=== PATIENT | female | born 1980 | race Caucasian/White ===

== ENCOUNTER 2020-09-16 04:09 | Inpatient (IN) | payer OTHER, SELFPAY ==
[2020-09-16] VITALS (7 sets, daily range): BP systolic 112–137; BP diastolic 63–90; PULSE 80–103; RESP 16–20; TEMP 36.2–36.7; O2SAT 98–100; BMI 28.3
--- NOTE | ~2020-09-16 | CT_ITS ---
EXAMINATION: CT abdomen pelvis w con DATE: 09/16/2020 05:37 INDICATION: Abdominal pain TECHNIQUE: Computed tomography (CT) of the abdomen and pelvis was performed with 100 mL Omnipaque-350 intravenous contrast. Automated exposure control and iterative reconstruction technique were employe d. The dose-length product was 440.13 mGy-cm. COMPARISON: None FINDINGS: Lung bases are clear. Heart size is normal. No pericardial or pleural effusion. Cholecystectomy clips at the gallbladder fossa. Liver, spleen, pancreas and bilateral adrenal glands are normal. Nonobstru cting 5 mm right renal stone.. 4 mm left renal cyst. Mild scattered diverticulosis with inflammatory stranding surrounding a diverticulum at the distal descending colon consistent with diverticulitis. N o abscess or free intraperitoneal gas or fluid. Small bowel and appendix are normal. Bladder is lou l. The uterus is not identified and has likely been surgically resected. Small fat-containing umbilic al and supraumbilical ventral hernias. Mild scattered degenerative skeletal changes in the spine and at both hips. IMPRESSION: 1. Radiographically uncomplicated diverticulitis. 2. Nonobstructing 5 mm right renal stone. Reviewed, dictated and finalized at location A. ESTIMATOR
[2020-09-16 04:47] LABS: Basophils Absolute Auto 0.1 K/mm3 (0.0-0.1); Basophils Percent Auto 0.7 % (0.2-1.2); Eosinophils Absolute Auto 0.2 K/mm3 (0-0.3); Eosinophils Percent Auto 1.5 % (0-4.4); Hematocrit 41.7 % (37.0-47.0); Hemoglobin 13.8 g/dL (12.0-15.0); Immature Granulocyte Absolute 0.02 K/mm3 (0.00-0.031); Immature Granulocyte Percent A 0.2 % (0-0.5); Lymphocytes Absolute Auto 2.38 K/mm3 (0.9-3.2); Mean Corpuscular HGB Conc 33.1 g/dl (32-36); Mean Corpuscular Volume 87.6 fl (80-100); Mean Platelet Volume 9.2 fl (7.4-10.4); Monocytes Absolute Auto 0.9 K/mm3 (0.1-0.6); Neutrophils Absolute Auto 7.3 K/mm3 (1.3-6.7); Neutrophils Percent Auto 67.6 % (45.5-73.1); Platelet Count Result 314 k/mm3 (150-375); Red Blood Count 4.76 M/mm3 (4.2-5.4); Red Cell Distribution Width 12.5 % (11.5-14.5); White Blood Count 10.8 K/mm3 (4.5-10.0)
[2020-09-16] MEDS: SODIUM CHLORIDE 0.9% IV 1,000 ML 999 ML IV CONT (04:54)
[2020-09-16] MEDS: ONDANSETRON INJ 4 MG/2 ML VIAL IV PUSH ×2 (04:55→09:56)
[2020-09-16] MEDS: MORPHINE SULFATE (*CRX) 4 MG/ML INJ IV PUSH (04:55)
--- NOTE | 2020-09-16 04:55 | ED.GENADULT ---
HPI - General Adult General Chief complaint: Abdominal Pain Stated complaint: abd pain, nausea Time Seen by Provider: 09/16/20 04:21 History of Present Illness HPI narrative: Patient 39-year-old female who presents the emergency department with chief complaint of abdominal pain. Patient reports that she had pain in the left lower quadrant started several days ago reports it is worse with movement and improved with rest. The patient states is not improved by anything states that she has prior history of diverticulosis diverticulitis and has had a small bowel obstruction in the past. Patient states this feels similar to whenever she had a small bowel obstruction. Patient reports that she has had decreased stool and has not been passing gas today. Patient denies fever denies chills denies vomiting. Related Data Home Medications Medication Instructions Recorded Confirmed No Home Medications 09/16/20 09/16/20 Allergies Allergy/AdvReac Type Severity Reaction Status Date / Time No Known Allergies Allergy Unknown Uncoded 09/16/20 04:13 Review of Systems Review of Systems: Narrative: A 10 system review of systems was completed on the patient and is negative except for what is stated in the HPI. Nursing and ancillary documentation was reviewed. [facility] Family History Family History (System 01/20/20 @ 07:38 by Desiree Meadows) Other Carcinoma of colon Diabetes mellitus Family history of coronary artery disease Social History Social History (System 01/20/20 @ 07:38 by Desiree Meadows) Alcohol intake: never Comments Patient has past medical history significant for diverticulitis and small bowel obstruction Social history the patient denies smoking Exam Narrative: Exam Narrative: GENERAL: Well-appearing, well-nourished, and in no acute distress. HEAD: Normocephalic, atraumatic. EYES: PERRLA and EOMI. ENT: Nares clear, no rhinorrhea or epistaxis. Mucous membranes moist. NECK: Supple. CHEST: Clear to auscultation. No respiratory distress. HEART: Regular rate and rhythm. No murmur heard. Normal peripheral pulses. ABDOMEN: Soft, diffusely tender worse in the left lower quadrant, nondistended, normal active bowel sounds. EXTREMITIES: Normal range of motion. No edema. SKIN: Warm, dry, no rash. NEURO: No focal deficits. Alert and oriented x3. PSYCH: Normal mood and affect. Course Course Emergency Course: CT scan showed evidence of acute diverticulitis. There is no evidence of bowel obstruction or perforation or abscess. Patient was still having moderate to severe pain patient has had multiple doses of IV pain medication in the emergency department without relief plan at this point will be to start IV antibiotics and admit the patient for pain control and treatment of her diverticulitis. Vital Signs Vital signs: Vital Signs Temperature 36.2 C L 09/16/20 04:11 Pulse Rate 103 H 09/16/20 04:11 Respiratory Rate 16 09/16/20 04:11 Blood Pressure 137/88 09/16/20 04:11 Pulse Oximetry 100 09/16/20 04:11 Temperature 36.2 C L 09/16/20 04:11 Pulse Rate 91 09/16/20 06:20 Respiratory Rate 20 09/16/20 06:20 Blood Pressure 121/77 09/16/20 06:20 Pulse Oximetry 100 09/16/20 06:20 Medical Decision Making Vital Signs Vital Signs: Vital Signs Temperature 36.2 C L 09/16/20 04:11 Pulse Rate 103 H 09/16/20 04:11 Respiratory Rate 16 09/16/20 04:11 Blood Pressure 137/88 09/16/20 04:11 Pulse Oximetry 100 09/16/20 04:11 Temperature 36.2 C L 09/16/20 04:11 Pulse Rate 91 09/16/20 06:20 Respiratory Rate 20 09/16/20 06:20 Blood Pressure 121/77 09/16/20 06:20 Pulse Oximetry 100 09/16/20 06:20 Lab Data Result diagrams: 09/16/20 04:35 09/16/20 04:35 Labs: Lab Results 09/16/20 09/16/20 09/16/20 Range/Units 04:35 04:35 04:35 WBC 10.8 H (4.5-10.0) K/mm3 RBC 4.76 (4.2-5.4) M/mm3 Hgb 13.8 (12.0-15
[2020-09-16 04:58] LABS: Add Urine Microscopic? NO; Appearance Urine Clear (Clear); Bilirubin Urine Negative (Negative); Blood Urine Negative (Negative); Color Urine Colorless (Yellow); Glucose Urine UA Negative (Negative); Ketones Urine Negative (Negative); Leukocyte Esterase Ur Negative LEU/UL (Negative); Mucus Urine Rare /lpf; Nitrate Urine Negative (Negative); Protein Urine Negative (Negative); Specific Grav Ur 1.009 (1.001-1.035); Urobilinogen Urine Negative mg/dL (<2.0); WBC Urine 0-3 /hpf
[2020-09-16 04:59] LABS: Alanine Aminotransferase 28 U/L (4-35); Albumin Level 4.5 g/dL (3.5-5.1); Alkaline Phosphatase 154 U/L (38-126); Anion Gap 9 mmol/L (8-16); Aspartate Amino Transferase 34 U/L (14-36); Bilirubin,Total 0.5 mg/dL (0.2-1.3); Blood Urea Nitrogen 15 mg/dL (7-17); Calcium 9.7 mg/dL (8.4-10.2); Carbon Dioxide 26 mmol/L (22-30); Chloride 104 mmol/L (98-107); Estimated CRCL calculation 89 ml/min; Estimated Glomerular Filt Rate > 60; Glucose 118 mg/dL (65-105); Lipase 313 U/L (23-300); Potassium 4.2 mmol/L (3.4-5.0); Sodium 139 mmol/L (137-145)
--- NOTE | 2020-09-16 05:16 | PC.NURSE ---
Pt. does not have a uterus or ovaries. UCG not needed.
[2020-09-16 05:24] LABS: Lactic Acid Reflex 1.6 mmol/L (0.7-2.1)
[2020-09-16] MEDS: HYDROmorphone HCL INJ (*CRX) 1 MG/ML SYR IV PUSH ×2 (06:18→07:16)
[2020-09-16] MEDS: metroNIDAZOLE 500 MG/ISO 100ML 500 MG/100 ML BAG 100 MG IVPB ×3 (07:19→17:37)
--- NOTE | 2020-09-16 09:15 | PC.NURSE ---
This patient, Arielle Aviles, was admitted to Medical Room 343-01. Patient/family oriented to hospital policies and general routines including ID bracelet, bed and alarms, visiting hours, pain management, procedures, bathroom and other care routines, personal items, smoking policy, room service/diet, and visiting hours. Information on how to activate the Rapid Response Team has been discussed. Patient/Family are encouraged to report perceived risks to care and to ask questions if they do not understand what they are told or what they should do.
[2020-09-16] MEDS: SODIUM CHLORIDE 0.9% IV 1,000 ML 125 ML IV CONT ×2 (09:50→20:05)
[2020-09-16] MEDS: HYDROmorphone HCL INJ (*CRX) 1 MG/ML SYR 0.5 MG IV PUSH ×3 (11:41→21:42)
--- NOTE | 2020-09-16 12:17 | PM.IMHP ---
H&P: HPI History of Present Illness Date/Time: 09/16/20 12:17 Chief Complaint: Abdominal pain Narrative: Arielle Aviles is a 39 year old female with a past medical history diverticulosis and diverticulitis patient presented emergency department with a complaint abdominal pain along the left lower quadrant, pain is persisting for last couple of days and now getting more worse, feel nauseated poor appetite, pain is constant gets worse with movement and walking, patient denies any bleeding, states last couple of days very small amount of BM, patient states she had a similar symptoms last time and patient was diagnosed with small-bowel obstruction, to further evaluate patient had a CT scan of the abdomen which showed: Radiographically uncomplicated diverticulitis no SBO. Patient was started on levofloxacin and Flagyl from ER, will continue pain management, the patient on clear liquid and hydrate the patient, continue to monitor, will consult GI for further recommendation Review of Systems Review of Systems: All systems reviewed & are unremarkable except as noted in HPI and below PMFSH Family History Family History Other Carcinoma of colon Other Diabetes mellitus Grandparent Heart attack Other Family history of coronary artery disease Social History Social History (System 01/20/20 @ 07:38 by Desiree Meadows) Smoking status: Former smoker Alcohol intake: current Drinks per week: 5 Substance use: never Spiritual care concerns: No Meds Home Medications and Allergies Home Medications Medication Instructions Recorded Confirmed Type No Home Medications 09/16/20 09/16/20 History Allergies Allergy/AdvReac Type Severity Reaction Status Date / Time No Known Allergies Allergy Verified 09/16/20 09:32 Vital Signs Vital Signs - 24 hr 09/16/20 04:11 09/16/20 06:20 09/16/20 07:30 Temperature 97.2 F L Pulse Rate 103 H 91 91 Respiratory Rate 16 20 16 Blood Pressure 137/88 121/77 137/90 Pulse Oximetry 100 100 99 09/16/20 08:54 09/16/20 09:42 Temperature 97.4 F L Pulse Rate 82 83 Respiratory Rate 16 18 Blood Pressure 120/85 112/77 Pulse Oximetry 99 98 Exam Narrative: Exam Narrative: Patient is comfortable, NAD HEENT: eyes are clear and none icteric LUNGS:CTA HEART: RR S1S2 ABD: Bowel sounds are faint diffusely tender Lower extremities: no edema SKIN: nonjaundiced Neuro: grossly intact. H&P: Results Labs Labs: Short CBC 09/16/20 Range/Units 04:35 WBC 10.8 H (4.5-10.0) K/mm3 Hgb 13.8 (12.0-15.0) g/dL Hct 41.7 (37.0-47.0) % Plt Count 314 (150-375) k/mm3 BMP 09/16/20 04:35 Sodium 139 Potassium 4.2 Chloride 104 Carbon Dioxide 26 BUN 15 Creatinine 0.60 L Glucose 118 H Calcium 9.7 Liver Function 09/16/20 Range/Units 04:35 Total Bilirubin 0.5 (0.2-1.3) mg/dL AST 34 (14-36) U/L ALT 28 (4-35) U/L Alkaline Phosphatase 154 H (38-126) U/L Albumin 4.5 (3.5-5.1) g/dL Urine 09/16/20 Range/Units 04:35 Urine Color Colorless (Yellow) Urine Appearance Clear (Clear) Urine pH 6.0 (5.0-9.0) Ur Specific [place] 1.009 (1.001-1.035) Urine Protein Negative (Negative) mg/dL Urine Glucose (UA) Negative (Negative) mg/dL Assessment and Plan Assessment and plan (1) Acute diverticulitis: Code(s): K57.92 - Diverticulitis of intestine, part unspecified, without perforation or abscess without bleeding Status: Acute Additional Plan Arielle Aviles is a 39 year old female with a past medical history diverticulosis and diverticulitis patient presented emergency department with a complaint abdominal pain along the left lower quadrant, pain is persisting for last couple of days and now getting more worse, feel nauseated poor appetite, pain is constant gets worse with movement and walking, patient denies any bleeding, states la
[2020-09-16] MEDS: ACETAMINOPHEN 325 MG TABLET 650 MG PO (23:04)
[2020-09-17] MEDS: metroNIDAZOLE 500 MG/ISO 100ML 500 MG/100 ML BAG 100 MG IVPB ×5 (00:14→23:33)
[2020-09-17] MEDS: SODIUM CHLORIDE 0.9% IV 1,000 ML 125 ML IV CONT ×2 (05:01→16:15)
[2020-09-17] MEDS: HYDROmorphone HCL INJ (*CRX) 1 MG/ML SYR 0.5 MG IV PUSH ×5 (05:01→21:13)
[2020-09-17 06:00] VITALS: BP 100/62; PULSE 85; RESP 18; TEMP 36.4; O2SAT 96
[2020-09-17 06:21] LABS: Hematocrit 37.3 % (37.0-47.0); Mean Corpuscular HGB Conc 32.2 g/dl (32-36); Mean Corpuscular Hemoglobin 28.2 pg (26-34); Mean Corpuscular Volume 87.8 fl (80-100); Mean Platelet Volume 9.2 fl (7.4-10.4); Platelet Count Result 269 k/mm3 (150-375); Red Blood Count 4.25 M/mm3 (4.2-5.4); Red Cell Distribution Width 12.6 % (11.5-14.5); White Blood Count 9.3 K/mm3 (4.5-10.0)
[2020-09-17 06:37] LABS: Alanine Aminotransferase 20 U/L (4-35); Albumin Level 3.7 g/dL (3.5-5.1); Alkaline Phosphatase 113 U/L (38-126); Anion Gap 7 mmol/L (8-16); Aspartate Amino Transferase 25 U/L (14-36); Bilirubin,Total 0.7 mg/dL (0.2-1.3); Blood Urea Nitrogen 7 mg/dL (7-17); Calcium 8.9 mg/dL (8.4-10.2); Carbon Dioxide 25 mmol/L (22-30); Chloride 105 mmol/L (98-107); Estimated CRCL calculation 89 ml/min; Estimated Glomerular Filt Rate > 60; Glucose 103 mg/dL (65-105); Magnesium 1.8 mg/dL (1.6-2.3); Potassium 3.9 mmol/L (3.4-5.0); Sodium 137 mmol/L (137-145)
[2020-09-17] MEDS: ONDANSETRON INJ 4 MG/2 ML VIAL IV PUSH (09:12)
--- NOTE | 2020-09-17 11:23 | WPDGICN ---
Assessment and Plan Assessment and plan (1) Acute diverticulitis: Code(s): K57.92 - Diverticulitis of intestine, part unspecified, without perforation or abscess without bleeding Status: Acute Assessment and Plan: Patient's symptom complex all most consistent with acute diverticulitis. CT scan appears to confirm this finding. Plan is for bowel rest with IV antibiotics. We will hour to have liquid diet if tolerated. Be slow to advance this depending on whether she has bowel movements. Continue broad-spectrum antibiotics for the immediate future. We will consider a colonoscopy electively in 1-2 months after resolution of symptoms hopefully she will continue to improve. (2) Nephrolithiasis: Code(s): N20.0 - Calculus of kidney Status: Acute Assessment and Plan: Asymptomatic kidney stone noted on CT scan. This is likely just incidental at this time. GI Consult Note Consult date/time: 09/17/20 11:23 HPI: Arielle Aviles is a 39 year old female I am asked to see at the request of the hospitalist service. Patient reports low abdominal pain that began night before last. Particularly in the left lower quadrant. She states that she went to the emergency room a CT scan was performed which was consistent with diverticulitis. She has had no bowel movements since admission hospital. Pain continues to be present. She denies nausea vomiting but has no appetite. Patient reports last hospitalization in 2018 where she was concerned over possible small-bowel obstruction. She improved with broad-spectrum antibiotic coverage a colonoscopy performed during that hospital stay was unremarkable. No evidence of diverticulitis or enteritis was confirmed at that time. It was presumed she had an infectious etiology. Patient currently complains of ongoing pain with her current admission. Review of Systems Review of Systems: All systems reviewed & are unremarkable except as noted in HPI and below PMFSH Family History Family History Other Carcinoma of colon Other Diabetes mellitus Grandparent Heart attack Other Family history of coronary artery disease Social History Social History (System 01/20/20 @ 07:38 by Desiree Meadows) Smoking status: Former smoker Alcohol intake: current Drinks per week: 5 Substance use: never Spiritual care concerns: No Meds Home Medications and Allergies Home Medications Medication Instructions Recorded Confirmed Type No Home Medications 09/16/20 09/16/20 History Allergies Allergy/AdvReac Type Severity Reaction Status Date / Time No Known Allergies Allergy Verified 09/16/20 09:32 Vital Signs Vital Signs - 24 hr 09/16/20 14:00 09/16/20 21:06 09/17/20 06:00 Temperature 98.0 F 97.9 F 97.6 F Pulse Rate 80 97 85 Respiratory Rate 18 17 18 Blood Pressure 118/86 117/63 100/62 Pulse Oximetry 100 98 96 Exam Narrative: Exam Narrative: Physical exam reveals patient to be alert. Vital signs are stable. She is afebrile. HEENT exam reveals no scleral icterus. Lungs are clear to auscultation and percussion. Heart is without murmur or extra sounds. Abdominal exam bowel sounds are present abdomen is soft tender particularly in the low abdomen. More so on the left side. No masses are elicited. Digital external rectal exam is deferred at this time. Results Labs CBC & Chem 7: 09/17/20 05:59 09/17/20 05:59 Labs: Short CBC 09/17/20 Range/Units 05:59 WBC 9.3 (4.5-10.0) K/mm3 Hgb 12.0 (12.0-15.0) g/dL Hct 37.3 (37.0-47.0) % Plt Count 269 (150-375) k/mm3 BMP 09/17/20 05:59 Sodium 137 Potassium 3.9 Chloride 105 Carbon Dioxide 25 BUN 7 D Creatinine 0.70 Glucose 103 Calcium 8.9 Liver Function 09/17/20 Range/Units 05:59 Total Bilirubin 0.7 (0.2-1.3) mg/dL AST 25 (14-36) U/L ALT 20 (4-35)
[2020-09-17] MEDS: ACETAMINOPHEN 325 MG TABLET 650 MG PO (11:50)
[2020-09-17 14:00] VITALS: BP 105/64; PULSE 93; RESP 16; TEMP 36.1; O2SAT 97
--- NOTE | 2020-09-17 15:10 | PM.IMPN ---
Progress Note: A&P Assessment and Plan (1) Acute diverticulitis: Code(s): K57.92 - Diverticulitis of intestine, part unspecified, without perforation or abscess without bleeding Status: Acute Additional Plan 09/17/20 15:10 Arielle Aviles is a 39 year old female with a past medical history diverticulosis and diverticulitis patient presented emergency department with a complaint abdominal pain along the left lower quadrant, pain was persisting for last couple of days and was getting more worse, felt nauseated poor appetite, pain is constant gets worse with movement and walking, patient denies any bleeding, states last couple of days very small amount of BM, patient states she had a similar symptoms last time and patient was diagnosed with small-bowel obstruction, to further evaluate patient had a CT scan of the abdomen which showed: Radiographically uncomplicated diverticulitis no SBO. Patient was started on levofloxacin and Flagyl from ER, today patient still complains abdominal, passing little gas and no BM patient seen by GI agrees with the current management, will continue pain management, the patient on clear liquid and hydrate the patient, continue to monitor. Once patient pain has improved, having BM will advanced her diet and do the discharge planning. Subjective Date/time seen: 09/17/20 15:10 Arielle Aviles is a 39 year old female with a past medical history diverticulosis and diverticulitis patient presented emergency department with a complaint abdominal pain along the left lower quadrant, pain was persisting for last couple of days and was getting more worse, felt nauseated poor appetite, pain is constant gets worse with movement and walking, patient denies any bleeding, states last couple of days very small amount of BM, patient states she had a similar symptoms last time and patient was diagnosed with small-bowel obstruction, to further evaluate patient had a CT scan of the abdomen which showed: Radiographically uncomplicated diverticulitis no SBO. Patient was started on levofloxacin and Flagyl from ER, today patient still complains abdominal, passing little gas and no BM patient seen by GI agrees with the current management, will continue pain management, the patient on clear liquid and hydrate the patient, continue to monitor. Once patient pain has improved, having BM will advanced her diet and do the discharge planning. Review of Systems Review of Systems: All systems reviewed & are unremarkable except as noted in HPI and below Exam Narrative: Exam Narrative: Patient is comfortable, NAD HEENT: eyes are clear and none icteric LUNGS:CTA HEART: RR S1S2 ABD: Bowel sounds are faint diffusely tender Lower extremities: no edema SKIN: nonjaundiced Neuro: grossly intact. Objective Data Vital Signs Vital Signs: Vital Signs - 24 hr 09/16/20 21:06 09/17/20 06:00 Temperature 97.9 F 97.6 F Pulse Rate 97 85 Respiratory Rate 17 18 Blood Pressure 117/63 100/62 Pulse Oximetry 98 96 Intake/Output Intake/Output: Intake & Output 09/14/20 09/15/20 09/16/20 09/17/20 23:59 23:59 23:59 23:59 Intake Total 3010 2120 Output Total 1600 950 Balance 1410 1170 Meds/Results Medications: Active Medications Generic Name Dose Route Start Last Admin Trade Name Freq PRN Reason Stop Dose Admin Acetaminophen 650 mg 09/16/20 22:48 09/17/20 11:50 Acetaminophen 325 Mg Tablet PO 650 mg Q6H PRN Administration Mild Pain (1-3) or Fever Hydromorphone HCl 0.5 mg 09/16/20 07:48 09/17/20 13:12 Hydromorphone Hcl Inj (*Crx) 1 Mg/Ml Syr IV PUSH 0.5 mg Q4H PRN Administration Pain Rated 7-10 Metronidazole 500 mg in 100 mls @ 100 mls/hr 09/16/20 12:00 09/17/20 12:51 Flagyl 500 Mg/Iso Soln 100 Ml IVPB Infused Q6H WILEY Infusion Levofloxacin/Dextrose 750 mg in 150 mls @ 100 mls/hr 09/17/20 09:00 09/17/20 10:45 Levaquin 750 Mg/D5w 150 Ml IVPB Infused Q24H WILEY Infusi
[2020-09-17 19:44] VITALS: BP 122/66; PULSE 85; RESP 14; TEMP 36.9; O2SAT 100
[2020-09-18] MEDS: HYDROmorphone HCL INJ (*CRX) 1 MG/ML SYR 0.5 MG IV PUSH ×2 (01:49→08:55)
[2020-09-18] MEDS: SODIUM CHLORIDE 0.9% IV 1,000 ML 125 ML IV CONT (01:54)
[2020-09-18] MEDS: metroNIDAZOLE 500 MG/ISO 100ML 500 MG/100 ML BAG 100 MG IVPB ×4 (05:20→23:00)
[2020-09-18 05:24] VITALS: BP 106/64; PULSE 86; RESP 16; TEMP 36.5; O2SAT 96
[2020-09-18 05:58] LABS: Hematocrit 34.1 % (37.0-47.0); Hemoglobin 11.2 g/dL (12.0-15.0); Mean Corpuscular HGB Conc 32.8 g/dl (32-36); Mean Corpuscular Hemoglobin 29.1 pg (26-34); Mean Corpuscular Volume 88.6 fl (80-100); Mean Platelet Volume 9.3 fl (7.4-10.4); Platelet Count Result 251 k/mm3 (150-375); Red Blood Count 3.85 M/mm3 (4.2-5.4); Red Cell Distribution Width 12.3 % (11.5-14.5); White Blood Count 7.7 K/mm3 (4.5-10.0)
[2020-09-18 07:10] LABS: Alanine Aminotransferase 16 U/L (4-35); Albumin Level 3.3 g/dL (3.5-5.1); Alkaline Phosphatase 93 U/L (38-126); Anion Gap 6 mmol/L (8-16); Aspartate Amino Transferase 21 U/L (14-36); Bilirubin,Total 0.4 mg/dL (0.2-1.3); Blood Urea Nitrogen 7 mg/dL (7-17); Calcium 8.8 mg/dL (8.4-10.2); Carbon Dioxide 26 mmol/L (22-30); Chloride 107 mmol/L (98-107); Estimated CRCL calculation 89 ml/min; Estimated Glomerular Filt Rate > 60; Glucose 98 mg/dL (65-105); Magnesium 1.8 mg/dL (1.6-2.3); Potassium 3.7 mmol/L (3.4-5.0); Sodium 139 mmol/L (137-145)
--- NOTE | 2020-09-18 08:35 | WPDGIPROGNO ---
Progress Note: A&P Assessment and Plan (1) Acute diverticulitis: Code(s): K57.92 - Diverticulitis of intestine, part unspecified, without perforation or abscess without bleeding Status: Acute Assessment and Plan: Patient with acute sigmoid diverticulitis. This correlates with findings of CT scan. Because of ongoing tenderness would continue IV antibiotics. Advance diet at this time slowly. Consider laxatives or suppositories to encourage bowel movements. (2) Nephrolithiasis: Code(s): N20.0 - Calculus of kidney Status: Acute Assessment and Plan: Incidental finding at this time. Not symptomatic. Subjective Date/time seen: 09/18/20 08:35 Patient feels better today. Tolerating liquids with no difficulty. She reports pain is improving now localized to the left lower quadrant. Has passed flatus but denies any stool. Review of Systems Review of Systems: All systems reviewed & are unremarkable except as noted in HPI and below Exam Narrative: Exam Narrative: Physical exam reveals Vital Signs to be stable. Patient remains anicteric. Lungs are clear. Heart without murmur. Abdomen bowel sounds are present soft tenderness located in left lower quadrant. Objective Data Vital Signs Vital Signs: Vital Signs - 24 hr 09/17/20 14:00 09/17/20 19:44 09/18/20 05:24 Temperature 96.9 F L 98.4 F 97.7 F Pulse Rate 93 85 86 Respiratory Rate 16 14 16 Blood Pressure 105/64 122/66 106/64 Pulse Oximetry 97 100 96 Intake/Output Intake/Output: Intake & Output 09/15/20 09/16/20 09/17/20 09/18/20 23:59 23:59 23:59 23:59 Intake Total 3010 3640 1200 Output Total 1600 950 500 Balance 1410 2690 700 Meds/Results Medications: Active Medications Generic Name Dose Route Start Last Admin Trade Name Freq PRN Reason Stop Dose Admin Acetaminophen 650 mg 09/16/20 22:48 09/17/20 11:50 Acetaminophen 325 Mg Tablet PO 650 mg Q6H PRN Administration Mild Pain (1-3) or Fever Hydromorphone HCl 0.5 mg 09/16/20 07:48 09/18/20 01:49 Hydromorphone Hcl Inj (*Crx) 1 Mg/Ml Syr IV PUSH 0.5 mg Q4H PRN Administration Pain Rated 7-10 Metronidazole 500 mg in 100 mls @ 100 mls/hr 09/16/20 12:00 09/18/20 06:20 Flagyl 500 Mg/Iso Soln 100 Ml IVPB Infused Q6H WILEY Infusion Levofloxacin/Dextrose 750 mg in 150 mls @ 100 mls/hr 09/17/20 09:00 09/17/20 10:45 Levaquin 750 Mg/D5w 150 Ml IVPB Infused Q24H WILEY Infusion Sodium Chloride 1,000 mls @ 125 mls/hr 09/16/20 07:50 09/18/20 01:54 Normal Saline Iv IV CONT 125 mls/hr .Q8H WILEY Administration Ondansetron HCl 4 mg 09/16/20 07:48 09/17/20 09:12 Ondansetron Inj 4 Mg/2 Ml Vial IV PUSH 4 mg Q4H PRN Administration Nausea Radiology Results: ITS Impressions Abdomen/Pelvis CT 09/16/20 11:47 IMPRESSION: 1. Radiographically uncomplicated diverticulitis. 2. Nonobstructing 5 mm right renal stone. Labs Labs: Laboratory Results - last 24 hr 09/18/20 09/18/20 05:37 05:37 WBC 7.7 RBC 3.85 L Hgb 11.2 L Hct 34.1 L MCV 88.6 MCH 29.1 MCHC 32.8 RDW 12.3 Plt Count 251 MPV 9.3 Sodium 139 Potassium 3.7 Chloride 107 Carbon Dioxide 26 Anion Gap 6 L BUN 7 Creatinine 0.70 Estim Creat Clear Calc 89 Estimated GFR > 60 Glucose 98 Calcium 8.8 Magnesium 1.8 Total Bilirubin 0.4 AST 21 ALT 16 Alkaline Phosphatase 93 Total Protein 6.0 L Albumin 3.3 L
[2020-09-18] MEDS: BISACODYL 10 MG SUPPOSITORY RECTAL (08:55)
[2020-09-18 14:00] VITALS: BP 112/76; PULSE 80; RESP 16; TEMP 36.2; O2SAT 99
[2020-09-18 14:20] VITALS: O2SAT 98
--- NOTE | 2020-09-18 15:49 | PM.IMPN ---
Progress Note: A&P Assessment and Plan (1) Acute diverticulitis: Code(s): K57.92 - Diverticulitis of intestine, part unspecified, without perforation or abscess without bleeding Status: Acute Additional Plan 09/18/20 15:49 Arielle Aviles is a 39 year old female with a past medical history diverticulosis and diverticulitis patient presented emergency department with a complaint abdominal pain along the left lower quadrant, pain was persisting for last couple of days and was getting more worse, felt nauseated poor appetite, pain is constant gets worse with movement and walking, patient denies any bleeding, states last couple of days very small amount of BM, patient states she had a similar symptoms last time and patient was diagnosed with small-bowel obstruction, to further evaluate patient had a CT scan of the abdomen which showed: Radiographically uncomplicated diverticulitis no SBO. Patient was started on levofloxacin and Flagyl from ER, today patient still complains abdominal, passing little gas and no BM patient seen by GI agrees with the current management, will continue pain management, the patient on clear liquid and hydrate the patient, continue to monitor. Once patient pain has improved, having BM will advanced her diet and do the discharge planning. 09/18/20 patient was seen by GI patient was given suppository and did have a small-bowel movement, patient states the pain is little better not as nauseated patient is able to tolerate clear liquid will advanced diet as tolerated, denies any fever, will start the patient on [place] for pain management and use Dilaudid only as needed, the patient remains clinically stable will discharge the patient home tomorrow Subjective Date/time seen: 09/18/20 15:49 Arielle Aviles is a 39 year old female with a past medical history diverticulosis and diverticulitis patient presented emergency department with a complaint abdominal pain along the left lower quadrant, pain was persisting for last couple of days and was getting more worse, felt nauseated poor appetite, pain is constant gets worse with movement and walking, patient denies any bleeding, states last couple of days very small amount of BM, patient states she had a similar symptoms last time and patient was diagnosed with small-bowel obstruction, to further evaluate patient had a CT scan of the abdomen which showed: Radiographically uncomplicated diverticulitis no SBO. Patient was started on levofloxacin and Flagyl from ER, today patient still complains abdominal, passing little gas and no BM patient seen by GI agrees with the current management, will continue pain management, the patient on clear liquid and hydrate the patient, continue to monitor. Once patient pain has improved, having BM will advanced her diet and do the discharge planning. 09/18/20 patient was seen by GI patient was given suppository and did have a small-bowel movement, patient states the pain is little better not as nauseated patient is able to tolerate clear liquid will advanced diet as tolerated, denies any fever, will start the patient on [place] for pain management and use Dilaudid only as needed, the patient remains clinically stable will discharge the patient home tomorrow Review of Systems Review of Systems: All systems reviewed & are unremarkable except as noted in HPI and below Exam Narrative: Exam Narrative: Patient is comfortable, NAD HEENT: eyes are clear and none icteric LUNGS:CTA HEART: RR S1S2 ABD: Bowel sounds are faint diffusely tender Lower extremities: no edema SKIN: nonjaundiced Neuro: grossly intact. Objective Data Vital Signs Vital Signs: Vital Signs - 24 hr 09/17/20 19:44 09/18/20 05:24 09/18/20 14:00 Temperature 98.4 F 97.7 F 97.1 F L Pulse Rate 85 86 80 Respiratory Rate 14 16 16 Blood Pressure 122/66 106/64 112/76 Pulse Oximetry 100 96 99 09/18/20 14:20 Temperature Pulse Rate Respiratory Rate Blood Pressure Pul
[2020-09-18] MEDS: HYDROcodone/acetaminophen (*CRX) 5-325 MG TABLET 1 TAB PO (16:05)
[2020-09-18 19:47] VITALS: BP 110/64; PULSE 91; RESP 14; TEMP 36.3; O2SAT 96
[2020-09-19] MEDS: metroNIDAZOLE 500 MG/ISO 100ML 500 MG/100 ML BAG 100 MG IVPB (05:03)
[2020-09-19 05:36] VITALS: BP 118/73; PULSE 82; RESP 12; TEMP 36; O2SAT 100
[2020-09-19 06:22] LABS: Hemoglobin 12.2 g/dL (12.0-15.0); Mean Corpuscular Hemoglobin 29.4 pg (26-34); Mean Corpuscular Volume 89.2 fl (80-100); Mean Platelet Volume 9.4 fl (7.4-10.4); Platelet Count Result 291 k/mm3 (150-375); Red Blood Count 4.15 M/mm3 (4.2-5.4); Red Cell Distribution Width 12.2 % (11.5-14.5); White Blood Count 6.3 K/mm3 (4.5-10.0)
[2020-09-19 06:42] LABS: Alanine Aminotransferase 15 U/L (4-35); Albumin Level 3.4 g/dL (3.5-5.1); Alkaline Phosphatase 100 U/L (38-126); Anion Gap 7 mmol/L (8-16); Aspartate Amino Transferase 22 U/L (14-36); Bilirubin,Total 0.2 mg/dL (0.2-1.3); Blood Urea Nitrogen 10 mg/dL (7-17); Carbon Dioxide 26 mmol/L (22-30); Chloride 106 mmol/L (98-107); Estimated CRCL calculation 102 ml/min; Estimated Glomerular Filt Rate > 60; Glucose 113 mg/dL (65-105); Magnesium 1.8 mg/dL (1.6-2.3); Potassium 3.8 mmol/L (3.4-5.0); Sodium 139 mmol/L (137-145)
--- NOTE | 2020-09-19 08:49 | WPDGIPROGNO ---
Progress Note: A&P Assessment and Plan (1) Acute diverticulitis: Code(s): K57.92 - Diverticulitis of intestine, part unspecified, without perforation or abscess without bleeding Status: Acute Assessment and Plan: Patient with acute sigmoid diverticulitis. Clinically improving has been on intravenous antibiotics to date. Plan to change to oral antibiotics and continue these for 1 week after discharge. Allow diet as tolerated. Discharge later today or in the morning if primary service agrees. Follow-up colonoscopy anticipated in 1-2 months. Subjective Date/time seen: 09/19/20 08:49 Patient alert and comfortable this morning. Tolerating regular diet. States abdominal pain is much improved but still some discomfort in the left lower quadrant. Passed a bowel movement yesterday. Feels much improved no longer requiring pain medications. Review of Systems Review of Systems: All systems reviewed & are unremarkable except as noted in HPI and below Exam Narrative: Exam Narrative: Physical exam reveals patient to be alert comfortable at rest. Vital signs are stable. She is afebrile. HEENT exam she is anicteric. Lungs are clear to auscultation and percussion. Heart is without murmur. Abdomen bowel sounds present soft left lower quadrant tenderness is still present but improving. Objective Data Vital Signs Vital Signs: Vital Signs - 24 hr 09/18/20 14:00 09/18/20 14:20 09/18/20 19:47 Temperature 97.1 F L 97.4 F L Pulse Rate 80 91 Respiratory Rate 16 14 Blood Pressure 112/76 110/64 Pulse Oximetry 99 98 96 09/19/20 05:36 Temperature 96.8 F L Pulse Rate 82 Respiratory Rate 12 Blood Pressure 118/73 Pulse Oximetry 100 Intake/Output Intake/Output: Intake & Output 09/16/20 09/17/20 09/18/20 09/19/20 23:59 23:59 23:59 23:59 Intake Total 3010 3640 3780 500 Output Total 1600 950 500 300 Balance 1410 2690 3280 200 Meds/Results Medications: Active Medications Generic Name Dose Route Start Last Admin Trade Name Freq PRN Reason Stop Dose Admin Acetaminophen 650 mg 09/16/20 22:48 09/17/20 11:50 Acetaminophen 325 Mg Tablet PO 650 mg Q6H PRN Administration Mild Pain (1-3) or Fever Hydrocodone Bitart/Acetaminophen 1 tab 09/18/20 10:55 09/18/20 16:05 Hydrocodone/Acetaminophen (*Crx) 5-325 Mg Tablet PO 1 tab Q4-6H PRN Administration Pain Rated 4-6 Hydromorphone HCl 0.5 mg 09/16/20 07:48 09/18/20 08:55 Hydromorphone Hcl Inj (*Crx) 1 Mg/Ml Syr IV PUSH 0.5 mg Q4H PRN Administration Pain Rated 7-10 Metronidazole 500 mg in 100 mls @ 100 mls/hr 09/16/20 12:00 09/19/20 06:17 Flagyl 500 Mg/Iso Soln 100 Ml IVPB Infused Q6H WILEY Infusion Levofloxacin/Dextrose 750 mg in 150 mls @ 100 mls/hr 09/17/20 09:00 09/19/20 08:43 Levaquin 750 Mg/D5w 150 Ml IVPB 100 mls/hr Q24H WILEY Administration Ondansetron HCl 4 mg 09/16/20 07:48 09/17/20 09:12 Ondansetron Inj 4 Mg/2 Ml Vial IV PUSH 4 mg Q4H PRN Administration Nausea Radiology Results: ITS Impressions Abdomen/Pelvis CT 09/16/20 11:47 IMPRESSION: 1. Radiographically uncomplicated diverticulitis. 2. Nonobstructing 5 mm right renal stone. Labs Labs: Laboratory Results - last 24 hr 09/19/20 09/19/20 05:52 05:52 WBC 6.3 RBC 4.15 L Hgb 12.2 Hct 37.0 MCV 89.2 MCH 29.4 MCHC 33.0 RDW 12.2 Plt Count 291 MPV 9.4 Sodium 139 Potassium 3.8 Chloride 106 Carbon Dioxide 26 Anion Gap 7 L BUN 10 Creatinine 0.60 L Estim Creat Clear Calc 102 Estimated GFR > 60 Glucose 113 H Calcium 9.0 Magnesium 1.8 Total Bilirubin 0.2 AST 22 ALT 15 Alkaline Phosphatase 100 Total Protein 6.0 L Albumin 3.4 L
--- NOTE | 2020-09-19 10:25 | PM.DS ---
DS: Admitting Diagnosis Admitting Diagnosis Admitting Diagnosis: Abdominal pain DS: Discharge Diagnosis Discharge Diagnosis (1) Acute diverticulitis: Code(s): K57.92 - Diverticulitis of intestine, part unspecified, without perforation or abscess without bleeding Status: Acute DS: Summary Hospital Course Reason for hospitalization: Chief Complaint: Abdominal pain Narrative: Arielle Aviles is a 39 year old female with a past medical history diverticulosis and diverticulitis patient presented emergency department with a complaint abdominal pain along the left lower quadrant, pain is persisting for last couple of days and now getting more worse, feel nauseated poor appetite, pain is constant gets worse with movement and walking, patient denies any bleeding, states last couple of days very small amount of BM, patient states she had a similar symptoms last time and patient was diagnosed with small-bowel obstruction, to further evaluate patient had a CT scan of the abdomen which showed: Radiographically uncomplicated diverticulitis no SBO. Patient was started on levofloxacin and Flagyl from ER, will continue pain management, the patient on clear liquid and hydrate the patient, continue to monitor, will consult GI for further recommendation Hospital Course: Arielle Aviles is a 39 year old female with a past medical history diverticulosis and diverticulitis patient presented emergency department with a complaint abdominal pain along the left lower quadrant, pain was persisting for last couple of days and was getting more worse, felt nauseated poor appetite, pain is constant gets worse with movement and walking, patient denies any bleeding, states last couple of days very small amount of BM, patient states she had a similar symptoms last time and patient was diagnosed with small-bowel obstruction, to further evaluate patient had a CT scan of the abdomen which showed: Radiographically uncomplicated diverticulitis no SBO. Patient was started on levofloxacin and Flagyl from ER, today patient still complains abdominal, passing little gas and no BM patient seen by GI agrees with the current management, will continue pain management, the patient on clear liquid and hydrate the patient, continue to monitor. Once patient pain has improved, having BM will advanced her diet and do the discharge planning. 09/18/20 patient was seen by GI patient was given suppository and did have a small-bowel movement, patient states the pain is little better not as nauseated patient is able to tolerate clear liquid will advanced diet as tolerated, denies any fever, will start the patient on [place] for pain management and use Dilaudid only as needed, the patient remains clinically stable will discharge the patient home tomorrow. Today patient was seen by Dr. Ayon, patient can be discharged home on oral abx, patient is able to tolerated her diet and clinically stable, will discharge patient today. Status at Discharge Functional status at discharge: independent ambulation Overall status at discharge: patient is back to baseline Time Spent with Patient Time attestation: Patient was seen and examined at the time of the discharge Condition at discharge is stable Code status: Full code. Time spent preparing discharge summary, discharge medications, discussing discharge planning with rn case management and patient is 35 minutes. Time spent: Greater than 30 minutes Exam Narrative: Exam Narrative: Patient is comfortable, NAD HEENT: eyes are clear and none icteric LUNGS:CTA HEART: RR S1S2 ABD: Bowel sounds are faint diffusely tender Lower extremities: no edema SKIN: nonjaundiced Neuro: grossly intact. DS: Data Data Completed and Pending Labs on day of discharge: Labs from last 24 hours 09/19/20 09/19/20 05:52 05:52 WBC 6.3 RBC 4.15 L Hgb 12.2 Hct 37.0 MCV 89.2 MCH 29.4 MCHC 33.0 RDW 12.2 Plt Count 291 MPV 9.4 Sodium 139 Potassium 3.8
== END 2020-09-19 11:05 | disposition home or self-care (01) | DRG 392 ==
LOC: ANHED 07:48 → ANH3MED 08:19
PROVIDERS: Admitting Provider Family Medicine; Emergency Provider Emergency Medicine; PCP Internal Medicine; Visit Provider Family Medicine
DX: K57.32 Diverticulitis of large intestine without perforation or abscess without bleeding (principal); N20.0 Calculus of kidney; Z87.891 Personal history of nicotine dependence; Z23 Encounter for immunization
CPT/HCPCS: 36415; 74177; 80053; 81003; 83605; 83690; 83735; 85025; 85027; 90471; 90653; 96361; 96365; 96366; 96367; 96375; 96376; 99285; A9270; G0008; G0378; J1170; J1956; J2270; J2405; J7030; Q9967

== ENCOUNTER 2020-12-17 10:28 | Emergency (ER) | payer OTHER, SELFPAY ==
--- NOTE | ~2020-12-17 | CT_ITS ---
EXAMINATION: CT abdomen pelvis w con DATE: 12/17/2020 11:41 INDICATION: Left lower quadrant abdominal pain TECHNIQUE: Computed tomography (CT) of the abdomen and pelvis was performed with 100 mL Omnipaque-350 intravenous contrast. Automated exposure control and iterative reconstruction technique were employe d. The dose-length product was 359.54 mGy-cm. COMPARISON: None FINDINGS: Lung bases are clear. Heart size is normal. No pericardial or pleural effusion. Cholecystectomy clips at the gallbladder fossa. Liver, pancreas, bilateral adrenal glands and kidneys are normal. 11 mm sp lenic cyst. There are couple small splenule along the anterior margin of the spleen. Normal appendix. No bowel obstruction. Mild scattered colonic diverticulosis with mild stranding surrounding a divert iculum at the mid sigmoid colon consistent with diverticulitis. No abscess or free intraperitoneal ga s or fluid. The uterus is not identified and has likely been surgically resected. No pathologically e nlarged abdominal or pelvic lymphadenopathy. Mild bilateral hip osteoarthritis. IMPRESSION: 1. Radiographically uncomplicated sigmoid diverticulitis. Reviewed, dictated and finalized at location B.
[2020-12-17 10:31] VITALS: BP 135/90; PULSE 82; RESP 18; TEMP 36.9; O2SAT 100
[2020-12-17 11:01] LABS: Basophils Absolute Auto 0.1 K/mm3 (0.0-0.1); Basophils Percent Auto 1.1 % (0.2-1.2); Eosinophils Absolute Auto 0.1 K/mm3 (0-0.3); Eosinophils Percent Auto 2.3 % (0-4.4); Hematocrit 41.3 % (37.0-47.0); Hemoglobin 13.6 g/dL (12.0-15.0); Immature Granulocyte Absolute 0.01 K/mm3 (0.00-0.031); Immature Granulocyte Percent A 0.2 % (0-0.5); Lymphocytes Absolute Auto 1.78 K/mm3 (0.9-3.2); Mean Corpuscular HGB Conc 32.9 g/dl (32-36); Mean Corpuscular Hemoglobin 28.7 pg (26-34); Mean Corpuscular Volume 87.1 fl (80-100); Mean Platelet Volume 9.4 fl (7.4-10.4); Monocytes Absolute Auto 0.4 K/mm3 (0.1-0.6); Monocytes Percent Auto 7.8 % (2.6-8.5); Neutrophils Absolute Auto 2.9 K/mm3 (1.3-6.7); Neutrophils Percent Auto 54.6 % (45.5-73.1); Platelet Count Result 309 k/mm3 (150-375); Red Blood Count 4.74 M/mm3 (4.2-5.4); Red Cell Distribution Width 12.7 % (11.5-14.5); White Blood Count 5.2 K/mm3 (4.5-10.0)
[2020-12-17 11:14] LABS: Alanine Aminotransferase 29 U/L (4-35); Albumin Level 4.6 g/dL (3.5-5.1); Alkaline Phosphatase 129 U/L (38-126); Anion Gap 8 mmol/L (8-16); Aspartate Amino Transferase 34 U/L (14-36); Bilirubin,Total 0.3 mg/dL (0.2-1.3); Blood Urea Nitrogen 13 mg/dL (7-17); Calcium 9.5 mg/dL (8.4-10.2); Carbon Dioxide 25 mmol/L (22-30); Chloride 107 mmol/L (98-107); Estimated CRCL calculation 89 ml/min; Estimated Glomerular Filt Rate > 60; Glucose 103 mg/dL (65-105); Lipase 186 U/L (23-300); Sodium 140 mmol/L (137-145)
[2020-12-17 11:27] VITALS: BP 125/91; PULSE 79; RESP 14; O2SAT 97
[2020-12-17] MEDS: SODIUM CHLORIDE 0.9% IV 1,000 ML 999 ML IV CONT (11:29)
[2020-12-17] MEDS: MORPHINE SULFATE (*CRX) 4 MG/ML INJ IV PUSH (11:29)
[2020-12-17 11:53] LABS: Add Urine Microscopic? YES; Appearance Urine Clear (Clear); Bilirubin Urine Negative (Negative); Blood Urine Negative (Negative); Color Urine Yellow (Yellow); Glucose Urine UA Negative (Negative); Ketones Urine Negative (Negative); Leukocyte Esterase Ur 1+ LEU/UL (Negative); Mucus Urine Rare /lpf; Nitrate Urine Negative (Negative); Protein Urine Negative (Negative); RBC Urine 0-2 /hpf (0-2); Specific Grav Ur 1.013 (1.001-1.035); Squamous Epithelial Cell Urine Rare /hpf (Few); Urobilinogen Urine Negative mg/dL (<2.0)
--- NOTE | 2020-12-17 12:14 | ED.GENADULT ---
HPI - General Adult General Chief complaint: Abdominal Pain Stated complaint: L abd pain Time Seen by Provider: 12/17/20 11:09 History of Present Illness HPI narrative: Patient is a 39-year-old female who presents ER with left lower quadrant abdominal pain. Ongoing over the last 4 days. Contacted her PCP who called in Cipro and Flagyl for. She has history of diverticulitis. Patient reports she has been feeling like she needs to have a bowel movement but cannot go. No fevers or chills or sweats. No chest pain or chest pressure. No urinary issues. Related Data Allergies Allergy/AdvReac Type Severity Reaction Status Date / Time No Known Allergies Allergy Verified 11/26/20 13:57 Review of Systems Review of Systems: All systems reviewed & are unremarkable except as noted in HPI and below Constitutional: Constitutional: Denies chills, Denies fever(s) and Denies weakness ENT: Denies nasal congestion and Denies sore throat Cardiovascular: Cardiovascular: Denies chest pain and Denies radiating jaw, neck or arm pain Gastrointestinal: Gastrointestinal: Reports abdominal pain, Reports bloating, Reports constipation, Denies nausea and Denies vomiting PMFSH Past Medical History Medical History (Updated 12/17/20 @ 12:20 by Poli Jordan MD) Acute diverticulitis Nephrolithiasis Surgical History Surgical History (Updated 12/17/20 @ 12:16 by Poli Jordan MD) No pertinent past surgical history Family History Family History Other Carcinoma of colon Other Diabetes mellitus Grandparent Heart attack Other Family history of coronary artery disease Social History Social History Smoking status: Former smoker Alcohol intake: current Drinks per week: 5 Substance use: never Spiritual care concerns: No Exam Narrative: Exam Narrative: GENERAL: Well-appearing, well-nourished, and in no acute distress. HEAD: Normocephalic, atraumatic. CHEST: Clear to auscultation. No respiratory distress. HEART: Regular rate and rhythm. Normal peripheral pulses. ABDOMEN: Soft, mild to moderate tenderness left lower quadrant, nondistended. EXTREMITIES: Normal range of motion. No edema. SKIN: Warm, dry, no rash. NEURO: Alert and oriented x3. PSYCH: Normal mood and affect. Course Course Emergency Course: Patient informed results. She has the appropriate medications for home. Will give some pain meds for home. Vital Signs Vital signs: Vital Signs Temperature 98.4 F 12/17/20 10:31 Pulse Rate 82 12/17/20 10:31 Respiratory Rate 18 12/17/20 10:31 Blood Pressure 135/90 12/17/20 10:31 Pulse Oximetry 100 12/17/20 10:31 Temperature 98.4 F 12/17/20 10:31 Pulse Rate 79 12/17/20 11:27 Respiratory Rate 14 12/17/20 11:27 Blood Pressure 125/91 H 12/17/20 11:27 Pulse Oximetry 97 12/17/20 11:27 Medical Decision Making Vital Signs Vital Signs: Vital Signs Temperature 98.4 F 12/17/20 10:31 Pulse Rate 82 12/17/20 10:31 Respiratory Rate 18 12/17/20 10:31 Blood Pressure 135/90 12/17/20 10:31 Pulse Oximetry 100 12/17/20 10:31 Temperature 98.4 F 12/17/20 10:31 Pulse Rate 79 12/17/20 11:27 Respiratory Rate 14 12/17/20 11:27 Blood Pressure 125/91 H 12/17/20 11:27 Pulse Oximetry 97 12/17/20 11:27 Lab Data Result diagrams: 12/17/20 10:50 12/17/20 10:50 Labs: Lab Results 12/17/20 12/17/20 12/17/20 Range/Units 10:50 10:50 11:45 WBC 5.2 (4.5-10.0) K/mm3 RBC 4.74 (4.2-5.4) M/mm3 Hgb 13.6 (12.0-15.0) g/dL Hct 41.3 (37.0-47.0) % MCV 87.1 (80-100) fl MCH 28.7 (26-34) pg MCHC 32.9 (32-36) g/dl RDW 12.7 (11.5-14.5) % Plt Count 309 (150-375) k/mm3 MPV 9.4 (7.4-10.4) fl Immature Gran % (Auto) 0.2 (0-0.5) % Neut % (Auto) 54.6 (45.5-73.1) % Lymph % (A
[2020-12-17] MEDS: DICYCLOMINE HCL INJ 20 MG/2 ML VIAL IM (13:06)
[2020-12-17] MEDS: SIMETHICONE 125 MG CHEW TAB PO (13:06)
[2020-12-17 13:30] VITALS: BP 131/87; PULSE 70; RESP 14; O2SAT 99
[2020-12-17 14:01] VITALS: BP 122/78; PULSE 78; RESP 18; O2SAT 99
== END 2020-12-17 14:03 | disposition home or self-care (01) ==
PROVIDERS: Emergency Provider Emergency Medicine; PCP Internal Medicine
DX: K57.32 Diverticulitis of large intestine without perforation or abscess without bleeding (principal); Z87.442 Personal history of urinary calculi; Z87.891 Personal history of nicotine dependence
CPT/HCPCS: 36415; 74177; 80053; 81001; 81025; 83690; 85025; 96361; 96372; 96374; 99284; A9270; J0500; J2270; J7030; L0140; Q9967

== ENCOUNTER 2021-04-25 10:01 | Observation (INO) | payer OTHER, SELFPAY ==
--- NOTE | ~2021-04-25 | XR_ITS ---
XR abdomen/kub 1V DATE: 04/26/2021 05:59 INDICATION: Right ureteral stone TECHNIQUE: Portable supine AP view COMPARISON: 04/25/[address] abdomen pelvis 03/24/2019 KUB FINDINGS: The 6 mm calcified calculus overlies the distal right ureter or right ureterovesical juncti on. This was previously is situated in the lower pole the right kidney on 03/24/2019. No other urinary tract calcifications are evident. Surgical clips, right upper quadrant, consistent with cholecystectomy. Surgical clips overlie the right lower quadrant. The bowel gas pattern is unremarkable, without evidence of obstruction. IMPRESSION: 6 mm calcified distal right ureteral calculus Reviewed, dictated and finalized at [facility]. Reviewed, dictated and finalized at location A.
--- NOTE | ~2021-04-25 | XR_ITS ---
EXAMINATION: XR retrograde pyelo w/stent RT DATE: 04/26/2021 13:51 INDICATION: Right ureteral stone extraction TECHNIQUE: A fluoroscopic images of the abdomen and pelvis were obtained during procedure performed oh Lopez. Radiologist was not present for the imaging or procedure. The amount of fluoroscopy samantha e used during this procedure was 0.6 minutes. COMPARISON: KUB dated 04/26/2021 FINDINGS: 1. Right internal ureteral stent with loops formed at the expected location of the right renal pelvis and in the bladder. The previously seen distal right ureteral stone is no longer visualized and has likely been extracted. Cholecystectomy clips in right upper quadrant with likely dropped clip in the left hemipelvis. A few additional surgical clips in the right hemipelvis likely related to prior appe ndectomy. IMPRESSION: 1. Right internal ureteral stent placement in expected position with extraction of the prior distal r ight ureteral stone. Reviewed, dictated and finalized at location A. IMPRESSION: 1. Right internal ureteral stent placement in expected position with extraction of the prior distal right ureteral stone.
--- NOTE | ~2021-04-25 | CT_ITS ---
EXAMINATION: CT abdomen pelvis wo con DATE: 04/25/2021 14:59 INDICATION: Right flank pain. TECHNIQUE: Computed tomography (CT) of the abdomen and pelvis was performed without intravenous contr ast. Automated exposure control and iterative reconstruction technique were employed. The dose-length product was 209.68 mGy-cm. COMPARISON: CT abdomen and pelvis 12/17/2020 FINDINGS: The visualized portions of the lung bases demonstrate minimal atelectasis. No pleural effus ion. The heart size is normal. No pericardial effusion. The liver is normal. There are changes of cho lecystectomy. There is a 2.2 cm cyst in the spleen, increased from 1.0 cm on 12/17/2020. The pancreas, adrenal glands, and left kidney are normal. There is moderate right hydronephrosis and hydroureter. T here is a 6 mm stone in distal right ureter. There is an anastomosis in the rectosigmoid. There are c hanges of appendectomy. There are no pathologically enlarged lymph nodes. There is no free intraperit duque fluid. There is mild lumbar spondylosis. IMPRESSION: 1. 6 mm stone in distal right ureter with moderate right hydronephrosis and hydroureter. Reviewed, dictated and finalized at location A. IMPRESSION: 1. 6 mm stone in distal right ureter with moderate right hydronephrosis and hyd roureter.
[2021-04-25 11:22] VITALS: BP 144/86; PULSE 71; RESP 18; TEMP 36.7; O2SAT 100
[2021-04-25 12:26] LABS: Basophils Absolute Auto 0.1 K/mm3 (0.0-0.1); Basophils Percent Auto 0.7 % (0.2-1.2); Eosinophils Percent Auto 0.3 % (0-4.4); Hematocrit 46.1 % (37.0-47.0); Hemoglobin 14.7 g/dL (12.0-15.0); Immature Granulocyte Absolute 0.04 K/mm3 (0.00-0.031); Immature Granulocyte Percent A 0.3 % (0-0.5); Lymphocytes Absolute Auto 1.47 K/mm3 (0.9-3.2); Lymphocytes Percent Auto 12.7 % (18.3-44.2); Mean Corpuscular HGB Conc 31.9 g/dl (32-36); Mean Corpuscular Hemoglobin 28.5 pg (26-34); Mean Corpuscular Volume 89.3 fl (80-100); Mean Platelet Volume 9.2 fl (7.4-10.4); Monocytes Absolute Auto 0.5 K/mm3 (0.1-0.6); Monocytes Percent Auto 3.9 % (2.6-8.5); Neutrophils Absolute Auto 9.5 K/mm3 (1.3-6.7); Neutrophils Percent Auto 82.1 % (45.5-73.1); Platelet Count Result 379 k/mm3 (150-375); Red Blood Count 5.16 M/mm3 (4.2-5.4); Red Cell Distribution Width 13.1 % (11.5-14.5); White Blood Count 11.6 K/mm3 (4.5-10.0)
[2021-04-25 12:40] LABS: Alanine Aminotransferase 33 U/L (4-35); Alkaline Phosphatase 158 U/L (38-126); Anion Gap 13 mmol/L (8-16); Aspartate Amino Transferase 41 U/L (14-36); Bilirubin,Total 0.5 mg/dL (0.2-1.3); Blood Urea Nitrogen 17 mg/dL (7-17); Calcium 10.5 mg/dL (8.4-10.2); Carbon Dioxide 22 mmol/L (22-30); Chloride 106 mmol/L (98-107); Estimated CRCL calculation 67 ml/min; Estimated Glomerular Filt Rate > 60; Glucose 115 mg/dL (65-110); Lipase 195 U/L (23-300); Sodium 141 mmol/L (137-145)
[2021-04-25 13:24] VITALS: BP 153/83; PULSE 72; TEMP 36.8; O2SAT 98
[2021-04-25 14:34] VITALS: BP 147/94; PULSE 66; RESP 19; O2SAT 96
[2021-04-25 14:46] LABS: Add Urine Microscopic? YES; Appearance Urine Cloudy (Clear); Bilirubin Urine Negative (Negative); Blood Urine 3+ (Negative); Color Urine Yellow (Yellow); Glucose Urine UA Negative (Negative); Ketones Urine 2+ mg/dL (Negative); Leukocyte Esterase Ur Negative LEU/UL (Negative); Nitrate Urine Negative (Negative); Protein Urine 1+ mg/dL (Negative); RBC Urine 0-2 /hpf (0-2); Specific Grav Ur 1.023 (1.001-1.035); Urobilinogen Urine Negative mg/dL (<2.0); WBC Urine 0-3 /hpf
[2021-04-25] MEDS: fentaNYL CITRATE INJ (*CRX) 100 MCG/2 ML VIAL 50 MCG IV PUSH (15:08)
[2021-04-25] MEDS: ONDANSETRON INJ 4 MG/2 ML VIAL IV PUSH ×2 (15:08→22:37)
[2021-04-25] MEDS: SODIUM CHLORIDE 0.9% IV 1,000 ML 999 ML IV CONT (15:08)
--- NOTE | 2021-04-25 15:31 | ED.ABDPAIN ---
HPI - Abdominal Pain General Chief Complaint: Abdominal Pain Stated Complaint: right lower abd pain Time Seen by Provider: 04/25/21 14:28 History of Present Illness HPI narrative: Patient does with right flank pain which started today. Pain when she woke up and had this pain. Pain has been getting progressively worse throughout the day so she wanted to come in for evaluation. Pain is crampy/achy/sharp. There are no clear aggravating or alleviating factors. Radiates from her back down to her groin. Reports he has sensation of needing to urinate but is unable to do so. She denies any diarrhea or constipation. She denies any dysuria. She denies any fevers. Reports nausea but no vomiting Related Data Allergies Allergy/AdvReac Type Severity Reaction Status Date / Time No Known Allergies Allergy Verified 11/26/20 13:57 Review of Systems Review of Systems: CONSTITUTIONAL: Denies fever, chills, or sweats. EYES: Denies visual changes, redness, or discharge. ENT: Denies rhinorrhea, congestion, sore throat, or otalgia. CARDIOVASCULAR: Denies chest pain, palpitations, or edema. RESPIRATORY: Denies cough or dyspnea. GASTROINTESTINAL: Denies vomiting, or diarrhea. GENITOURINARY: Denies dysuria or hematuria. SKIN: Denies rash or itching. MUSCULOSKELETAL: Denies back pain, joint pain, or myalgia. NEUROLOGIC: Denies headache, numbness, dizziness, or weakness. PSYCHIATRIC: Denies anxiety or depression. All systems reviewed & are unremarkable except as noted in HPI and below PMFSH Past Medical History Medical History Acute diverticulitis History of renal calculi Nephrolithiasis Overweight (BMI 25.0-29.9) Right ureteral stone Family History Family History Other Carcinoma of colon Other Diabetes mellitus Grandparent Heart attack Other Family history of coronary artery disease Social History Social History Smoking status: Former smoker Alcohol intake: current Drinks per week: 5 Substance use: never Spiritual care concerns: No Exam Narrative: GENERAL: Well-appearing, well-nourished, and in mild distress due to pain HEAD: Normocephalic, atraumatic. EYES: PERRLA and EOMI. ENT: Nares clear, no rhinorrhea or epistaxis. Mucous membranes moist. NECK: Supple. No masses. No JVD CHEST: Clear to auscultation. No respiratory distress. No wheezes rales or rhonchi HEART: Regular rate and rhythm. No murmur heard. Normal peripheral pulses. ABDOMEN: Soft, nontender, nondistended, unable to reproduce pain on exam BACK: No CVA EXTREMITIES: Normal range of motion. No edema. SKIN: Warm, dry, no rash. NEURO: No focal deficits. Alert and oriented x3. PSYCH: Normal mood and affect. Course Consultations Consultation #1: requesting urology consultation for 6mm stone Date: 04/25/21 Time: 15:31 Vital Signs Vital signs: Vital Signs Temperature 36.7 C 04/25/21 11:22 Pulse Rate 71 04/25/21 11:22 Respiratory Rate 18 04/25/21 11:22 Blood Pressure 144/86 H 04/25/21 11:22 Pulse Oximetry 100 04/25/21 11:22 Temperature 37.3 C 04/25/21 18:54 Pulse Rate 78 04/25/21 18:54 Respiratory Rate 18 04/25/21 18:54 Blood Pressure 149/92 H 04/25/21 18:54 Pulse Oximetry 100 04/25/21 18:54 MDM - Abdominal Pain MDM Narrative Medical decision making narrative: Patient returns with right flank pain. Patient looked in mild distress due to pain. Vital signs reassuring labs and imaging obtained work-up was notable for a 6 mm stone. Pain was controlled in the ER urology was consulted who will admit for further management. Patient was comfortable with the admission plan. Low concern for infected stone or ELLIE. Lab Data Result diagrams: 04/25/21 12:10 04/25/21 12:10 Labs: Lab Results 04/25/21 04/25/21 04/25/21 Range/Units 12:10 1
[2021-04-25] MEDS: HYDROmorphone HCL INJ (*CRX) 1 MG/ML SYR 0.5 MG IV PUSH (16:18)
--- NOTE | 2021-04-25 16:40 | PM.IMHP ---
H&P: HPI History of Present Illness Date/Time: 04/25/21 16:41 Pleasant young woman without a history of urolithiasis in the past who presents to the ER with acute right flank pain radiating into her right lower quadrant. She says this has been associated with nausea without vomiting and irritable voiding. She has had no fevers chills or gross hematuria. CT imaging reveals an obstructing 6 mm right ureteral stone at her right ureterovesical junction. She is being admitted for pain control and hydration. She tells to pass the stone we have discussed options including ESWL in endoscopic extraction. We will be prepared for ureteroscopy with stone extraction in the morning if she continues to have pain in the stone has failed to pass. she is aware this may require laser lithotripsy and possibly ureteral stent placement. Is risks include, limited to adverse cardiopulmonary events, ureteral injury and retained stone fragments. Chief Complaint: Right flank and right lower quadrant abdominal pain Review of Systems Cardiovascular: Cardiovascular: Denies chest pain, Denies lightheadedness, Denies palpitations and Denies dyspnea Respiratory: Respiratory: Denies dyspnea Gastrointestinal: Gastrointestinal: Denies diarrhea, Denies nausea and Denies vomiting Genitourinary: Genitourinary: Denies hematuria and Denies dysuria Endocrine: Endocrine: Denies palpitations PMFSH Past Medical History Medical History Acute diverticulitis Nephrolithiasis Surgical History Surgical History No pertinent past surgical history Family History Family History Other Carcinoma of colon Other Diabetes mellitus Grandparent Heart attack Other Family history of coronary artery disease Social History Social History Smoking status: Former smoker Alcohol intake: current Drinks per week: 5 Substance use: never Spiritual care concerns: No Meds Home Medications and Allergies Home Medications Medication Instructions Recorded Confirmed Type hydrocodone-acetaminophen 1 tablet PO Q6H PRN #10 tablet 12/17/20 Rx Allergies Allergy/AdvReac Type Severity Reaction Status Date / Time No Known Allergies Allergy Verified 11/26/20 13:57 Vital Signs Vital Signs - 24 hr 04/25/21 11:22 04/25/21 13:24 04/25/21 14:34 Temperature 98.1 F 98.2 F Pulse Rate 71 72 66 Respiratory Rate 18 19 Blood Pressure 144/86 H 153/83 H 147/94 H Pulse Oximetry 100 98 96 Exam Const: General: no acute distress Resp: Effort & Inspection: normal respiratory effort GI: Inspection: non-distended GI Palp: No abdominal tenderness and No Guarding due to palpation present (GI) Auscultation: normal bowel sounds H&P: Results Labs Labs: Short CBC 04/25/21 Range/Units 12:10 WBC 11.6 H (4.5-10.0) K/mm3 Hgb 14.7 (12.0-15.0) g/dL Hct 46.1 (37.0-47.0) % Plt Count 379 H (150-375) k/mm3 BMP 04/25/21 12:10 Sodium 141 Potassium 4.0 Chloride 106 Carbon Dioxide 22 BUN 17 Creatinine 0.80 Glucose 115 H Calcium 10.5 H Liver Function 04/25/21 Range/Units 12:10 Total Bilirubin 0.5 (0.2-1.3) mg/dL AST 41 H (14-36) U/L ALT 33 (4-35) U/L Alkaline Phosphatase 158 H (38-126) U/L Albumin 5.0 (3.5-5.1) g/dL Urine 04/25/21 Range/Units 14:26 Urine Color Yellow (Yellow) Urine Appearance Cloudy H (Clear) Urine pH 5.0 (5.0-9.0) Ur Specific [place] 1.023 (1.001-1.035) Urine Protein 1+ H (Negative) mg/dL Urine Glucose (UA) Negative (Negative) mg/dL Assessment and Plan Assessment and plan (1) Right ureteral stone: Code(s): N20.1 - Calculus of ureter Status: Acute Assessment and Plan: Pain management and hydration overnig
--- NOTE | 2021-04-25 16:56 | WPDANESEPP ---
Anes - Eval Pre Procedure Procedure: Operation Date: 04/25/21 12:30 Proposed Procedures p Cystoscopy, Right Ureteroscopy, Right Stone Extraction, Possible Stent Placement, Possible Holmium Laser Procedure(Right) - Hood Lopez MD Date/Time: 04/25/21 16:56 Pre Op Diagnosis: right lower abd pain Patient Data Age: 40 Gender: F Height: 1.6 m Weight: 65 kg Last Vital Signs Temp 98.2 F 04/25/21 13:24 Pulse 66 04/25/21 14:34 Resp 19 04/25/21 14:34 BP 147/94 H 04/25/21 14:34 Pulse Ox 96 04/25/21 14:34 Allergies Allergy/AdvReac Type Severity Reaction Status Date / Time No Known Allergies Allergy Verified 11/26/20 13:57 Home Medications Medication Instructions Recorded Confirmed Type hydrocodone-acetaminophen 1 tablet PO Q6H PRN #10 tablet 12/17/20 Rx Laboratory Tests 04/25/21 04/25/21 04/25/21 12:10 12:10 14:26 WBC 11.6 K/mm3 H K/mm3 (4.5-10.0) RBC 5.16 M/mm3 M/mm3 (4.2-5.4) Hgb 14.7 g/dL g/dL (12.0-15.0) Hct 46.1 % % (37.0-47.0) MCV 89.3 fl fl (80-100) MCH 28.5 pg pg (26-34) MCHC 31.9 g/dl L g/dl (32-36) RDW 13.1 % % (11.5-14.5) Plt Count 379 k/mm3 H k/mm3 (150-375) MPV 9.2 fl fl (7.4-10.4) Immature Gran % (Auto) 0.3 % % (0-0.5) Neut % (Auto) 82.1 % H % (45.5-73.1) Lymph % (Auto) 12.7 % L % (18.3-44.2) Woodruff % (Auto) 3.9 % % (2.6-8.5) Eos % (Auto) 0.3 % % (0-4.4) Baso % (Auto) 0.7 % % (0.2-1.2) Lymph # (Auto) 1.47 K/mm3 K/mm3 (0.9-3.2) Woodruff # (Auto) 0.5 K/mm3 K/mm3 (0.1-0.6) Eos # (Auto) 0.0 K/mm3 K/mm3 (0-0.3) Baso # (Auto) 0.1 K/mm3 K/mm3 (0.0-0.1) Abs Immat Gran (auto) 0.04 K/mm3 H K/mm3 (0.00-0.031) Absolute Neuts (auto) 9.5 K/mm3 H K/mm3 (1.3-6.7) Absolute Nucleated RBC 0.0 K/mm3 K/mm3 (0.0-0.012) Nucleated RBC % 0.0 % % (0.0-0.2) Sodium 141 mmol/L mmol/L (137-145) Potassium 4.0 mmol/L mmol/L (3.4-5.0) Chloride 106 mmol/L mmol/L (98-107) Carbon Dioxide 22 mmol/L mmol/L (22-30) Anion Gap 13 mmol/L mmol/L (8-16) BUN 17 mg/dL mg/dL (7-17) Creatinine 0.80 mg/dL mg/dL (0.7-1.0) Estim Creat Clear Calc 67 ml/min ml/min Estimated GFR > 60 (59 - ) Glucose 115 mg/dL H mg/dL (65-110) Calcium 10.5 mg/dL H mg/dL (8.4-10.2) Total Bilirubin 0.5 mg/dL mg/dL (0.2-1.3) AST 41 U/L H U/L (14-36) ALT 33 U/L U/L (4-35) Alkaline Phosphatase 158 U/L H U/L (38-126) Total Protein 9.0 g/dL H g/dL (6.3-8.2) Albumin 5.0 g/dL g/dL (3.5-5.1) Lipase 195 U/L U/L (23-300) Urine Color Yellow (Yellow) Urine Appearance Cloudy H (Clear) Urine pH 5.0 (5.0-9.0) Ur Specific [place] 1.023 (1.001-1.035) Urine Protein 1+ mg/dL H mg/dL (Negative) Urine Glucose (UA) Negative mg/dL mg/dL (Negative) Urine Ketones 2+ mg/dL H mg/dL (Negative) Ur Blood (Man) 3+ H (Negative) Urine Nitrate Negative (Negative) Urine Bilirubin Negative (Negative) Urine Urobilinogen Negative mg/dL mg/dL (<2.0) Leukocyte Esterase Rfl Negative YESSI/UL YESSI/UL (Negative) Urine RBC 0-2 /hpf /hpf (0-2) Urine WBC 0-3 /hpf /hpf Patient hx anesthesia problems: none Family hx anesthesia problems: none PMFSH Past Medical History Medical History Acute diverticulitis History of renal calculi Nephrolithiasis Overweight (BMI 25.0-29.9) Right ureteral stone Family History Family History
[2021-04-25 17:41] VITALS: BP 153/93; PULSE 75; RESP 18; O2SAT 98
[2021-04-25] MEDS: HYDROmorphone HCL INJ (*CRX) 1 MG/ML SYR IV PUSH ×3 (18:06→22:42)
[2021-04-25 18:54] VITALS: BP 149/92; PULSE 78; RESP 18; TEMP 37.3; O2SAT 100
[2021-04-25 22:00] VITALS: BP 140/90; PULSE 71; RESP 118; TEMP 36.2; O2SAT 100; BMI 26.2
[2021-04-25 22:13] VITALS: BMI 27.0
--- NOTE | 2021-04-25 22:16 | PC.NURSE ---
This patient, Sara Aviles, was admitted to [facility] Surg Room 315-02. Patient/family oriented to hospital policies and general routines including ID bracelet, bed and alarms, visiting hours, pain management, procedures, bathroom and other care routines, personal items, smoking policy, room service/diet, and visiting hours. Information on how to activate the Rapid Response Team has been discussed. Patient/Family are encouraged to report perceived risks to care and to ask questions if they do not understand what they are told or what they should do.
[2021-04-25] MEDS: LACTATED RINGERS 1,000 ML 125 ML IV CONT (22:45)
[2021-04-26] VITALS (9 sets, daily range): BP systolic 112–143; BP diastolic 70–92; PULSE 69–82; RESP 10–18; TEMP 35.8–36.9; O2SAT 94–100
[2021-04-26] MEDS: HYDROmorphone HCL INJ (*CRX) 1 MG/ML SYR IV PUSH ×4 (03:38→11:46)
[2021-04-26] MEDS: ONDANSETRON INJ 4 MG/2 ML VIAL IV PUSH ×2 (06:02→09:55)
[2021-04-26] MEDS: LACTATED RINGERS 1,000 ML 125 ML IV CONT (06:54)
--- NOTE | 2021-04-26 09:59 | WPDHPUPDATE1 ---
History and Physical Update Update Date/Time: 04/26/21 09:59 History and Physical has been reviewed, including an updated exam of the patient. There are NO changes in the patient's condition. Risks, benefits, and alternatives have been discussed and questions answered. Patient agrees to proceed with procedure.
--- NOTE | 2021-04-26 11:30 | PC.NURSE ---
To OR per stretcher. Report given to Trudy GARCES.
--- NOTE | 2021-04-26 12:29 | WPDANESEFPP ---
Anes - Eval Final PreProcedure Day of Procedure 04/26/21 12:29 Patient weight: overweight Heart: regular rate and rhythm Lungs: clear to auscultation Airway: Mallampati scale class II Neurological: alert and oriented Last oral intake: >/= 8 hours ASA classification: II Emergent: no Anesthetic plan: proceed Anesthesia type and monitoring: general LMA and standard monitoring Informed Consent: The patient's anesthetic plan and its attendant risks and benefits were discussed with the patient/family/POA. Questions were solicited and answers provided to the satisfaction of the patient/family/POA.
[2021-04-26] MEDS: ceFAZolin 2 GM/D5W 50 ML 2 GM/50 ML BAG IVPB (13:06)
--- NOTE | 2021-04-26 13:37 | P.OP_ITS ---
Procedure Note - Detailed Date of Procedure 04/26/21 Pre-op Diagnosis Right Ureteral Stone Post-op Diagnosis same Procedure Performed Cystoscopy, right ureteroscopy with stone extraction, right ureteral stent placement Surgeon Hood Lopez MD Description of Procedure The patient was brought to the operative suite where she is prepped and draped in a routine sterile fashion while in the dorsal lithotomy position after the uneventful induction of a general LMA anesthetic. A 19F rigid cystoscope was placed in the bladder. The patient had no evidence of urethral stricture or bladder neck contracture. The bladder mucosa was endoscopically normal without hyperemia or neoplasm. There was a single, orthotopic ureteral orifice bi laterally. A 0.035 glidewire was advanced into the right renal pelvis under fluoroscopy. The distal ureter was dilated with an 8F/10F ureteral dilator. Ureteroscopy was undertaken with a short tapered semi-rigid ureteroscope. There was significant ureteral edema and, because of that, the size of the stone and the extent of manipulation, I opted to redilate with a 10cm ureteral balloon. Upon repeat ureteroscopy I was able to extract the stone using a 1.9F Escape, Nitinol, disposable stone basket. Due to the extent of this manipulation I did place a 4.8F double-J ureteral stent. The proximal coil of the stent was confirmed to be in the renal pelvis and the distal coil in the bladder. The patient's bladder was emptied and she was taken to the recovery room having tolerated this procedure well. Drains Yes Packing No Pathology yes Complications No immediate complications Condition stable Disposition PACU
[2021-04-26] MEDS: LACTATED RINGERS 1,000 ML 30 ML IV CONT ×2 (13:45→14:02)
--- NOTE | 2021-04-26 14:40 | SUR.PHASEI ---
1430 sbar faxed floor notified
--- NOTE | 2021-04-26 15:10 | PC.NURSE ---
Back from OR via stretcher.
--- NOTE | 2021-04-30 15:15 | PM.DS ---
DS: Admitting Diagnosis Admitting Diagnosis Ureteral stone DS: Discharge Diagnosis Discharge Diagnosis (1) Right ureteral stone: Code(s): N20.1 - Calculus of ureter Status: Acute DS: Summary Hospital Course Hospital Course: Patient admitted through your late when afternoon with a painful distal ureteral calculus could could not be managed as an outpatient. The following morning she underwent endoscopic extraction with stent placement. She was discharged later that day tolerate a diet and activity. Time Spent with Patient Time attestation: Total time spent providing and/or coordinating discharge services: 15min Exam Const: General: no acute distress Resp: Effort & Inspection: normal respiratory effort GI: Inspection: non-distended GI Palp: No abdominal tenderness and No Guarding due to palpation present (GI) Auscultation: normal bowel sounds DS: Data Data Completed and Pending Completed studies during hospitalization: Pending at discharge 04/26/21 13:37 Surgical [PTH] Routine Discharge Plan Discharge Attending physician on discharge: Hood Lopez Consulting providers: Dipesh Em ; Andrey Palmer ; Clark Romo V. Discharging Clinician: Hood Lopez Anticipated Discharge Date/Time: 04/26/21 15:30 Patient Disposition: Home, Self-Care Activity: other - see discharge instructions Diet: as tolerated and other - see discharge instructions Discharge Instructions: 1) No lifting/straining >15lbs. x3 weeks. 2) No driving x1-week. 3) Resume normal, pre-operative diet. 4) My office will contact regarding follow-up in 1-week with cystogram. Patient Instructions: Antibiotic Form, Kidney Stones (DC), Cystoscopy (DC), Ureteral Stent Placement (DC) Stand Alone Forms: General Discharge Information Follow-up/Referrals: Hood Lopez MD [Physician] - 1 Week (F/U: 5-10 days for stent removal) Discharge Medications: New hydrocodone-acetaminophen 5-325 mg tablet 1 - 2 tablet PO Q6H PRN (Reason: pain) Qty: 20 RF: 0 cephalexin 500 mg capsule 500 mg PO Q8H Qty: 9 RF: 0 Continued hydrocodone-acetaminophen 5-325 mg tablet 1 tablet PO Q6H PRN (Reason: pain) Qty: 10 RF: 0 Date of admission: 04/25/21 16:27 Primary Care Provider: Sol,Dipesh Goodman Admitting Provider: Hood Lopez Attending physician on admission: Hood Lopez Condition: Stable
== END 2021-04-26 17:35 | disposition home or self-care (01) ==
LOC: ANHED 14:28 → ANH3MEDSUR 19:07
PROVIDERS: Emergency Medicine; Admitting Provider Urology; Emergency Provider Emergency Medicine; PCP Internal Medicine; Visit Provider Urology
PROC: (CPT 52352; principal; 2021-04-26 12:30)
DX: N13.2 Hydronephrosis with renal and ureteral calculous obstruction (principal); Z87.891 Personal history of nicotine dependence
CPT/HCPCS: 52332; 52352; 36415; 74018; 74176; 74420; 80053; 81001; 82365; 83690; 85025; 88300; 96361; 96374; 96375; 96376; 99285; A9270; C1726; C1769; C2617; G0378; J0690; J1100; J1170; J2250; J2405; J2704; J3010; J7030; J7120; Q9966

== ENCOUNTER 2021-07-10 08:48 | Outpatient (CLI) | payer OTHER, SELFPAY ==
--- NOTE | 2021-07-10 | ECG_ITS ---
Measurements Intervals [place] Rate: 61 P: 58 VT: 174 QRS: 25 QRSD: 84 T: 38 QT: 384 QTc: 390 Interpretive Statements SINUS RHYTHM POSSIBLE LEFT ATRIAL ENLARGEMENT BASELINE WANDER- V4 BORDERLINE ECG Electronically Signed On 07-10-2021 10:01:21 CDT by Braulio Johnston D.O.
--- NOTE | ~2021-07-10 | XR_ITS ---
EXAMINATION: XR chest 2V DATE: 07/10/2021 09:56 INDICATION: Dyspnea on exertion TECHNIQUE: PA and lateral views of the chest are obtained. COMPARISON: 04/13/2019 FINDINGS: The lungs are free of acute opacities. There is no pleural effusion or pneumothorax. The ca rdiomediastinal silhouette is normal. There is mild thoracic spondylosis. Surgical clips in the right upper quadrant are likely from prior cholecystectomy. IMPRESSION: 1. No acute cardiopulmonary abnormality. Reviewed, dictated and finalized at location A.
[2021-07-10 09:11] LABS: Hematocrit 44.8 % (37.0-47.0); Hemoglobin 13.9 g/dL (12.0-15.0); Mean Corpuscular Hemoglobin 29.4 pg (26-34); Mean Corpuscular Volume 94.9 fl (80-100); Mean Platelet Volume 9.4 fl (7.4-10.4); Platelet Count Result 278 k/mm3 (150-375); Red Blood Count 4.72 M/mm3 (4.2-5.4); Red Cell Distribution Width 12.9 % (11.5-14.5); White Blood Count 5.9 K/mm3 (4.5-10.0)
[2021-07-10 09:21] LABS: INR 0.8; Prothrombin Time 11.4 Seconds (11.1-14.7)
[2021-07-10 09:22] LABS: Partial Thromboplastin Time 25.7 SECONDS (22.3-36.8)
[2021-07-10 09:26] LABS: Alanine Aminotransferase 28 U/L (4-35); Albumin Level 4.9 g/dL (3.5-5.1); Alkaline Phosphatase 134 U/L (38-126); Anion Gap 10 mmol/L (8-16); Aspartate Amino Transferase 36 U/L (14-36); Bilirubin,Total 0.5 mg/dL (0.2-1.3); Blood Urea Nitrogen 14 mg/dL (7-17); Carbon Dioxide 29 mmol/L (22-30); Chloride 103 mmol/L (98-107); Estimated Glomerular Filt Rate > 60; Glucose 119 mg/dL (65-110); Potassium 4.7 mmol/L (3.4-5.0); Sodium 142 mmol/L (137-145)
== END 2021-07-10 08:49 | disposition home or self-care (01) ==
LOC: ANHLAB 08:52
PROVIDERS: PCP Internal Medicine
DX: R06.09 Other forms of dyspnea (principal); Z01.818 Encounter for other preprocedural examination; R94.31 Abnormal electrocardiogram [ECG] [EKG]
CPT/HCPCS: 36415; 71046; 80053; 85027; 85610; 85730; 93005

== ENCOUNTER 2022-06-16 08:27 | Emergency (ER) | payer OTHER, SELFPAY ==
[2022-06-16] VITALS (21 sets, daily range): BP systolic 118–151; BP diastolic 80–99; PULSE 67–91; RESP 11–22; TEMP 36.4; O2SAT 100
--- NOTE | ~2022-06-16 | CT_ITS ---
EXAMINATION: CTA chest PE protocol DATE: 06/16/2022 09:36 INDICATION: Chest pain. Shortness of breath. TECHNIQUE: Computed tomography angiography (CTA) of the chest was performed with 100 mL Omnipaque-350 intravenous contrast timed to evaluate the pulmonary arteries. Coronal maximum intensity projection 3D-reconstructions were created by the technologist. Automated exposure control and iterative reconst ruction technique were employed. The dose-length product was 194.55 mGy-cm. COMPARISON: CT abdomen and pelvis 04/25/2021 FINDINGS: There is mild scarring at the lung apices. There is mild atelectasis bilaterally. No pleura l effusion. The heart size is normal. No pericardial effusion. There is no pulmonary embolus. There a re changes of cholecystectomy. There is developmental anterior and posterior fusion at T6-T7. IMPRESSION: 1. No pulmonary embolus. Reviewed, dictated and finalized at location B. IMPRESSION: 1. No pulmonary embolus.
--- NOTE | 2022-06-16 08:28 | ECG_ITS ---
Measurements Intervals [place] Rate: 67 P: 54 ME: 170 QRS: 25 QRSD: 77 T: 32 QT: 368 QTc: 389 Interpretive Statements SINUS RHYTHM LOW-VOLTAGE QRS IN PRECORDIAL LEADS BORDERLINE ECG COMPARED TO ECG 07/10/2021 09:26:27 NO SIGNIFICANT CHANGES Electronically Signed On 06-16-2022 15:06:50 CDT by Shree Tolbert M.D.
[2022-06-16 08:58] LABS: Basophils Absolute Auto 0.1 K/mm3 (0.0-0.1); Basophils Percent Auto 1.2 % (0.2-1.2); Eosinophils Absolute Auto 0.1 K/mm3 (0-0.3); Eosinophils Percent Auto 1.6 % (0-4.4); Hematocrit 39.5 % (37.0-47.0); Hemoglobin 13.1 g/dL (12.0-15.0); Immature Granulocyte Absolute 0.01 K/mm3 (0.00-0.031); Immature Granulocyte Percent A 0.2 % (0-0.5); Lymphocytes Absolute Auto 2.21 K/mm3 (0.9-3.2); Lymphocytes Percent Auto 34.5 % (18.3-44.2); Mean Corpuscular HGB Conc 33.2 g/dl (32-36); Mean Corpuscular Hemoglobin 29.4 pg (26-34); Mean Corpuscular Volume 88.8 fl (80-100); Mean Platelet Volume 9.1 fl (7.4-10.4); Monocytes Absolute Auto 0.4 K/mm3 (0.1-0.6); Monocytes Percent Auto 6.4 % (2.6-8.5); Neutrophils Absolute Auto 3.6 K/mm3 (1.3-6.7); Neutrophils Percent Auto 56.1 % (45.5-73.1); Platelet Count Result 317 k/mm3 (150-375); Red Blood Count 4.45 M/mm3 (4.2-5.4); Red Cell Distribution Width 12.3 % (11.5-14.5); White Blood Count 6.4 K/mm3 (4.5-10.0)
[2022-06-16] MEDS: ASPIRIN 81 MG CHEWABLE TABLET 324 MG PO (08:58)
[2022-06-16] MEDS: KETOROLAC 30 MG/ML VIAL (*BKC) IV PUSH (08:59)
[2022-06-16 09:11] LABS: Partial Thromboplastin Time 26.6 SECONDS (22.3-36.8)
[2022-06-16 09:15] LABS: Alanine Aminotransferase 27 U/L (6-35); Albumin Level 4.4 g/dL (3.5-5.1); Alkaline Phosphatase 138 U/L (38-126); Anion Gap 11 mmol/L (8-16); Aspartate Amino Transferase 32 U/L (14-36); Bilirubin,Total 0.6 mg/dL (0.2-1.3); Blood Urea Nitrogen 12 mg/dL (7-17); Calcium 9.1 mg/dL (8.4-10.2); Carbon Dioxide 24 mmol/L (22-30); Chloride 104 mmol/L (98-107); Estimated CRCL calculation 72 ml/min; Estimated Glomerular Filt Rate > 60; Glucose 120 mg/dL (65-110); Lipase 220 U/L (23-300); Potassium 3.3 mmol/L (3.4-5.0); Sodium 139 mmol/L (137-145)
[2022-06-16 09:25] LABS: Troponin I < 0.012 ng/mL (0.000-0.034)
--- NOTE | 2022-06-16 09:57 | ED.CHESTPAIN ---
HPI - Chest Pain General Chief Complaint: Chest Pain Stated Complaint: CP (COVID+ 2 weeks ago) Time Seen by Provider: 06/16/22 08:32 History of Present Illness HPI narrative: Patient is a 41-year-old female who presents to the ER with chest pain and back pain. Ongoing for 2 weeks. Began when she had COVID and she thought it was related but she has since recovered and symptoms persist. Worse with movements and deep breaths. No hemoptysis. No fevers or chills or sweats. No dyspnea. No exertional chest discomfort. Feels improved when laying still. No history of heart disease. Pain is central and pressure nonradiating. Back pain is aching and diffuse. Related Data Allergies Allergy/AdvReac Type Severity Reaction Status Date / Time No Known Allergies Allergy Verified 04/26/21 12:19 Review of Systems Review of Systems: All systems reviewed & are unremarkable except as noted in HPI and below Constitutional: Constitutional: Denies chills, Denies fatigue and Denies fever(s) ENT: Denies nasal congestion and Denies sore throat Cardiovascular: Cardiovascular: Reports chest pain, Denies rapid heart rate and Denies radiating jaw, neck or arm pain Respiratory: Respiratory: Denies cough and Denies dyspnea Gastrointestinal: Gastrointestinal: Denies abdominal pain, Denies nausea and Denies vomiting Genitourinary: Genitourinary: Denies nocturia and Denies dysuria Musculoskeletal: Musculoskeletal: Reports back pain, Denies arthralgias and Denies joint swelling PMF Past Medical History Medical History (Updated 06/16/22 @ 11:22 by Poli Jordan MD) Acute diverticulitis History of renal calculi Nephrolithiasis Overweight (BMI 25.0-29.9) Right ureteral stone Surgical History Surgical History (Updated 06/16/22 @ 09:59 by Poli Jordan MD) History of cholecystectomy History of hysterectomy Family History Family History Other Carcinoma of colon Other Diabetes mellitus Grandparent Heart attack Other Family history of coronary artery disease Social History Social History Smoking status: Never smoker Second hand tobacco smoke exposure: No Alcohol intake: never Drinks per week: 5 Substance use: never Gender identity (if verbalized by the patient): Female Spiritual care concerns: No Exam Narrative: GENERAL: Uncomfortable-appearing, well-nourished, and in no acute distress. HEAD: Normocephalic, atraumatic. EYES: PERRL and EOMI. CHEST: Clear to auscultation. No respiratory distress. Tender palpation over anterior chest wall centrally. HEART: Regular rate and rhythm. Normal peripheral pulses. ABDOMEN: Soft, nontender, nondistended. Back: Paraspinal muscular tenderness of the thoracic spine bilaterally without midline tenderness the T/L-spine EXTREMITIES: Normal range of motion. No edema. SKIN: Warm, dry, no rash. NEURO: Alert and oriented x3. Course Vital Signs Vital signs: Vital Signs Temperature 97.5 F L 06/16/22 08:30 Pulse Rate 91 06/16/22 08:30 Respiratory Rate 18 06/16/22 08:30 Blood Pressure 151/99 H 06/16/22 08:30 Pulse Oximetry 100 06/16/22 08:30 Oxygen Delivery Room Air 06/16/22 08:30 Temperature 97.5 F L 06/16/22 08:30 Pulse Rate 73 06/16/22 10:31 Respiratory Rate 17 06/16/22 10:31 Blood Pressure 124/80 06/16/22 10:31 Pulse Oximetry 100 06/16/22 08:30 Oxygen Delivery Room Air 06/16/22 08:30 MDM - Chest Pain Lab Data Result diagrams: 06/16/22 08:50 06/16/22 08:50 Labs: Lab Results 06/16/22 06/16/22 06/16/22 Range/Units 08:50 08:50 08:50 WBC 6.4 (4.5-10.0) K/mm3 RBC 4.45 (4.2-5.4) M/mm3 Hgb 13.1 (12.0-15.0) g/dL Hct 39.5 (37.0-47.0) % MCV 88.8 (80-100) fl MCH 29.4 (26-34) pg MCHC 33.2 (32-36) g/dl RDW 12.3 (11.5-14.5) % Plt Count
[2022-06-16] MEDS: MORPHINE SULFATE (*CRX) 4 MG/ML INJ IV PUSH (10:46)
== END 2022-06-16 11:41 | disposition home or self-care (01) ==
PROVIDERS: Emergency Provider Emergency Medicine; PCP Internal Medicine
DX: R09.1 Pleurisy (principal); E66.3 Overweight; Z68.25 Body mass index [BMI] 25.0-25.9, adult; Z87.442 Personal history of urinary calculi; Z90.710 Acquired absence of both cervix and uterus; R94.31 Abnormal electrocardiogram [ECG] [EKG]
CPT/HCPCS: 36415; 71275; 80053; 83690; 84484; 85025; 85610; 85730; 93005; 96374; 96375; 99284; A9270; J1885; J2270; Q9967

== ENCOUNTER 2022-06-18 14:14 | Outpatient (CLI) | payer OTHER, SELFPAY ==
--- NOTE | ~2022-06-18 | CT_ITS ---
EXAMINATION: CT abdomen pelvis w con DATE: 06/18/2022 15:27 INDICATION: Generalized abdominal pain. TECHNIQUE: Computed tomography (CT) of the abdomen and pelvis was performed with 100 mL Omnipaque 350 intravenous contrast. Automated exposure control and iterative reconstruction technique were employe d. The dose-length product was 325.31 mGy-cm. COMPARISON: CT abdomen and pelvis 04/25/2021 FINDINGS: The visualized portions of the lung bases demonstrate mild atelectasis. No pleural effusion . The heart size is normal. No pericardial effusion. The liver is normal. There is a 4 mm cyst in the spleen. There are changes of cholecystectomy. The pancreas, adrenal glands, and kidneys are normal. There is an anastomosis in the rectosigmoid. There is diverticulosis of the colon without evidence of diverticulitis. There are changes of appendectomy. There is diastases of the rectus abdominis muscle s. There are no pathologically enlarged lymph nodes. There is no free intraperitoneal fluid. There is mild lumbar spondylosis. IMPRESSION: 1. No specific etiology for the patient's symptoms. Reviewed, dictated and finalized at location A.
== END 2022-06-18 14:15 | disposition home or self-care (01) ==
PROVIDERS: PCP Internal Medicine
DX: R10.84 Generalized abdominal pain (principal)
CPT/HCPCS: 74177; Q9967

== ENCOUNTER 2022-09-14 16:27 | Inpatient (IN) | payer OTHER, SELFPAY ==
[2022-09-14] VITALS (13 sets, daily range): BP systolic 125–132; BP diastolic 79–90; PULSE 79–100; RESP 18; TEMP 36.4–36.8; O2SAT 94–100
--- NOTE | ~2022-09-14 | XR_ITS ---
UGI-AIR CONTRAST/SMALL BOWEL INDICATION: Partial obstruction of small bowel. TECHNIQUE: Serial images of the upper GI tract structures and small bowel are performed following ora l administration of barium using double contrast technique. COMPARISON: KUB dated 09/19/2022 FINDINGS: Barium flowed readily through the esophagus without evidence of hernia or reflux. Gastric contour, mucosa and motility are normal. The duodenal bulb fills and empties regularly and has a nor mal mucosal pattern. The duodenal sweep is in normal position. The mucosal pattern of the small bow el is unremarkable with normal transit time to the colon. IMPRESSION: 1: Normal upper GI/small bowel series. Reviewed, dictated and finalized at location A. SPECIALIST
--- NOTE | ~2022-09-14 | XR_ITS ---
EXAMINATION: XR abdomen NG/feed tube insert DATE: 09/15/2022 01:15 INDICATION: Nasogastric tube placement. TECHNIQUE: An upright view of the abdomen was obtained. COMPARISON: CT abdomen and pelvis 09/14/2022 FINDINGS: The lower abdomen is excluded. There are no dilated loops of bowel. Surgical clips in the r ight upper quadrant are likely from cholecystectomy. The nasogastric tube tip is in the stomach. IMPRESSION: 1. Nasogastric tube tip in the stomach. Reviewed, dictated and finalized at location A. UP MECH[employer]IC COATING MACHINES
--- NOTE | ~2022-09-14 | XR_ITS ---
XR abdomen/kub 1V 09/19/2022 17:35 INDICATION: Abnormal distention TECHNIQUE: KUB COMPARISON: 09/18/2022 FINDINGS: Bowel gas pattern is normal. There is residual contrast in the colon. There are surgical cl ips in the pelvis. There is no evidence of free air, mass, organomegaly, ascites or obstruction. No abnormal calculi are seen. The bones appear intact. IMPRESSION: 1: No acute abdominal abnormality identified. Reviewed, dictated and finalized at location A. E REPAIRER
--- NOTE | ~2022-09-14 | XR_ITS ---
Supine and upright views of the abdomen Clinical history: Small bowel obstruction Findings: Bowel gas pattern is nonspecific, with NG tube in place. No evidence for obstruction or lulu e air. No abnormal mass lesion or calcification is seen. Osseous structures are intact. Impression: NG tube in place. Nonspecific bowel gas pattern. Reviewed, dictated and finalized at [facility]. ATE BRANCH EXCHANGE OPERATOR Impression: NG tube in place. Nonspecific bowel gas pattern.
--- NOTE | ~2022-09-14 | CT_ITS ---
EXAMINATION: CT abdomen pelvis w con DATE: 09/14/2022 21:47 INDICATION: Generalized abdominal pain. TECHNIQUE: Computed tomography (CT) of the abdomen and pelvis was performed with 100 mL Omnipaque 350 intravenous contrast. Automated exposure control and iterative reconstruction technique were employe d. The dose-length product was 310.16 mGy-cm. COMPARISON: CT abdomen and pelvis 06/18/2022 FINDINGS: The visualized portions of the lung bases demonstrate mild dependent atelectasis. No pleura l effusion. The heart size is normal. No pericardial effusion. There is mild intrahepatic bile duct d ilatation, likely secondary to cholecystectomy. The spleen, pancreas, adrenal glands, and kidneys are normal. There are multiple dilated loops of small bowel with transition point in distal ileum where there is wall thickening. There are changes of appendectomy. There is a widemouthed ventral hernia co ntaining small and large bowel. There are no pathologically enlarged lymph nodes. There is a small vo lume of ascites. There is mild lumbar spondylosis. IMPRESSION: 1. Small bowel obstruction with transition point in distal ileum. 2. Small volume of ascites. 3. Widemouthed ventral hernia containing small and large bowel. Reviewed, dictated and finalized at location A. ICAL LAB ASSISTANT
--- NOTE | ~2022-09-14 | XR_ITS ---
Supine portable view of the abdomen Clinical history: Obstruction COMPARISON: 09/16/2022 Findings: Bowel gas pattern is nonspecific. NG tube in satisfactory position. Cholecystectomy clips n oted. No evidence for obstruction or free air. No abnormal mass lesion or calcification is seen. Osse ous structures are intact. Impression: Nonspecific bowel gas pattern, with NG tube in place. Reviewed, dictated and finalized at location . T TRIMMER Impression: Nonspecific bowel gas pattern, with NG tube in place.
--- NOTE | ~2022-09-14 | XR_ITS ---
Supine portable view of the abdomen Clinical history: Small bowel obstruction Findings: Bowel gas pattern is nonspecific. NG tube in place. Cholecystectomy clips noted. No evidenc e for obstruction or free air. No abnormal mass lesion or calcification is seen. Osseous structures a re intact. Impression: NG tube in place, with nonspecific bowel gas pattern. Reviewed, dictated and finalized at [facility]. SHAPER Impression: NG tube in place, with nonspecific bowel gas pattern.
--- NOTE | ~2022-09-14 | XR_ITS ---
EXAMINATION: XR sm bowel follow through DATE: 09/18/2022 10:33 INDICATION: Small bowel obstruction TECHNIQUE: Water-soluble contrast was administered through the nasogastric tube, and sequential radio graphs of the abdomen were obtained until oral contrast was noted to be in the proximal colon. Spot f luoroscopic images of the small bowel were obtained. Fluoroscopy exposure time was 0.7 minutes. The D AP for this procedure was 12.465 Gycm2. COMPARISON: 06/04/2018 FINDINGS: The nasogastric tube is in the stomach. Transit time from the stomach to proximal colon was approximately between 30 to 45 minutes. There is normal caliber and mucosal fold pattern throughout the small bowel. Terminal ileum is normal. No tethering or abnormal mass effect observed upon the s mall bowel with real-time fluoroscopy. IMPRESSION: 1. Unremarkable small bowel follow-through. Reviewed, dictated and finalized at location A. WIRER
--- NOTE | 2022-09-14 19:40 | ED.ABDPAIN ---
HPI - Abdominal Pain General Chief Complaint: Abdominal Pain Stated Complaint: abdominal pain since Thursday Time Seen by Provider: 09/14/22 19:23 Source: RN notes reviewed History of Present Illness HPI narrative: Patient presents emergency department from home for abdominal pain. Patient states symptoms began 2 days ago pain is diffuse throughout the abdomen and is worse in the lower quadrants. Described as sharp and stabbing in nature. States mild nausea but denies any vomiting states she has also had diarrhea. Patient states she states she has not take anything for the pain today. States that she does have a history of diverticulitis and has had a history of a colon resection in the past she is also had a history of appendectomy and cholecystectomy has had a bowel obstruction before in the past as well Related Data Allergies Allergy/AdvReac Type Severity Reaction Status Date / Time No Known Allergies Allergy Verified 09/14/22 20:22 Review of Systems Review of Systems: Gen.: Denies fevers or chills ENT: Denies congestion Respiratory: Denies shortness of breath or cough CV: Denies chest pain or palpitations GI: See HPI denies burning, urgency, frequency or hematuria Musculoskeletal: Denies back pain or muscle pain Neuro: Denies numbness, tingling, weakness or focal weakness Skin: Denies rash Except as documented, all other systems reviewed and negative PMFSH Past Medical History Medical History Acute diverticulitis History of renal calculi Nephrolithiasis Overweight (BMI 25.0-29.9) Right ureteral stone Surgical History Surgical History (Updated 06/16/22 @ 09:59 by Poli Jordan MD) History of cholecystectomy History of hysterectomy Family History Family History Other Carcinoma of colon Other Diabetes mellitus Grandparent Heart attack Other Family history of coronary artery disease Social History Social History Smoking status: Never smoker Second hand tobacco smoke exposure: No Alcohol intake: never Drinks per week: 5 Substance use: never Gender identity (if verbalized by the patient): Female Spiritual care concerns: No Exam Narrative: APPEARANCE: No acute distress, nontoxic, resting in bed HEENT: Normocephalic, atraumatic, OMM RESPIRATORY: No respiratory distress, clear to auscultation bilaterally with no rhonchi wheezing or rales CARDIOVASCULAR: RRR s murmur ABDOMINAL: Mildly distended diffusely tender to palpation no rebound or guarding MUSCULOSKELETAl: Moves all extremities. No clubbing, cyanosis or edema. NEURO: Awake and alert. Following commands, speech normal, no focal deficits SKIN:: Warm, dry. Normal Color PSYCHIATRIC: Normal affect/mood Course Course Emergency Course: Discussed with Dr. Tian presentation work-up agrees with consult. Recommends no antibiotics at this time Discussed with Dr. Hough agrees with admission Discussed with patient and family results of workup and diagnosis. Discussed need for admission. Patient and family understand and agree to current treatment plan Vital Signs Vital signs: Vital Signs Temperature 97.5 F L 09/14/22 16:51 Pulse Rate 100 09/14/22 16:51 Respiratory Rate 18 09/14/22 16:51 Blood Pressure 132/88 09/14/22 16:51 Pulse Oximetry 99 09/14/22 16:51 Oxygen Delivery Room Air 09/14/22 16:51 Temperature 98.3 F 09/14/22 21:50 Pulse Rate 79 09/14/22 21:50 Respiratory Rate 18 09/14/22 21:50 Blood Pressure 128/92 H 09/15/22 00:01 Pulse Oximetry 97 09/15/22 00:46 Oxygen Delivery Room Air 09/14/22 16:51 MDM - Abdominal Pain MDM Narrative Medical decision making narrative: Patient presented with abdominal pain history of numerous surgeries history of diverticulitis and small bowel obstruction lab results were obt
[2022-09-14] MEDS: MORPHINE SULFATE (*CRX) 4 MG/ML INJ IV PUSH (20:38)
[2022-09-14] MEDS: SODIUM CHLORIDE 0.9% IV 1,000 ML 999 ML IV CONT (20:38)
[2022-09-14] MEDS: ONDANSETRON INJ 4 MG/2 ML VIAL IV PUSH (20:38)
[2022-09-14 20:50] LABS: Add Urine Microscopic? NO; Appearance Urine Clear (Clear); Basophils Absolute Auto 0.1 K/mm3 (0.0-0.1); Basophils Percent Auto 0.8 % (0.2-1.2); Bilirubin Urine Negative (Negative); Blood Urine Negative (Negative); Color Urine Yellow (Yellow); Eosinophils Absolute Auto 0.1 K/mm3 (0-0.3); Eosinophils Percent Auto 0.9 % (0-4.4); Glucose Urine UA Negative (Negative); Hematocrit 43.7 % (37.0-47.0); Hemoglobin 14.4 g/dL (12.0-15.0); Immature Granulocyte Absolute 0.02 K/mm3 (0.00-0.031); Immature Granulocyte Percent A 0.2 % (0-0.5); Ketones Urine Negative (Negative); Leukocyte Esterase Ur Negative LEU/UL (Negative); Lymphocytes Absolute Auto 2.75 K/mm3 (0.9-3.2); Lymphocytes Percent Auto 24.8 % (18.3-44.2); Mean Corpuscular Hemoglobin 29.2 pg (26-34); Mean Corpuscular Volume 88.6 fl (80-100); Mean Platelet Volume 9.3 fl (7.4-10.4); Monocytes Absolute Auto 0.7 K/mm3 (0.1-0.6); Monocytes Percent Auto 5.9 % (2.6-8.5); Neutrophils Absolute Auto 7.5 K/mm3 (1.3-6.7); Neutrophils Percent Auto 67.4 % (45.5-73.1); Nitrate Urine Negative (Negative); Platelet Count Result 346 k/mm3 (150-375); Protein Urine Negative (Negative); Red Blood Count 4.93 M/mm3 (4.2-5.4); Red Cell Distribution Width 12.9 % (11.5-14.5); Specific Grav Ur >= 1.030 (1.001-1.035); Urobilinogen Urine 0.2 mg/dL (<2.0); White Blood Count 11.1 K/mm3 (4.5-10.0)
[2022-09-14 20:58] LABS: Alanine Aminotransferase 29 U/L (6-35); Alkaline Phosphatase 167 U/L (38-126); Anion Gap 11 mmol/L (8-16); Aspartate Amino Transferase 34 U/L (14-36); Bilirubin,Total 0.4 mg/dL (0.2-1.3); Blood Urea Nitrogen 15 mg/dL (7-17); Calcium 9.3 mg/dL (8.4-10.2); Carbon Dioxide 24 mmol/L (22-30); Chloride 106 mmol/L (98-107); Estimated CRCL calculation 83 ml/min; Estimated Glomerular Filt Rate > 60; Glucose 104 mg/dL (65-110); Lipase 258 U/L (23-300); Potassium 3.6 mmol/L (3.4-5.0); Sodium 141 mmol/L (137-145)
--- NOTE | 2022-09-14 21:02 | PC.NURSE ---
Patient in room. Complaints of abd pain. States is seen frequently in ER smiling during assessment.
[2022-09-14] MEDS: HYDROmorphone HCL INJ (*CRX) 1 MG/ML SYR 0.5 MG IV PUSH (22:25)
[2022-09-15] VITALS (13 sets, daily range): BP systolic 108–128; BP diastolic 70–92; PULSE 57–86; RESP 16–18; TEMP 36.5–36.9; O2SAT 95–99; BMI 25.5
[2022-09-15] MEDS: HYDROmorphone HCL INJ (*CRX) 1 MG/ML SYR 0.5 MG IV PUSH (00:06)
[2022-09-15] MEDS: PANTOPRAZOLE SODIUM IV 40 MG VIAL IV PUSH (00:31)
[2022-09-15] MEDS: SODIUM CHLORIDE 0.9% IV 1,000 ML 125 ML IV CONT (01:05)
[2022-09-15 01:09] LABS: Influenza A QL RT-PCR Negative (Negative); Influenza B QL RT-PCR Negative (Negative); SARS-CoV-2 RNA PCR Negative
--- NOTE | 2022-09-15 01:42 | ADMGEN ---
This patient, Sara Aviles, was admitted to Medical Room 247-. Patient/family oriented to hospital policies and general routines including ID bracelet, bed and alarms, visiting hours, pain management, procedures, bathroom and other care routines, personal items, smoking policy, room service/diet, and visiting hours. Information on how to activate the Rapid Response Team has been discussed. Patient/Family are encouraged to report perceived risks to care and to ask questions if they do not understand what they are told or what they should do.
--- NOTE | 2022-09-15 01:49 | PM.IMHP ---
H&P: HPI History of Present Illness Date/Time: 09/15/22 01:49 Chief Complaint: Nausea vomiting Narrative: Patient is a 41-year-old female with past medical history kidney stones presents to ED with complaints of nausea vomiting and abdominal pain. Patient has had the sharp stabbing abdominal pain issues over last couple days with a few episodes of diarrhea. Of note patient has a history of hysterectomy, cholecystectomy, appendectomy, hernia repair x6, 10 in large bowel called resection 02/2021. She has had history of small-bowel obstruction in 2018 which resolved spontaneously. In the ED: WBC 11 K, CT abdomen concerning for small-bowel obstruction transition point right low pelvis, small bowel loops are 3.2 cm in diameter, superimposed enterocolitis. NG tube was placed. General surgery Dr. Tian notified for consultation. Patient to be admitted for small-bowel obstruction. Review of Systems Review of Systems: Constitutional: No Fever, No Chills, No Night Sweats, No Fatigue, No Malaise ENT/Mouth: No Hearing Changes, No Ear Pain, No Nasal Congestion, No Sinus Pain, No Hoarseness, No sore throat, No Rhinorrhea, No Swallowing Difficulty Eyes: No Eye Pain, No Redness, No Vision Changes Cardiovascular: No Chest Pain, No Palpitations, No Dyspnea on Exertion, No Orthopnea, No Claudication, No Edema Respiratory: No Cough, No Sputum, No Wheezing, No Shortness of Breath Gastrointestinal: Endorses nausea vomiting abdominal pain Genitourinary: No Dysuria, No Urinary Frequency, No Hematuria, No Urinary Incontinence, No Urgency Musculoskeletal: No Arthralgias, No Myalgias, No Joint Swelling, No Joint Stiffness, No Back Pain Skin: No Skin Lesions, No Pruritis, No Hair Changes Neuro: No Weakness, No Numbness, No Paresthesias, No Loss of Consciousness, No Syncope, No Dizziness, No Headache Psych: No Anxiety/Panic, No Depression, No Insomnia Heme: No Bruising, No Bleeding Lymph: No Adenopathy Endocrine: No Polyuria, No Polydipsia, No Temperature Intolerance [facility] Past Medical History Medical History Acute diverticulitis History of renal calculi Nephrolithiasis Overweight (BMI 25.0-29.9) Right ureteral stone Surgical History Surgical History History of cholecystectomy History of hysterectomy Family History Family History Other Carcinoma of colon Other Diabetes mellitus Grandparent Heart attack Other Family history of coronary artery disease Social History Social History Smoking status: Never smoker Second hand tobacco smoke exposure: No Alcohol intake: never Drinks per week: 5 Substance use: never Gender identity (if verbalized by the patient): Female Spiritual care concerns: No Meds Home Medications and Allergies Home Medications Medication Instructions Recorded Confirmed Type No Home Medications 09/15/22 09/15/22 History Allergies Allergy/AdvReac Type Severity Reaction Status Date / Time No Known Allergies Allergy Verified 09/14/22 20:22 Vital Signs Vital Signs - 24 hr 09/14/22 16:51 09/14/22 21:50 09/14/22 21:02 Temperature 36.4 C L 36.8 C Pulse Rate 100 79 Respiratory Rate 18 18 Blood Pressure 132/88 126/79 Pulse Oximetry 99 100 100 Oxygen Delivery Room Air 09/14/22 21:03 09/14/22 21:15 09/14/22 21:52 Temperature Pulse Rate Respiratory Rate Blood Pressure 128/88 Pulse Oximetry 100 96 98 Oxygen Delivery 09/14/22 22:07 09/14/22 22:18 09/14/22 22:31 Temperature Pulse Rate Respiratory Rate Blood Pressure 127/88 Pulse Oximetry 99 97 99 Oxygen Delivery 09/14/22 22:32 09/14/22 23:01 09/14/22 23:33 Temperature Pulse Rate Respiratory Rate Blood Pressure 125/90 Pulse Oximet
[2022-09-15] MEDS: MORPHINE SULFATE (*CRX) 4 MG/ML INJ IV PUSH ×2 (03:13→06:25)
[2022-09-15] MEDS: ENOXAPARIN 40 MG/0.4 ML SYRINGE SUB-Q (08:36)
[2022-09-15] MEDS: HYDROmorphone HCL INJ (*CRX) 1 MG/ML SYR IV PUSH ×4 (09:48→21:10)
[2022-09-15] MEDS: KCL 20 MEQ/D5/0.9% SOD CHL 1,000 ML 100 ML IV CONT ×2 (09:48→20:13)
[2022-09-15 10:44] LABS: Hematocrit 37.9 % (37.0-47.0); Hemoglobin 12.2 g/dL (12.0-15.0); Mean Corpuscular HGB Conc 32.2 g/dl (32-36); Mean Corpuscular Hemoglobin 29.2 pg (26-34); Mean Corpuscular Volume 90.7 fl (80-100); Mean Platelet Volume 9.3 fl (7.4-10.4); Platelet Count Result 247 k/mm3 (150-375); Red Blood Count 4.18 M/mm3 (4.2-5.4); Red Cell Distribution Width 13.1 % (11.5-14.5); White Blood Count 7.9 K/mm3 (4.5-10.0)
[2022-09-15 10:54] LABS: Anion Gap 3 mmol/L (8-16); Blood Urea Nitrogen 9 mg/dL (7-17); Calcium 8.1 mg/dL (8.4-10.2); Carbon Dioxide 25 mmol/L (22-30); Chloride 107 mmol/L (98-107); Estimated CRCL calculation 87 ml/min; Estimated Glomerular Filt Rate > 60; Glucose 105 mg/dL (65-110); Potassium 3.5 mmol/L (3.4-5.0); Sodium 135 mmol/L (137-145)
[2022-09-15] MEDS: FAMOTIDINE 20 MG/2 ML VIAL IV PUSH ×2 (11:13→20:13)
--- NOTE | 2022-09-15 11:15 | PM.IMPN ---
Progress Note: A&P Assessment and Plan (1) SBO (small bowel obstruction): Code(s): K56.609 - Unspecified intestinal obstruction, unspecified as to partial versus complete obstruction Status: Acute Assessment and Plan: History significant abdominal surgeries including hysterectomy, cholecystectomy, appendectomy, partial colon resection Abdominal CT shows SBO, no perforation or abscess noted continue NG tube to low intermittent suction. bowel sounds present, hopeful resolution consult general surgery Dr. Tian will continue supportive care IV fluids normal saline 125 cc/hour NPO for now, surgery to advance Zofran for nausea morphine for pain Time Spent With Patient Time with patient: Greater than 35 minutes Subjective Date/time seen: 09/15/22 111 Interval history: 09/15/221114 Patient is doing okay today. She did state that she feels a lot better however she still having a lot of pain in her lower abdomen. She also stated that she has been dizzy when she stands. Nausea has been better. She denies any chest pain or shortness of breath. She does have her NG tube which is in place and draining a green yellow bile. 09/15/22? 01:49 Patient is a 41-year-old female with past medical history kidney stones presents to ED with complaints of nausea vomiting and abdominal pain.? Patient has had the sharp stabbing abdominal pain issues over last couple days with a few episodes of diarrhea.? Of note patient has a history of hysterectomy, cholecystectomy, appendectomy, hernia repair x6, 10 in large bowel called resection 02/2021.? She has had history of small-bowel obstruction in 2018 which resolved spontaneously. In the ED:? WBC 11 K, CT abdomen concerning for small-bowel obstruction transition point right low pelvis, small bowel loops are 3.2 cm in diameter, superimposed enterocolitis.? NG tube was placed.? General surgery Dr. Tian notified for consultation.? Patient to be admitted for small-bowel obstruction. Review of Systems Review of Systems: All systems reviewed & are unremarkable except as noted in HPI and below Exam Narrative: General: well-nourished, ill-appearing 41-year-old female, sitting up in bed, comfortable, NARD Neuro: awake, alert and oriented x4, speech clear, no focal neuro deficits noted HEENMT: normocephalic, atraumatic, EOMI, sclerae anicteric, moist oral mucosa Respiratory: Clear to auscultation bilaterally without crackles, rhonchi or wheezes, nonlabored breathing Cardio: regular rate, regular rhythm with S1-S2 Abdomen: nondistended, hypoactive bowel sounds, soft, tender to palpation, NG in place draining a green and yellow bile Extremities: no edema, erythema, or tenderness to palpation, DP pulses 2+ bilaterally Skin: no rashes or lesions, warm and dry Psych: appropriate mood and affect, judgment and insight intact Objective Data Vital Signs Vital Signs: Vital Signs - 24 hr 09/14/22 16:51 09/14/22 21:50 09/14/22 21:02 Temperature 97.5 F L 98.3 F Pulse Rate 100 79 Respiratory Rate 18 18 Blood Pressure 132/88 126/79 Pulse Oximetry 99 100 100 Oxygen Delivery Room Air 09/14/22 21:03 09/14/22 21:15 09/14/22 21:52 Temperature Pulse Rate Respiratory Rate Blood Pressure 128/88 Pulse Oximetry 100 96 98 Oxygen Delivery 09/14/22 22:07 09/14/22 22:18 09/14/22 22:31 Temperature Pulse Rate Respiratory Rate Blood Pressure 127/88 Pulse Oximetry 99 97 99 Oxygen Delivery 09/14/22 22:32 09/14/22 23:01 09/14/22 23:33 Temperature Pulse Rate Respiratory Rate Blood Pressure 125/90 Pulse Oximetry 100 98 94 Oxygen Delivery 09/14/22 23:45 09/15/22 00:00 09/15/22 00:01 Temperature Pulse Rate Respiratory Rate Blood Pressure 128/92 H Pulse Oximetry 98 96 98 Oxygen Delivery 09/15/22 00:15 09/15/22 00:30 09/15/22 00:46 Temperature Pulse Rate Respiratory Rate Blood Pressu
--- NOTE | 2022-09-15 14:08 | PM.CNGS ---
Assessment and Plan Assessment and plan (1) SBO (small bowel obstruction): Code(s): K56.609 - Unspecified intestinal obstruction, unspecified as to partial versus complete obstruction Status: Acute Assessment and Plan: likely due to adhesions. I explained my findings and recommendations to the patient. Hopefully this will resolve without surgery as apparently happened in 2018. Continue NG tube, IV fluids, analgesics. Continue to follow with serial labs, x-rays, exam. Okay to ambulate and get up in a chair. Okay for ice chips. History of Present Illness Consult details Consult date: 09/15/22 Reason for consult: abdominal pain Requesting physician: Jose Frey DO Narrative: Patient is a 41-year-old woman who came to the emergency room yesterday evening with a 2 day history of diffuse abdominal pain. The pain seemed to start in the middle of the upper abdomen and progress downward towards her pubis. The pain was sharp and also had spasms or cramps. She had some nausea but no vomiting. She came to the emergency room and was noted on exam to have mild distension and had few sleep tender abdomen. [place] [address]20. She had a normal creatinine and lactate of 1.0. CT scan of the abdomen and pelvis was done. This showed evidence of a small-bowel obstruction with a transition point in the right pelvis. Patient has had many previous abdominal surgeries. In 2013 she had a total abdominal hysterectomy. In each of the subsequent 2 years, she had each of her ovaries then removed. She had a laparoscopic cholecystectomy in 2010. In 2020, after having been troubled with diverticulitis on several occasions, she had a sigmoidectomy done laparoscopically in February at a hospital in [facility]. About 2 weeks later she was taken back to surgery for acute appendicitis and appendectomy. In July of 2021 she was noted to have an incisional hernia and had this repaired laparoscopically at [facility] in [facility]. Patient did have an episode of small-bowel obstruction in 2017 which was managed without the need for operation. She is seen now in consultation regarding her bowel obstruction. Nasogastric tube was placed in the emergency room and patient is more comfortable but continues to have pain requiring pain medication. Review of Systems Review of Systems: All systems reviewed & are unremarkable except as noted in HPI and below ( HPI and those items noted below) Constitutional: Constitutional: Denies chills and Denies fever(s) Cardiovascular: Cardiovascular: Denies chest pain, Denies diaphoresis, Denies dyspnea and Denies paroxysmal nocturnal dyspnea Respiratory: Respiratory: Denies chest congestion, Denies cough and Denies dyspnea Integumentary/Breasts: Skin/Breast: Denies lesions and Denies rash [facility] Past Medical History Medical History (Updated 09/15/22 @ 14:24 by Nilo Tian MD) Acute diverticulitis resolved after sigmoidectomy in 2020 Overweight (BMI 25.0-29.9) Right ureteral stone Surgical History Surgical History History of appendectomy laparoscopic appendectomy February 2021 History of cholecystectomy 2010, laparoscopic History of hysterectomy 2013, ovaries removed each year the next 2 years History of incisional hernia repair laparoscopic incisional hernia repair July 2021 [facility] S/P laparoscopic-assisted sigmoidectomy February 2021 at [place], [place] Family History Family History Other Carcinoma of colon Other Diabetes mellitus Grandparent Heart attack Other Family history of coronary artery disease Social History Social History Smoking status: Never smoker Second hand tobacco smoke exposure: No Alcohol intake: current Drinks per week: 5 S
[2022-09-15] MEDS: ONDANSETRON INJ 4 MG/2 ML VIAL IV PUSH (15:01)
[2022-09-16] MEDS: HYDROmorphone HCL INJ (*CRX) 1 MG/ML SYR IV PUSH ×5 (02:14→23:51)
[2022-09-16 05:20] VITALS: BP 119/62; PULSE 61; RESP 17; TEMP 36.9; O2SAT 98
[2022-09-16 05:22] LABS: Basophils Absolute Auto 0.1 K/mm3 (0.0-0.1); Basophils Percent Auto 0.8 % (0.2-1.2); Eosinophils Absolute Auto 0.2 K/mm3 (0-0.3); Eosinophils Percent Auto 2.1 % (0-4.4); Hematocrit 36.1 % (37.0-47.0); Hemoglobin 11.5 g/dL (12.0-15.0); Immature Granulocyte Absolute 0.02 K/mm3 (0.00-0.031); Immature Granulocyte Percent A 0.3 % (0-0.5); Lymphocytes Absolute Auto 2.54 K/mm3 (0.9-3.2); Lymphocytes Percent Auto 35.8 % (18.3-44.2); Mean Corpuscular HGB Conc 31.9 g/dl (32-36); Mean Corpuscular Hemoglobin 29.3 pg (26-34); Mean Corpuscular Volume 92.1 fl (80-100); Mean Platelet Volume 9.4 fl (7.4-10.4); Monocytes Absolute Auto 0.5 K/mm3 (0.1-0.6); Monocytes Percent Auto 7.2 % (2.6-8.5); Neutrophils Absolute Auto 3.8 K/mm3 (1.3-6.7); Neutrophils Percent Auto 53.8 % (45.5-73.1); Platelet Count Result 234 k/mm3 (150-375); Red Blood Count 3.92 M/mm3 (4.2-5.4); Red Cell Distribution Width 12.8 % (11.5-14.5); White Blood Count 7.1 K/mm3 (4.5-10.0)
[2022-09-16] MEDS: HYDROmorphone HCL INJ (*CRX) 1 MG/ML SYR 0.5 MG IV PUSH ×3 (05:23→13:38)
[2022-09-16 06:03] LABS: Alanine Aminotransferase 21 U/L (6-35); Alkaline Phosphatase 82 U/L (38-126); Aspartate Amino Transferase 28 U/L (14-36); Blood Urea Nitrogen 4 mg/dL (7-17); Calcium 8.2 mg/dL (8.4-10.2); Chloride 108 mmol/L (98-107); Glucose 116 mg/dL (65-110); Potassium 3.8 mmol/L (3.4-5.0); Sodium 137 mmol/L (137-145)
[2022-09-16] MEDS: FAMOTIDINE 20 MG/2 ML VIAL IV PUSH ×2 (08:47→20:01)
[2022-09-16] MEDS: ENOXAPARIN 40 MG/0.4 ML SYRINGE SUB-Q (08:48)
[2022-09-16] MEDS: KCL 20 MEQ/D5/0.9% SOD CHL 1,000 ML 100 ML IV CONT ×2 (08:48→16:24)
[2022-09-16] MEDS: PHENOL/SOD PHENO SPRAY CHERRY (*BKC) 1 SPRAY MUCOUS MEM ×2 (08:55→16:22)
--- NOTE | 2022-09-16 09:30 | PM.IMPN ---
Progress Note: A&P Assessment and Plan (1) SBO (small bowel obstruction): Code(s): K56.609 - Unspecified intestinal obstruction, unspecified as to partial versus complete obstruction Status: Acute Assessment and Plan: History significant abdominal surgeries including hysterectomy, cholecystectomy, appendectomy, partial colon resection Abdominal CT shows SBO, no perforation or abscess noted Abd xray showed nonspecific bowel gas pattern, repeat in the am continue NG tube to low intermittent suction. bowel sounds present, hopeful resolution consult general surgery Dr. Tian will continue supportive care IV fluids normal saline with potassium 125 cc/hour NPO with ice chips for now, surgery to advance Zofran for nausea Dilaudid, ibuprofen PRN for pain Chloraseptic spray for throat pain Plan Back pain seems to have been better after walking and massage, continue to trend pain Time Spent With Patient Time with patient: Greater than 35 minutes Subjective Date/time seen: 09/16/22829 Interval history: 09/16/22829 Patient is doing about the same today. She was complaining of back pain, which she rated a 12/10. Unable to give her anything oral. She did state that the IV pain medications do help, however, she stated that they are wearing off quickly. She also stated that this started over night and woke her up from a deep sleep. Unable to give her anything due to the NPO status. She does have pain medicines if needed. Patient still has pain in her lower abdomen and states is tolerable. Ask nursing to try to get her out of bed to see if that helps. She currently denies any chest pain, shortness a breath, weakness or fatigue. 09/15/22 1115 Patient is doing okay today. She did state that she feels a lot better however she still having a lot of pain in her lower abdomen. She also stated that she has been dizzy when she stands. Nausea has been better. She denies any chest pain or shortness of breath. She does have her NG tube which is in place and draining a green yellow bile. 09/15/22? 01:49 Patient is a 41-year-old female with past medical history kidney stones presents to ED with complaints of nausea vomiting and abdominal pain.? Patient has had the sharp stabbing abdominal pain issues over last couple days with a few episodes of diarrhea.? Of note patient has a history of hysterectomy, cholecystectomy, appendectomy, hernia repair x6, 10 in large bowel called resection 02/2021.? She has had history of small-bowel obstruction in 2018 which resolved spontaneously. In the ED:? WBC 11 K, CT abdomen concerning for small-bowel obstruction transition point right low pelvis, small bowel loops are 3.2 cm in diameter, superimposed enterocolitis.? NG tube was placed.? General surgery Dr. Tian notified for consultation.? Patient to be admitted for small-bowel obstruction. Review of Systems Review of Systems: All systems reviewed & are unremarkable except as noted in HPI and below Exam Narrative: General: well-nourished, well-appearing 41-year-old female, sitting up in bed, comfortable, NARD Neuro: awake, alert and oriented x4, speech clear, no focal neuro deficits noted HEENMT: normocephalic, atraumatic, EOMI, sclerae anicteric, moist oral mucosa Respiratory: Clear to auscultation bilaterally without crackles, rhonchi or wheezes, nonlabored breathing Cardio: regular rate, regular rhythm with S1-S2 Abdomen: nondistended, hypoactive bowel sounds, soft, tender to palpation, NG in place draining a green and yellow bile Extremities: no edema, erythema, or tenderness to palpation, DP pulses 2+ bilaterally Skin: no rashes or lesions, warm and dry Psych: appropriate mood and affect, judgment and insight intact Objective Data Vital Signs Vital Signs: Vital Signs - 24 hr 09/15/22 06:11 09/15/22 08:56 09/15/22 13:23 Temperature 97.8 F Pulse Rate 71 61 Respiratory Rate 16 18 Blood P
--- NOTE | 2022-09-16 10:51 | PM.PNGS ---
Progress Note: A&P Assessment and Plan (1) SBO (small bowel obstruction): Code(s): K56.609 - Unspecified intestinal obstruction, unspecified as to partial versus complete obstruction Status: Acute Assessment and Plan: still having pain. NG tube working well. Continue NPO, NG tube, IV fluids. Continue to monitor serial exam, labs, abdominal x-rays. Subjective Subjective Date/Time Seen: 09/16/22 10:51 Patient reports: still having pain, flatus, no bowel movement and afebrile Review of Systems Review of Systems: All systems reviewed & are unremarkable except as noted in HPI and below (HPI and those items noted below) Constitutional: Constitutional: Denies chills and Denies fever(s) Cardiovascular: Cardiovascular: Denies chest pain, Denies diaphoresis, Denies dyspnea and Denies paroxysmal nocturnal dyspnea Respiratory: Respiratory: Denies chest congestion, Denies cough and Denies dyspnea Integumentary/Breasts: Skin/Breast: Denies lesions and Denies rash Exam Const: General: comfortable and no acute distress; No confusion Orientation/consciousness: patient oriented x3 and No confusion GI: Inspection: distended GI Palp: Yes Soft to palpation, Yes Tenderness to palpation present (GI) ( diffusely), No Guarding due to palpation present (GI) and No Rebound tenderness present Auscultation: normal bowel sounds Neuro: General: patient oriented x3, no focal motor deficits and No confusion Extrem: General: no calf tenderness and no edema Psych: Affect: normal affect Insight: Good insight present (Psych) Judgement: Good judgement present (Psych) Objective Data Vital Signs Vital Signs: Vital Signs - 24 hr 09/15/22 13:23 09/15/22 17:47 09/15/22 21:00 Temperature 36.9 C Pulse Rate 61 57 L Respiratory Rate 18 18 Blood Pressure 108/70 114/77 119/74 Pulse Oximetry 98 95 Oxygen Delivery 09/15/22 23:26 09/15/22 20:00 09/16/22 05:20 Temperature 36.7 C 36.9 C Pulse Rate 58 L 61 Respiratory Rate 18 17 Blood Pressure 122/80 119/62 Pulse Oximetry 97 98 Oxygen Delivery Room Air Intake/Output Intake/Output: Intake & Output 12/31/22 01/01/23 01/02/23 01/03/23 23:59 23:59 23:59 23:59 Intake Total 1000 2000 1020 Output Total 200 800 Balance 1000 1800 220 large amount in canister from NG suction, NG output not recorded Meds/Results Medications: Active Medications Generic Name Dose Route Start Last Admin Trade Name Freq PRN Reason Stop Dose Admin Enoxaparin Sodium 40 mg 09/15/22 09:00 09/16/22 08:48 Enoxaparin 40 Mg/0.4 Ml Syringe SUB-Q 40 mg DAILY WILEY Administration Famotidine 20 mg 09/15/22 21:00 09/16/22 08:47 Famotidine 20 Mg/2 Ml Vial IV PUSH 20 mg Q12HR WILEY Administration Hydromorphone HCl 1 mg 09/15/22 08:50 09/16/22 08:46 Hydromorphone Hcl Inj (*Crx) 1 Mg/Ml Syr IV PUSH 1 mg Q3H PRN Administration Pain Rated 7-10 Hydromorphone HCl 0.5 mg 09/15/22 09:05 09/16/22 05:23 Hydromorphone Hcl Inj (*Crx) 1 Mg/Ml Syr IV PUSH 0.5 mg Q2H PRN Administration Pain Rated 4-6 Ibuprofen 800 mg in 200 mls @ 400 mls/hr 09/15/22 09:05 Caldolor 800 Mg/200 Ml IVPB Q6H PRN Pain Rated 1-3 Potassium Chloride/Dextrose/Sod Cl 1,000 mls @ 100 mls/hr 09/15/22 10:00 09/16/22 08:48 Kcl 20 Meq/D5/0.9% Sod Chl IV CONT 100 mls/hr .Q10H WILEY Administration Ondansetron HCl 4 mg 09/15/22 00:15 09/15/22 15:01 Ondansetron Inj 4 Mg/2 Ml Vial IV PUSH 4 mg Q4H PRN Administration Nausea Phenol 1 spray 09/16/22 06:05 09/16/22 08:55 Phenol/Sod Pheno [place] Carias (*Bkc) MUCOUS MEM 1 spray PRN PRN Administration Sore Throat Radiology Results: ITS Impressions Abdomen/Pelvis CT 09/15/22 11:24 IMPRESSION: 1. Small bowel obstruction with transition point in distal ileum. 2. Small volume of ascites. 3. Widemouthed ventral hernia containing small and large bowel. Abdomen X-Ray
[2022-09-16 11:02] LABS: Albumin Level 3.6 g/dL (3.5-5.1); Anion Gap 6 mmol/L (8-16); Bilirubin,Total 0.4 mg/dL (0.2-1.3); Carbon Dioxide 23 mmol/L (22-30); Estimated CRCL calculation 87 ml/min; Estimated Glomerular Filt Rate > 60
[2022-09-16 14:20] VITALS: BP 134/82; PULSE 71; RESP 16; TEMP 36.7; O2SAT 100
[2022-09-16 19:47] VITALS: BP 134/85; PULSE 76; RESP 17; TEMP 36.4; O2SAT 100
[2022-09-17] MEDS: KCL 20 MEQ/D5/0.9% SOD CHL 1,000 ML 100 ML IV CONT (02:29)
[2022-09-17] MEDS: PHENOL/SOD PHENO SPRAY CHERRY (*BKC) 1 SPRAY MUCOUS MEM ×2 (02:30→21:10)
[2022-09-17] MEDS: IBUPROFEN IV 800 MG/200 ML 800 MG/200 ML BAG 400 MG IVPB (02:34)
[2022-09-17 03:38] VITALS: BP 115/82; PULSE 72; RESP 18; TEMP 36.5; O2SAT 99
[2022-09-17 05:51] LABS: Anion Gap 5 mmol/L (8-16); Blood Urea Nitrogen 2 mg/dL (7-17); Calcium 8.7 mg/dL (8.4-10.2); Carbon Dioxide 30 mmol/L (22-30); Chloride 105 mmol/L (98-107); Estimated CRCL calculation 87 ml/min; Estimated Glomerular Filt Rate > 60; Glucose 117 mg/dL (65-110); Potassium 3.6 mmol/L (3.4-5.0); Sodium 140 mmol/L (137-145)
[2022-09-17 05:57] LABS: Hematocrit 37.2 % (37.0-47.0); Hemoglobin 12.3 g/dL (12.0-15.0); Mean Corpuscular HGB Conc 33.1 g/dl (32-36); Mean Corpuscular Hemoglobin 28.8 pg (26-34); Mean Corpuscular Volume 87.1 fl (80-100); Mean Platelet Volume 9.3 fl (7.4-10.4); Platelet Count Result 274 k/mm3 (150-375); Red Blood Count 4.27 M/mm3 (4.2-5.4); Red Cell Distribution Width 12.1 % (11.5-14.5); White Blood Count 7.2 K/mm3 (4.5-10.0)
[2022-09-17] MEDS: HYDROmorphone HCL INJ (*CRX) 1 MG/ML SYR IV PUSH ×5 (06:03→22:43)
[2022-09-17] MEDS: FAMOTIDINE 20 MG/2 ML VIAL IV PUSH ×2 (08:22→20:59)
[2022-09-17] MEDS: ENOXAPARIN 40 MG/0.4 ML SYRINGE SUB-Q (08:22)
[2022-09-17 08:45] VITALS: O2SAT 95
--- NOTE | 2022-09-17 09:33 | PM.PNGS ---
Progress Note: A&P Assessment and Plan (1) SBO (small bowel obstruction): Code(s): K56.609 - Unspecified intestinal obstruction, unspecified as to partial versus complete obstruction Status: Acute Assessment and Plan: Still having abdominal pain and no bowel function yet. Continue NG tube and bowel rest. Will order PICC line and start TPN for nutrition. Continue to monitor serial exams, labs, and abdominal x-rays. Plan I have discussed the patient's case and plan of care with Dr. Tian. Subjective Subjective Date/Time Seen: 09/17/22 09:33 Patient reports: no new complaints, still having pain, no flatus, no bowel movement and afebrile Review of Systems Review of Systems: All systems reviewed & are unremarkable except as noted in HPI and below Constitutional: Constitutional: Reports no additional constitutional complaints, Denies fever(s) and Denies headache(s) Gastrointestinal: Gastrointestinal: Reports as per HPI and Reports no additional gastrointestinal complaints Exam Const: General: no acute distress and awake Orientation/consciousness: patient oriented x3 GI: Inspection: non-distended GI Palp: Yes Soft to palpation, Yes Tenderness to palpation present (GI) (diffusely), No Guarding due to palpation present (GI) and No Rebound tenderness present Auscultation: normal bowel sounds Extrem: General: no calf tenderness and no edema Psych: Thought process: Normal thought process present Insight: Good insight present (Psych) Objective Data Vital Signs Vital Signs: Vital Signs - 24 hr 09/16/22 14:20 09/16/22 19:47 09/16/22 20:00 Temperature 98.1 F 97.5 F L Pulse Rate 71 76 Respiratory Rate 16 17 Blood Pressure 134/82 134/85 Pulse Oximetry 100 100 Oxygen Delivery Room Air 09/17/22 03:38 09/17/22 08:45 Temperature 97.7 F Pulse Rate 72 Respiratory Rate 18 Blood Pressure 115/82 Pulse Oximetry 99 95 Oxygen Delivery Room Air Intake/Output Intake/Output: Intake & Output 09/14/22 09/15/22 09/16/22 09/17/22 23:59 23:59 23:59 23:59 Intake Total 1000 2000 2020 1250 Output Total 200 2951 650 Balance 1000 1800 -931 600 Meds/Results Medications: Active Medications Generic Name Dose Route Start Last Admin Trade Name Freq PRN Reason Stop Dose Admin Enoxaparin Sodium 40 mg 09/15/22 09:00 09/17/22 08:22 Enoxaparin 40 Mg/0.4 Ml Syringe SUB-Q 40 mg DAILY WILEY Administration Famotidine 20 mg 09/15/22 21:00 09/17/22 08:22 Famotidine 20 Mg/2 Ml Vial IV PUSH 20 mg Q12HR WILEY Administration Hydromorphone HCl 1 mg 09/15/22 08:50 09/17/22 06:03 Hydromorphone Hcl Inj (*Crx) 1 Mg/Ml Syr IV PUSH 1 mg Q3H PRN Administration Pain Rated 7-10 Hydromorphone HCl 0.5 mg 09/15/22 09:05 09/16/22 13:38 Hydromorphone Hcl Inj (*Crx) 1 Mg/Ml Syr IV PUSH 0.5 mg Q2H PRN Administration Pain Rated 4-6 Ibuprofen 800 mg in 200 mls @ 400 mls/hr 09/15/22 09:05 09/17/22 03:05 Caldolor 800 Mg/200 Ml IVPB Infused Q6H PRN Infusion Pain Rated 1-3 Potassium Chloride/Dextrose/Sod Cl 1,000 mls @ 100 mls/hr 09/15/22 10:00 09/17/22 02:29 Kcl 20 Meq/D5/0.9% Sod Chl IV CONT 100 mls/hr .Q10H WILEY Administration Ondansetron HCl 4 mg 09/15/22 00:15 09/15/22 15:01 Ondansetron Inj 4 Mg/2 Ml Vial IV PUSH 4 mg Q4H PRN Administration Nausea Phenol 1 spray 09/16/22 06:05 09/17/22 02:30 Phenol/Sod Pheno [place] Carias (*Bkc) MUCOUS MEM 1 spray PRN PRN Administration Sore Throat Radiology Results: ITS Impressions Abdomen/Pelvis CT 09/15/22 11:24 IMPRESSION: 1. Small bowel obstruction with transition point in distal ileum. 2. Small volume of ascites. 3. Widemouthed ventral hernia containing small and large bowel. Abdomen X-Ray 09/17/22 06:06 Impression: Nonspecific bowel gas pattern, with NG tube in place. Labs Labs: Laboratory Results - last 24 hr 09/16/22 09/17/2209/17
[2022-09-17 11:37] LABS: Transferrin 235 mg/dL (206-381)
[2022-09-17] MEDS: LIDOCAINE HCL 1% PF INJ 5 ML VIAL INFILTRATE (12:20)
[2022-09-17 12:29] LABS: Partial Thromboplastin Time 30.3 SECONDS (22.3-36.8)
--- NOTE | 2022-09-17 12:56 | PCNFU ---
Nutrition Follow-Up Complete: Inadqeuate energy intake related to NPO status and altered GI function as evidenced by current diet order and dx. Goal: Diet advancement when appropriate _ Not meeting goal yet. New goal: Tolerate TPN at goal rate: Clinmix E 5/15 with lipids at goal rate 60 ml/h Pt current nutrition is NPO except for ice chips. Central line placement ordered for TPN due to small bowel obstruction. Nutrition recommendation: Start TPN Clinmix E 5/15 with lipids. Goal rate 60 ml/h. Start at 40 ml/h and advance by 10 ml/h q 24 hours as tolerated. Last recorded weight is 65.5 kg. Bowel Motility: No BM charted. 1 ml stool output recorded Labs Reviewed: BUN 2, Crea 0.6 Meds Noted: Lovenox, Zofran Skin: WNL Additional Notes: Still having abdominal pain and no bowel function so order placed for central line to start TPN. Agree with order. Continue to monitor. Monitor for diet order, intake, wt, labs. Follow up in 3 days.
[2022-09-17] MEDS: AMINO ACIDS 5%/D15W/E-LYTES/CA 2,000 ML with MULTIVITAMINS-12 INJ VIAL 1 2.5 ML, MULTIV... 60 ML IV CONT (13:10)
[2022-09-17] MEDS: FAT EMULSIONS IV 20% 250 ML 20.83 ML IVPB (13:10)
[2022-09-17] MEDS: KCL 20 MEQ/D5/0.9% SOD CHL 1,000 ML 70 ML IV CONT (13:19)
[2022-09-17] MEDS: CENTRAL LINE FLUSH 10 ML IV PUSH ×2 (13:24→21:09)
[2022-09-17 14:00] VITALS: BP 147/85; PULSE 70; RESP 17; TEMP 37.3; O2SAT 98
--- NOTE | 2022-09-17 17:10 | PM.IMPN ---
Progress Note: A&P Assessment and Plan (1) SBO (small bowel obstruction): Code(s): K56.609 - Unspecified intestinal obstruction, unspecified as to partial versus complete obstruction Status: Acute Assessment and Plan: History significant abdominal surgeries including hysterectomy, cholecystectomy, appendectomy, partial colon resection. CTA on admission showed small bowel obstruction without perforation or abscess. Appreciate general surgery consultation. Continue with NG decompression today. PICC line placed to begin TPN. Continue to monitor serial exams and abdominal x-rays. Supportive care. NPO Subjective Date/time seen: 09/17/22 17:10 Interval history: date of service: 09/17/2022 patient seen in follow-up for small bowel obstruction. Feeling okay today. No abdominal pain. Endorses abdominal pressure and soreness with movements which she rates as 8/10. Yesterday had some mid upper back pain which has improved today. Has a sore throat secondary to NG tube. Denies cough. Denies fever, chills. is able to walk around the unit today and tolerated this well. Did endorse some mild dizziness upon standing. No additional concerns. Review of Systems Review of Systems: All systems reviewed & are unremarkable except as noted in HPI and below Exam Narrative: General: Well-nourished, well-appearing 41-year-old female, sitting up in bed, comfortable, NARD Neuro: awake, alert and oriented x4, speech clear, no focal neuro deficits noted HEENMT: normocephalic, atraumatic, EOMI, sclerae anicteric Respiratory: clear to auscultation bilaterally, nonlabored breathing Cardio: regular rate, regular rhythm with S1-S2 Abdomen: nondistended, normoactive bowel sounds, soft, nontender to palpation Extremities: no edema, erythema, or tenderness to palpation, DP pulses 2+ bilaterally Skin: no rashes or lesions, warm and dry Psych: appropriate mood and affect, judgment and insight intact Objective Data Vital Signs Vital Signs: Vital Signs - 24 hr 09/16/22 19:47 09/16/22 20:00 09/17/22 03:38 Temperature 97.5 F L 97.7 F Pulse Rate 76 72 Respiratory Rate 17 18 Blood Pressure 134/85 115/82 Pulse Oximetry 100 99 Oxygen Delivery Room Air 09/17/22 08:45 09/17/22 14:00 Temperature 99.2 F Pulse Rate 70 Respiratory Rate 17 Blood Pressure 147/85 H Pulse Oximetry 95 98 Oxygen Delivery Room Air Intake/Output Intake/Output: Intake & Output 09/14/22 09/15/22 09/16/22 09/17/22 23:59 23:59 23:59 23:59 Intake Total 1000 1999 2019 2250 Output Total 200 2951 650 Balance 1000 1800 -931 1600 Meds/Results Medications: Active Medications Generic Name Dose Route Start Last Admin Trade Name Freq PRN Reason Stop Dose Admin Enoxaparin Sodium 40 mg 09/15/22 09:00 09/17/22 08:22 Enoxaparin 40 Mg/0.4 Ml Syringe SUB-Q 40 mg DAILY WILEY Administration Famotidine 20 mg 09/15/22 21:00 09/17/22 08:22 Famotidine 20 Mg/2 Ml Vial IV PUSH 20 mg Q12HR WILEY Administration Hydromorphone HCl 1 mg 09/15/22 08:50 09/17/22 15:12 Hydromorphone Hcl Inj (*Crx) 1 Mg/Ml Syr IV PUSH 1 mg Q3H PRN Administration Pain Rated 7-10 Hydromorphone HCl 0.5 mg 09/15/22 09:05 09/16/22 13:38 Hydromorphone Hcl Inj (*Crx) 1 Mg/Ml Syr IV PUSH 0.5 mg Q2H PRN Administration Pain Rated 4-6 Ibuprofen 800 mg in 200 mls @ 400 mls/hr 09/15/22 09:05 09/17/22 03:05 Caldolor 800 Mg/200 Ml IVPB Infused Q6H PRN Infusion Pain Rated 1-3 Potassium Chloride/Dextrose/Sod Cl 1,000 mls @ 70 mls/hr 09/15/22 10:00 09/17/22 13:19 Kcl 20 Meq/D5/0.9% Sod Chl IV CONT 70 mls/hr .[id number] WILEY Administration Dextrose 1,000 mls @ 50 mls/hr 09/17/22 11:10 Dextrose 10% IV CONT .Q20H PRN if PN is interrupted Multivitamins 2.5 ml/ 2,005 mls @ 60 mls/hr 09/17/22 13:00 09/17/22 13:10 Multivitamins 2.5 ml/ Amino IV CONT 60 mls/hr Acids/Electrolytes/Dextros
[2022-09-17 18:18] LABS: Glucose Point of Care 124 mg/dl (65-105)
[2022-09-17 22:00] VITALS: BP 126/86; PULSE 83; RESP 18; TEMP 36.4; O2SAT 97
[2022-09-18 00:51] LABS: Glucose Point of Care 155 mg/dl (65-105)
[2022-09-18] MEDS: HYDROmorphone HCL INJ (*CRX) 1 MG/ML SYR IV PUSH ×4 (02:41→18:01)
[2022-09-18] MEDS: KCL 20 MEQ/D5/0.9% SOD CHL 1,000 ML 70 ML IV CONT ×2 (03:07→18:02)
[2022-09-18 05:28] LABS: Basophils Absolute Auto 0.1 K/mm3 (0.0-0.1); Eosinophils Absolute Auto 0.2 K/mm3 (0-0.3); Eosinophils Percent Auto 1.8 % (0-4.4); Hematocrit 40.3 % (37.0-47.0); Hemoglobin 13.3 g/dL (12.0-15.0); Immature Granulocyte Absolute 0.03 K/mm3 (0.00-0.031); Immature Granulocyte Percent A 0.4 % (0-0.5); Lymphocytes Absolute Auto 1.67 K/mm3 (0.9-3.2); Lymphocytes Percent Auto 20.2 % (18.3-44.2); Mean Corpuscular Hemoglobin 29.2 pg (26-34); Mean Corpuscular Volume 88.6 fl (80-100); Mean Platelet Volume 9.2 fl (7.4-10.4); Monocytes Absolute Auto 0.7 K/mm3 (0.1-0.6); Monocytes Percent Auto 8.7 % (2.6-8.5); Neutrophils Absolute Auto 5.6 K/mm3 (1.3-6.7); Neutrophils Percent Auto 67.9 % (45.5-73.1); Platelet Count Result 299 k/mm3 (150-375); Red Blood Count 4.55 M/mm3 (4.2-5.4); Red Cell Distribution Width 12.2 % (11.5-14.5); White Blood Count 8.3 K/mm3 (4.5-10.0)
[2022-09-18 06:00] VITALS: BP 141/88; PULSE 71; RESP 20; TEMP 36.3; O2SAT 98
[2022-09-18 06:10] LABS: Glucose Point of Care 110 mg/dl (65-105)
[2022-09-18 06:42] LABS: Alanine Aminotransferase 146 U/L (6-35); Albumin Level 4.3 g/dL (3.5-5.1); Alkaline Phosphatase 105 U/L (38-126); Anion Gap 7 mmol/L (8-16); Aspartate Amino Transferase 195 U/L (14-36); Bilirubin,Total 0.6 mg/dL (0.2-1.3); Blood Urea Nitrogen 10 mg/dL (7-17); Calcium 9.1 mg/dL (8.4-10.2); Carbon Dioxide 29 mmol/L (22-30); Chloride 102 mmol/L (98-107); Estimated CRCL calculation 102 ml/min; Estimated Glomerular Filt Rate > 60; Glucose 114 mg/dL (65-110); Magnesium 2.1 mg/dL (1.6-2.3); Phosphorus 4.3 mg/dL (2.5-4.5); Potassium 4.2 mmol/L (3.4-5.0); Sodium 138 mmol/L (137-145); Triglycerides 114 mg/dL (<150)
[2022-09-18] MEDS: CENTRAL LINE FLUSH 10 ML IV PUSH ×3 (07:43→20:18)
[2022-09-18] MEDS: FAMOTIDINE 20 MG/2 ML VIAL IV PUSH ×2 (08:35→20:17)
[2022-09-18] MEDS: ENOXAPARIN 40 MG/0.4 ML SYRINGE SUB-Q (08:35)
--- NOTE | 2022-09-18 09:00 | WPDANESEPPF ---
Anes - Initial Pre Proc Eval Procedure: Operation Date: 09/18/22 14:30 Proposed Procedures p Exploratory Laparotomy For Small Bowel Obstruction - Nilo Tian MD Date/Time: 09/18/22 09:00 Surgeon: Mehreen Barrios PA-C Pre Op Diagnosis: Small Bowel Obstruction Patient Data Age: 41 Gender: F Height: 1.6 m Weight: 69.1 kg Last Vital Signs Temp 36.3 C L 09/18/22 06:00 Pulse 71 09/18/22 06:00 Resp 20 09/18/22 06:00 BP 141/88 H 09/18/22 06:00 Pulse Ox 98 09/18/22 06:00 O2 Del Method Room Air 09/17/22 08:45 Allergies Allergy/AdvReac Type Severity Reaction Status Date / Time No Known Allergies Allergy Verified 09/14/22 20:22 Home Medications Medication Instructions Recorded Confirmed Type No Home Medications 09/15/22 09/15/22 History Laboratory Tests 09/17/22 09/17/22 09/17/22 05:23 11:27 18:15 WBC RBC Hgb Hct MCV MCH MCHC RDW Plt Count MPV Immature Gran % (Auto) Neut % (Auto) Lymph % (Auto) [place] % (Auto) Eos % (Auto) Baso % (Auto) Lymph # (Auto) [place] # (Auto) Eos # (Auto) Baso # (Auto) Abs Immat Gran (auto) Absolute Neuts (auto) Absolute Nucleated RBC Nucleated RBC % APTT 30.3 SECONDS SECONDS (22.3-36.8) Sodium Potassium Chloride Carbon Dioxide Anion Gap BUN Creatinine Estim Creat Clear Calc Estimated GFR Glucose POC Capillary Glucose 124 mg/dl H mg/dl (65-105) Calcium Phosphorus Magnesium Transferrin 235 mg/dL mg/dL (206-381) Total Bilirubin AST ALT Alkaline Phosphatase Total Protein Albumin Triglycerides 09/18/22 09/18/22 09/18/22 00:38 05:14 05:14 WBC 8.3 K/mm3 K/mm3 (4.5-10.0) RBC 4.55 M/mm3 M/mm3 (4.2-5.4) Hgb 13.3 g/dL g/dL (12.0-15.0) Hct 40.3 % % (37.0-47.0) MCV 88.6 fl fl (80-100) MCH 29.2 pg pg (26-34) MCHC 33.0 g/dl g/dl (32-36) RDW 12.2 % % (11.5-14.5) Plt Count 299 k/mm3 k/mm3 (150-375) MPV 9.2 fl fl (7.4-10.4) Immature Gran % (Auto) 0.4 % % (0-0.5) Neut % (Auto) 67.9 % % (45.5-73.1) Lymph % (Auto) 20.2 % % (18.3-44.2) [place] % (Auto) 8.7 % H % (2.6-8.5) Eos % (Auto) 1.8 % % (0-4.4) Baso % (Auto) 1.0 % % (0.2-1.2) Lymph # (Auto) 1.67 K/mm3 K/mm3 (0.9-3.2) [place] # (Auto) 0.7 K/mm3 H K/mm3 (0.1-0.6) Eos # (Auto) 0.2 K/mm3 K/mm3 (0-0.3) Baso # (Auto) 0.1 K/mm3 K/mm3 (0.0-0.1) Abs Immat Gran (auto) 0.03 K/mm3 K/mm3 (0.00-0.031) Absolute Neuts (auto) 5.6 K/mm3 K/mm3 (1.3-6.7) Absolute Nucleated RBC 0.0 K/mm3 K/mm3 (0.0-0.012) Nucleated RBC % 0.0 % % (0.0-0.2) APTT Sodium Potassium Chloride Carbon Dioxide Anion Gap BUN Creatinine Estim Creat Clear Calc Estimated GFR Glucose POC Capillary Glucose 155 mg/dl H mg/dl (65-105) Calcium Phosphorus Magnesium Transferrin Total Bilirubin AST ALT Alkaline Phosphatase Total Protein Albumin Triglycerides Cancelled 09/18/22 09/18/22 06:01 06:13 WBC RBC Hgb
[2022-09-18] MEDS: ONDANSETRON INJ 4 MG/2 ML VIAL IV PUSH (11:02)
[2022-09-18 11:03] VITALS: BP 124/87; PULSE 102; RESP 18; TEMP 36.8; O2SAT 96
--- NOTE | 2022-09-18 11:44 | PM.PNGS ---
Progress Note: A&P Assessment and Plan (1) SBO (small bowel obstruction): Code(s): K56.609 - Unspecified intestinal obstruction, unspecified as to partial versus complete obstruction Status: Acute Assessment and Plan: Still having abdominal pain and no bowel function this morning. KUB daily shows normal bowel gas pattern. Water soluble small bowel follow through was ordered and is in the process now, await results. Continue TPN/IV fluids, bowel rest, and analgesics as needed for now. She was tentatively added on the surgery schedule this afternoon for possible exploratory laparotomy depending on the SBFT results. Plan I have discussed the patient's case and plan of care with Dr. Tian. Subjective Subjective Date/Time Seen: 09/18/22 11:44 Patient reports: still having pain, nausea and vomiting Interval history: Patient back in the room after going down to Radiology for a water soluble SBFT. She reports vomiting down in radiology this morning and having a significant amount of abdominal pain similar to when she came into the ER, that occurred right after receiving the contrast. She has had 2 small liquid stools since being back up in the room from the SBFT. Review of Systems Review of Systems: All systems reviewed & are unremarkable except as noted in HPI and below Exam Const: General: no acute distress and uncomfortable Orientation/consciousness: patient oriented x3 GI: Inspection: non-distended GI Palp: Yes Soft to palpation, Yes Tenderness to palpation present (GI) (diffusely tender), No Guarding due to palpation present (GI) and No Rebound tenderness present Auscultation: normal bowel sounds Extrem: General: no calf tenderness and no edema Psych: Thought process: Normal thought process present Insight: Good insight present (Psych) Objective Data Vital Signs Vital Signs: Vital Signs - 24 hr 09/17/22 14:00 09/17/22 22:00 09/18/22 06:00 Temperature 99.2 F 97.6 F 97.3 F L Pulse Rate 70 83 71 Respiratory Rate 17 18 20 Blood Pressure 147/85 H 126/86 141/88 H Pulse Oximetry 98 97 98 Oxygen Delivery 09/18/22 08:40 09/18/22 11:03 Temperature 98.3 F Pulse Rate 102 H Respiratory Rate 18 Blood Pressure 124/87 Pulse Oximetry 96 Oxygen Delivery Room Air Intake/Output Intake/Output: Intake & Output 01/0209/16/22 09/17/22 09/18/22 23:59 23:59 23:59 23:59 Intake Total 19990 1250 Output Total 200 2951 1950 1650 Balance 1800 -931 300 -400 Meds/Results Medications: Active Medications Generic Name Dose Route Start Last Admin Trade Name Freq PRN Reason Stop Dose Admin Dextrose 12.5 gm 09/17/22 17:53 Dextrose 50% 25 Gm/50 Ml Syringe IV PUSH PRN PRN Hypoglycemia Protocol Enoxaparin Sodium 40 mg 09/15/22 09:00 09/18/22 08:35 Enoxaparin 40 Mg/0.4 Ml Syringe SUB-Q 40 mg DAILY WILEY Administration Famotidine 20 mg 09/15/22 21:00 09/18/22 08:35 Famotidine 20 Mg/2 Ml Vial IV PUSH 20 mg Q12HR WILEY Administration Fentanyl Citrate 25 mcg 09/18/22 09:00 Fentanyl Citrate Inj (*Crx) 100 Mcg/2 Ml Vial IV PUSH Q2M PRN Pain Glucagon 1 mg 09/17/22 17:53 Glucagon For Inj 1 Mg Vial IM PRN PRN Hypoglycemia Protocol Glucose 15 gm 09/17/22 17:53 Glucose Oral Gel 15 Gm Of Glucse In 37.5 Gm Tube PO PRN PRN Hypoglycemia Protocol Hydromorphone HCl 1 mg 09/15/22 08:50 09/18/22 07:45 Hydromorphone Hcl Inj (*Crx) 1 Mg/Ml Syr IV PUSH 1 mg Q3H PRN Administration Pain Rated 7-10 Hydromorphone HCl 0.5 mg 09/15/22 09:05 09/16/22 13:38 Hydromorphone Hcl Inj (*Crx) 1 Mg/Ml Syr IV PUSH 0.5 mg Q2H PRN Administration Pain Rated 4-6 Ibuprofen 800 mg in 200 mls @ 400 mls/hr 09/15/22 09:05 09/17/22 03:05 Caldolor 800 Mg/200 Ml IVPB Infused Q6H PRN Infusion Pain Rated 1-3 Potassium Chloride/Dextrose/Sod Cl 1,000 mls @ 70 mls/hr 09/15/22 10:00 0
[2022-09-18 12:19] LABS: Glucose Point of Care 179 mg/dl (65-105)
[2022-09-18] MEDS: FAT EMULSIONS IV 20% 250 ML 20.83 ML IVPB (12:47)
[2022-09-18] MEDS: AMINO ACIDS 5%/D15W/E-LYTES/CA 2,000 ML with MULTIVITAMINS-12 INJ VIAL 1 2.5 ML, MULTIV... 60 ML IV CONT (12:48)
--- NOTE | 2022-09-18 16:17 | WPDGICN ---
Assessment and Plan Assessment and plan (1) Abdominal pain: Code(s): R10.9 - Unspecified abdominal pain Status: Acute Assessment and Plan: the pain is rather diffuse and bilateral which is perplexing, given the fairly normal radiographs except for the initial CT scan. (2) SBO (small bowel obstruction): Code(s): K56.609 - Unspecified intestinal obstruction, unspecified as to partial versus complete obstruction Status: Acute Assessment and Plan: Small-bowel series today does not show obstruction. I am concerned however that the findings on CT scan could represent regional enteritis that may not have been seen on the water contrast study today I will obtain serology for inflammatory bowel disease will get fecal calprotectin, C reactive protein (3) History of incisional hernia repair: Code(s): Z98.890 - Other specified postprocedural states; Z87.19 - Personal history of other diseases of the digestive system Status: Acute Assessment and Plan: given the fact she has had multiple abdominal operations including appendectomy cholecystectomy, she is certainly at risk for obstruction due to adhesions. We will need to advance her diet slowly, as tolerated GI Consult Note Consult date/time: 09/18/22 16:17 HPI: Sara Aviles is a 41 year old female presented to the emergency room a few days agowith complaints of nausea vomiting and abdominal pain.? Patient has had the sharp stabbing abdominal pain issues over last couple days with a few episodes of diarrhea.? Of note patient has a history of hysterectomy, cholecystectomy, appendectomy, hernia repair x6. She had a partial small bowel obstruction 4 years ago that resolved without surgery. She has no history of inflammatory bowel disease. CT scan of the abdomen revealed: 1. Small bowel obstruction with transition point in distal ileum. 2. Small volume of ascites. 3. Widemouthed ventral hernia containing small and large bowel. She states that her symptoms began last Thursday when she developed severe abdominal pain and then had some diarrhea. She was feeling fairly good the next day until she went to [employer] to eat. During that meal she again got severe stabbing pain and was not able to eat anymore. Thursday she was miserable with pain that was almost constant and present throughout her abdomen. She also felt quite distended. She came to the emergency room where she was diagnosed with small-bowel obstruction. NG tube was placed and has been in place until this afternoon after she had a small bowel series that was negative for obstruction. While the small bowel series was in progress she vomited. She subsequently had some loose stools after the x-ray as well. She denies any chronic abdominal pain. She had diverticulitis with resection several years ago. She has lost some weight recently. There is no family history of inflammatory bowel disease. He was tentatively scheduled for exploratory surgery today for suspected obstruction but now the small bowel series seems to have ruled that out. She has had clear liquids this afternoon with no vomiting. . She did not have any fever recently. Review of Systems Review of Systems: All systems reviewed & are unremarkable except as noted in HPI and below PMFSH Past Medical History Medical History Acute diverticulitis resolved after sigmoidectomy in 2020 Overweight (BMI 25.0-29.9) Right ureteral stone Surgical History Surgical History (Updated 09/18/22 @ 17:18 by Davis Calhoun MD) History of appendectomy laparoscopic appendectomy February 2021 History of cholecystectomy 2010, laparoscopic History of hysterectomy 2013, ovaries removed each year the next 2 years History of incisional hernia repair laparoscopic incisional hernia repair July 2021 [facility] S/P laparoscopic-assisted sigmoidectomy February 2021
--- NOTE | 2022-09-18 16:26 | PM.IMPN ---
Progress Note: A&P Assessment and Plan (1) SBO (small bowel obstruction): Code(s): K56.609 - Unspecified intestinal obstruction, unspecified as to partial versus complete obstruction Status: Acute Assessment and Plan: History of significant abdominal surgeries including hysterectomy, cholecystectomy, appendectomy, partial colon resection. CTA on admission showed small bowel obstruction without perforation or abscess. Appreciate general surgery consultation. completed small-bowel follow-through today which showed normal transit time from stomach to colon of 30-45 minutes. NGT tube removed per General surgery recommendations and started on clear liquids. Continue supportive care. Antiemetics as needed (2) Abdominal pain: Code(s): R10.9 - Unspecified abdominal pain Status: Acute Assessment and Plan: Initially felt to be related to SBO, however worsened pain today following resolution of obstruction. appreciate GI recommendations. Analgesics and antiemetics available as needed. Continue clear liquids Subjective Date/time seen: 09/18/22 16:26 Interval history: date of service: 09/18/2022 patient seen in follow-up for small bowel obstruction. she is feeling poorly today. She was seen after her small-bowel follow-through study which caused her to developed nausea and have 1 episode of emesis. She has abdominal pain that she states feels like contractions of her abdomen. She rates this as 8/10. She feels bloated. She also endorses chills but denies fever. She has a headache. Denies shortness of breath or cough. Continues to endorse sore throat secondary to NG tube. Review of Systems Review of Systems: All systems reviewed & are unremarkable except as noted in HPI and below Exam Narrative: General: Well-nourished, well-appearing 41-year-old female, sitting up in bed, NARD Neuro: awake, alert and oriented x4, speech clear, no focal neuro deficits noted HEENMT: normocephalic, atraumatic, EOMI, sclerae anicteric Respiratory: clear to auscultation bilaterally, nonlabored breathing Cardio: regular rate, regular rhythm with S1-S2 Abdomen: protuberant, hypoactive bowel sounds, soft, mildly tender to palpation in periumbilical region Extremities: no edema, erythema, or tenderness to palpation, DP pulses 2+ bilaterally Skin: no rashes or lesions, warm and dry Psych: appropriate mood and affect, judgment and insight intact Objective Data Vital Signs Vital Signs: Vital Signs - 24 hr 09/17/22 22:00 09/18/22 06:00 09/18/22 08:40 Temperature 97.6 F 97.3 F L Pulse Rate 83 71 Respiratory Rate 18 20 Blood Pressure 126/86 141/88 H Pulse Oximetry 97 98 Oxygen Delivery Room Air 09/18/22 11:03 09/18/22 11:03 Temperature 98.3 F 98.3 F Pulse Rate 102 H 102 H Respiratory Rate 18 18 Blood Pressure 124/87 124/87 Pulse Oximetry 96 96 Oxygen Delivery Intake/Output Intake/Output: Intake & Output 09/15/22 09/16/22 09/17/22 09/18/22 23:59 23:59 23:59 23:59 Intake Total 19996 Output Total 200 2951 1950 1999 Balance 1800 -931 300 606 Meds/Results Medications: Active Medications Generic Name Dose Route Start Last Admin Trade Name Freq PRN Reason Stop Dose Admin Dextrose 12.5 gm 09/17/22 17:53 Dextrose 50% 25 Gm/50 Ml Syringe IV PUSH PRN PRN Hypoglycemia Protocol Enoxaparin Sodium 40 mg 09/15/22 09:00 09/18/22 08:35 Enoxaparin 40 Mg/0.4 Ml Syringe SUB-Q 40 mg DAILY WILEY Administration Famotidine 20 mg 09/15/22 21:00 09/18/22 08:35 Famotidine 20 Mg/2 Ml Vial IV PUSH 20 mg Q12HR WILEY Administration Fentanyl Citrate 25 mcg 09/18/22 09:00 Fentanyl Citrate Inj (*Crx) 100 Mcg/2 Ml Vial IV PUSH Q2M PRN Pain Glucagon 1 mg 09/17/22 17:53 Glucagon For Inj 1 Mg Vial IM PRN PRN Hypoglycemia Protocol Glucose 15 gm 09/17/22 17:53 Glucose Oral Gel 15 Gm Of Glucse
[2022-09-18 18:03] LABS: CRP 0.7 mg/dL (<1.0)
[2022-09-18 18:12] LABS: Glucose Point of Care 157 mg/dl (65-105)
[2022-09-18] MEDS: IBUPROFEN IV 800 MG/200 ML 800 MG/200 ML BAG 400 MG IVPB (20:16)
[2022-09-18 20:54] VITALS: BP 114/69; PULSE 73; RESP 14; TEMP 36.4; O2SAT 97
[2022-09-19 00:13] LABS: Glucose Point of Care 135 mg/dl (65-105)
[2022-09-19] MEDS: IBUPROFEN IV 800 MG/200 ML 800 MG/200 ML BAG 400 MG IVPB ×2 (05:15→18:18)
[2022-09-19] MEDS: CENTRAL LINE FLUSH 10 ML IV PUSH ×3 (05:18→21:03)
[2022-09-19 05:36] VITALS: BP 101/70; PULSE 61; RESP 16; TEMP 36.6; O2SAT 100
[2022-09-19 06:54] LABS: Anion Gap 3 mmol/L (8-16); Blood Urea Nitrogen 17 mg/dL (7-17); Calcium 8.3 mg/dL (8.4-10.2); Carbon Dioxide 28 mmol/L (22-30); Chloride 103 mmol/L (98-107); Estimated CRCL calculation 115 ml/min; Estimated Glomerular Filt Rate > 60; Glucose 97 mg/dL (65-110); Potassium 4.9 mmol/L (3.4-5.0); Sodium 134 mmol/L (137-145)
--- NOTE | 2022-09-19 07:00 | WPDGIPROGNO ---
Progress Note: A&P Assessment and Plan (1) Abdominal pain: Code(s): R10.9 - Unspecified abdominal pain Status: Acute Assessment and Plan: the pain is rather diffuse and bilateral which is perplexing, given the fairly normal radiographs except for the initial CT scan. (2) SBO (small bowel obstruction): Code(s): K56.609 - Unspecified intestinal obstruction, unspecified as to partial versus complete obstruction Status: Acute Assessment and Plan: Small-bowel series today does not show obstruction. I am concerned however that the findings on CT scan could represent regional enteritis that may not have been seen on the water contrast study today I will obtain serology for inflammatory bowel disease will get fecal calprotectin, C reactive protein (3) History of incisional hernia repair: Code(s): Z98.890 - Other specified postprocedural states; Z87.19 - Personal history of other diseases of the digestive system Status: Acute Assessment and Plan: given the fact she has had multiple abdominal operations including appendectomy cholecystectomy, she is certainly at risk for obstruction due to adhesions. We will need to advance her diet slowly, as tolerated today she is willing to try a full liquid diet. She states that she kept a clear liquids down last night without any significant problem Subjective Date/time seen: 09/19/22 07:00 she is feeling better today. The pain has subsided. She is not that hungry but did keep clear liquids down. We talked about trying to advance her and she is willing to try full liquids this morning. Her stool was collected last night for calprotectin. I discussed with her the fact that if she does well with eating we could have her go home and continue workup as an outpatient for possible inflammatory bowel disease. Review of Systems Review of Systems: All systems reviewed & are unremarkable except as noted in HPI and below Exam Const: General: alert Orientation/consciousness: patient oriented x3 Resp: Auscultation: clear to auscultation bilaterally Cardio: Rhythm: regular rhythm GI: GI Palp: Yes Soft to palpation, Yes Tenderness to palpation present (GI), No Guarding due to palpation present (GI) and No Rebound tenderness present Auscultation: normal bowel sounds Neuro: General: patient oriented x3 Extrem: General: no calf tenderness and no edema Psych: Affect: normal affect Insight: Good insight present (Psych) Judgement: Good judgement present (Psych) Objective Data Vital Signs Vital Signs: Vital Signs - 24 hr 09/18/22 08:40 09/18/22 11:03 09/18/22 11:03 Temperature 36.8 C 36.8 C Pulse Rate 102 H 102 H Respiratory Rate 18 18 Blood Pressure 124/87 124/87 Pulse Oximetry 96 96 Oxygen Delivery Room Air 09/18/22 20:54 09/18/22 20:00 09/19/22 05:36 Temperature 36.4 C 36.6 C Pulse Rate 73 61 Respiratory Rate 14 16 Blood Pressure 114/69 101/70 Pulse Oximetry 97 100 Oxygen Delivery Room Air Intake/Output Intake/Output: Intake & Output 09/16/22 09/17/22 09/18/22 09/19/22 23:59 23:59 23:59 23:59 Intake Total 2019 2250 4166 450 Output Total 2951 1950 1999 Balance -593 262 2321 450 Meds/Results Medications: Active Medications Generic Name Dose Route Start Last Admin Trade Name Freq PRN Reason Stop Dose Admin Dextrose 12.5 gm 09/17/22 17:53 Dextrose 50% 25 Gm/50 Ml Syringe IV PUSH PRN PRN Hypoglycemia Protocol Enoxaparin Sodium 40 mg 09/15/22 09:00 09/18/22 08:35 Enoxaparin 40 Mg/0.4 Ml Syringe SUB-Q 40 mg DAILY WILEY Administration Famotidine 20 mg 09/15/22 21:00 09/18/22 20:17 Famotidine 20 Mg/2 Ml Vial IV PUSH 20 mg Q12HR WILEY Administration Fentanyl Citrate 25 mcg 09/18/22 09:00 Fentanyl Citrate Inj (*Crx) 100 Mcg/2 Ml Vial IV PUSH Q2M PRN Pain Glucagon 1 mg 09/17/22 17:53 Glucagon For Inj 1 Mg Vial IM PRN PRN
[2022-09-19 07:22] LABS: Glucose Point of Care 117 mg/dl (65-105)
[2022-09-19] MEDS: FAMOTIDINE 20 MG/2 ML VIAL IV PUSH ×2 (08:07→21:03)
[2022-09-19] MEDS: ENOXAPARIN 40 MG/0.4 ML SYRINGE SUB-Q (08:07)
[2022-09-19] MEDS: KCL 20 MEQ/D5/0.9% SOD CHL 1,000 ML 70 ML IV CONT (08:17)
[2022-09-19] MEDS: traMADol HCL (*CRX) 25 MG TABLET PO (08:17)
[2022-09-19 10:02] LABS: Hematocrit 37.2 % (37.0-47.0); Hemoglobin 12.6 g/dL (12.0-15.0); Mean Corpuscular HGB Conc 33.9 g/dl (32-36); Mean Corpuscular Hemoglobin 29.3 pg (26-34); Mean Corpuscular Volume 86.5 fl (80-100); Mean Platelet Volume 9.1 fl (7.4-10.4); Platelet Count Result 289 k/mm3 (150-375); Red Cell Distribution Width 12.2 % (11.5-14.5); White Blood Count 6.4 K/mm3 (4.5-10.0)
--- NOTE | 2022-09-19 10:25 | PCNFU ---
Nutrition Follow-Up Complete: Inadequate energy intake related to NPO status and altered GI function as evidenced by current diet order and dx. goal: Diet advancement when appropriate patient is progressing towards goal. We will continue current goal. Pt current nutrition is Full Liquids/TPN. Last recorded weight is 69.1 kg. Bowel Motility:+BM reported 09/18 Labs Reviewed:Cr 0.5, Na 134 Meds Noted:Clinimix 5/15 at 60 ml/hr with 250 ml of 20% Lipid Emulsion. Skin: WNL Additional Notes: Patient seen today for nutrition follow up. Eating full liquids tray, tolerating so far. TPN providing an additional 1522 kcals and 72 gms protein. Discussed diet supplements for additional kcal and proteins. Orders for Ensure Enlive BID for additional 350 kcals and 20 gms protein. Recommend advancing diet as tolerated per MD orders. Monitor for diet order, intake, wt, labs every 3 days.
[2022-09-19] MEDS: HYDROmorphone HCL INJ (*CRX) 1 MG/ML SYR 0.5 MG IV PUSH (11:41)
[2022-09-19 12:22] LABS: Glucose Point of Care 88 mg/dl (65-105)
[2022-09-19] MEDS: AMINO ACIDS 5%/D15W/E-LYTES/CA 2,000 ML with MULTIVITAMINS-12 INJ VIAL 1 2.5 ML, MULTIV... 60 ML IV CONT (13:18)
[2022-09-19] MEDS: FAT EMULSIONS IV 20% 250 ML 20.83 ML IVPB (13:20)
[2022-09-19 13:46] VITALS: BP 109/72; PULSE 77; RESP 18; TEMP 36.6; O2SAT 97
--- NOTE | 2022-09-19 14:36 | PM.PNGS ---
Progress Note: A&P Assessment and Plan (1) Abdominal pain: Code(s): R10.9 - Unspecified abdominal pain Status: Acute Assessment and Plan: Etiology unclear. Appreciate Dr. Calhoun seeing the patient and evaluating. With results of small-bowel follow-through from yesterday, patient clearly does not have small-bowel obstruction despite initial CT scan findings. I will sign off on the patient. Please call if can be of further assistance. Although the CT scan suggested a wide mouth ventral hernia. This looks more like a diastasis to me and is unlikely to have any relevance with her present illness. I would be happy to see her as an outpatient if further evaluation of recurrent ventral hernia is needed. Subjective Subjective Date/Time Seen: 09/19/22 14:36 Patient reports: feels better, tolerating liquids well, bowel movement and afebrile Review of Systems Review of Systems: All systems reviewed & are unremarkable except as noted in HPI and below (HPI and those items noted below) Constitutional: Constitutional: Denies chills and Denies fever(s) Cardiovascular: Cardiovascular: Denies chest pain, Denies diaphoresis, Denies dyspnea and Denies paroxysmal nocturnal dyspnea Respiratory: Respiratory: Denies chest congestion, Denies cough and Denies dyspnea Integumentary/Breasts: Skin/Breast: Denies lesions and Denies rash Exam Const: General: comfortable and no acute distress; No confusion Orientation/consciousness: patient oriented x3 and No confusion GI: GI Palp: Yes Soft to palpation, Yes Tenderness to palpation present (GI), No Guarding due to palpation present (GI) and No Rebound tenderness present Auscultation: normal bowel sounds Neuro: General: patient oriented x3, no focal motor deficits and No confusion Extrem: General: no calf tenderness and no edema Psych: Affect: normal affect Insight: Good insight present (Psych) Judgement: Good judgement present (Psych) Objective Data Vital Signs Vital Signs: Vital Signs - 24 hr 09/18/22 20:54 09/18/22 20:00 09/19/22 05:36 Temperature 36.4 C 36.6 C Pulse Rate 73 61 Respiratory Rate 14 16 Blood Pressure 114/69 101/70 Pulse Oximetry 97 100 Oxygen Delivery Room Air 09/19/22 08:20 Temperature Pulse Rate Respiratory Rate Blood Pressure Pulse Oximetry Oxygen Delivery Room Air Intake/Output Intake/Output: Intake & Output 09/16/22 09/17/22 09/18/22 09/19/22 23:59 23:59 23:59 23:59 Intake Total 2019 5960 4166 2853 Output Total 2951949 Balance -142 843 0702 2851 Meds/Results Medications: Active Medications Generic Name Dose Route Start Last Admin Trade Name Freq PRN Reason Stop Dose Admin Dextrose 12.5 gm 09/17/22 17:53 Dextrose 50% 25 Gm/50 Ml Syringe IV PUSH PRN PRN Hypoglycemia Protocol Enoxaparin Sodium 40 mg 09/15/22 09:00 09/19/22 08:07 Enoxaparin 40 Mg/0.4 Ml Syringe SUB-Q 40 mg DAILY WILEY Administration Famotidine 20 mg 09/15/22 21:00 09/19/22 08:07 Famotidine 20 Mg/2 Ml Vial IV PUSH 20 mg Q12HR WILEY Administration Fentanyl Citrate 25 mcg 09/18/22 09:00 Fentanyl Citrate Inj (*Crx) 100 Mcg/2 Ml Vial IV PUSH Q2M PRN Pain Glucagon 1 mg 09/17/22 17:53 Glucagon For Inj 1 Mg Vial IM PRN PRN Hypoglycemia Protocol Glucose 15 gm 09/17/22 17:53 Glucose Oral Gel 15 Gm Of Glucse In 37.5 Gm Tube PO PRN PRN Hypoglycemia Protocol Hydromorphone HCl 1 mg 09/15/22 08:50 09/18/22 18:01 Hydromorphone Hcl Inj (*Crx) 1 Mg/Ml Syr IV PUSH 1 mg Q3H PRN Administration Pain Rated 7-10 Hydromorphone HCl 0.5 mg 09/15/22 09:05 09/19/22 11:41 Hydromorphone Hcl Inj (*Crx) 1 Mg/Ml Syr IV PUSH 0.5 mg Q2H PRN Administration Pain Rated 4-6 Ibuprofen 800 mg in 200 mls @ 400 mls/hr 09/15/22 09:05 09/19/22 05:45 Caldolor 800 Mg/200 Ml IVPB Infused Q6H PRN Infusion Pain Rated 1-3 Potas
--- NOTE | 2022-09-19 17:07 | PM.IMPN ---
Progress Note: A&P Assessment and Plan (1) SBO (small bowel obstruction): Code(s): K56.609 - Unspecified intestinal obstruction, unspecified as to partial versus complete obstruction Status: Acute Assessment and Plan: History of significant abdominal surgeries including hysterectomy, cholecystectomy, appendectomy, partial colon resection. CTA on admission showed small bowel obstruction without perforation or abscess. Appreciate general surgery consultation. completed small-bowel follow-through on 09/18 which showed normal transit time from stomach to colon of 30-45 minutes. NG tube removed per General surgery recommendations on 09/18. she has advanced to full liquid diet and is tolerating well. discontinue TPN. Does complain of increased bloating and pain today. Continue supportive care. Antiemetics as needed (2) Abdominal pain: Code(s): R10.9 - Unspecified abdominal pain Status: Acute Assessment and Plan: Initially felt to be related to SBO, however worsened pain yesterday following resolution of obstruction. patient has been seen in consultation by GI. Laboratory workup for IBD is pending. Will proceed with repeat KUB today given ongoing pain and bloating. Continue analgesics antiemetics as needed. Continue with full liquid diet and advance as tolerated Subjective Date/time seen: 09/19/22 17:07 Interval history: date of service: 09/19/2022 patient seen in follow-up for small bowel obstruction. she complains of worsened abdominal bloating today. States her abdomen has become more full throughout the day and notes increased firmness. Pain became worse after she went for a walk around the unit this afternoon. Describes the pain as cramping/stabbing in nature. Has had loose, liquid stools today. Denies blood in her stools. She is tolerating full liquid diet. She denies nausea or vomiting. She does feel little dizzy which she believes is due to the pain. Denies chest pain, palpitations, fever, chills Review of Systems Review of Systems: All systems reviewed & are unremarkable except as noted in HPI and below Exam Narrative: General: Well-nourished, well-appearing 41-year-old female, sitting up in bed, NARD Neuro: awake, alert and oriented x4, speech clear, no focal neuro deficits noted HEENMT: normocephalic, atraumatic, EOMI, sclerae anicteric Respiratory: clear to auscultation bilaterally, nonlabored breathing Cardio: regular rate, regular rhythm with S1-S2 Abdomen: distended, normoactive bowel sounds, soft, tender to palpation across lower abdomen Extremities: no edema, erythema, or tenderness to palpation, DP pulses 2+ bilaterally Skin: no rashes or lesions, warm and dry Psych: appropriate mood and affect, judgment and insight intact Objective Data Vital Signs Vital Signs: Vital Signs - 24 hr 09/18/22 20:54 09/18/22 20:00 09/19/22 05:36 Temperature 97.6 F 97.8 F Pulse Rate 73 61 Respiratory Rate 14 16 Blood Pressure 114/69 101/70 Pulse Oximetry 97 100 Oxygen Delivery Room Air 09/19/22 08:20 09/19/22 13:46 Temperature 97.8 F Pulse Rate 77 Respiratory Rate 18 Blood Pressure 109/72 Pulse Oximetry 97 Oxygen Delivery Room Air Intake/Output Intake/Output: Intake & Output 09/16/22 09/17/22 09/18/22 09/19/22 23:59 23:59 23:59 23:59 Intake Total 2019 2250 4166 3093 Output Total 2951 1950 2000 Balance -978 996 7076 3093 Meds/Results Medications: Active Medications Generic Name Dose Route Start Last Admin Trade Name Freq PRN Reason Stop Dose Admin Dextrose 12.5 gm 09/17/22 17:53 Dextrose 50% 25 Gm/50 Ml Syringe IV PUSH PRN PRN Hypoglycemia Protocol Enoxaparin Sodium 40 mg 09/15/22 09:00 09/19/22 08:07 Enoxaparin 40 Mg/0.4 Ml Syringe SUB-Q 40 mg DAILY WILEY Administration Famotidine 20 mg 09/15/22 21:00 09/19/22 08:07 Famotidine 20 Mg/2 Ml Vial IV PUSH 20 mg Q12HR WILEY Ad
[2022-09-19 17:53] LABS: Glucose Point of Care 119 mg/dl (65-105)
[2022-09-19 19:39] VITALS: BP 114/70; PULSE 79; RESP 18; TEMP 36.4; O2SAT 100
[2022-09-20 04:22] VITALS: BP 106/64; PULSE 77; RESP 18; TEMP 36.5; O2SAT 98
[2022-09-20] MEDS: traMADol HCL (*CRX) 25 MG TABLET PO ×3 (05:28→18:55)
[2022-09-20] MEDS: CENTRAL LINE FLUSH 10 ML IV PUSH ×3 (05:28→21:08)
[2022-09-20 05:39] LABS: Hematocrit 39.4 % (37.0-47.0); Hemoglobin 12.7 g/dL (12.0-15.0); Mean Corpuscular HGB Conc 32.2 g/dl (32-36); Mean Corpuscular Hemoglobin 28.9 pg (26-34); Mean Corpuscular Volume 89.5 fl (80-100); Mean Platelet Volume 9.4 fl (7.4-10.4); Platelet Count Result 302 k/mm3 (150-375); Red Cell Distribution Width 12.3 % (11.5-14.5); White Blood Count 6.4 K/mm3 (4.5-10.0)
[2022-09-20 05:47] LABS: Anion Gap 2 mmol/L (8-16); Blood Urea Nitrogen 11 mg/dL (7-17); Calcium 8.9 mg/dL (8.4-10.2); Carbon Dioxide 29 mmol/L (22-30); Chloride 105 mmol/L (98-107); Estimated CRCL calculation 98 ml/min; Estimated Glomerular Filt Rate > 60; Glucose 92 mg/dL (65-110); Sodium 136 mmol/L (137-145)
[2022-09-20] MEDS: ENOXAPARIN 40 MG/0.4 ML SYRINGE SUB-Q (08:35)
[2022-09-20] MEDS: FAMOTIDINE 20 MG/2 ML VIAL IV PUSH ×2 (08:35→21:08)
--- NOTE | 2022-09-20 10:13 | WPDGIPROGNO ---
Progress Note: A&P Assessment and Plan (1) Abdominal pain: Code(s): R10.9 - Unspecified abdominal pain Status: Acute Assessment and Plan: the pain is rather diffuse and bilateral which is perplexing, given the fairly normal radiographs except for the initial CT scan. (2) SBO (small bowel obstruction): Code(s): K56.609 - Unspecified intestinal obstruction, unspecified as to partial versus complete obstruction Status: Acute Assessment and Plan: Small-bowel series today does not show obstruction. I am concerned however that the findings on CT scan could represent regional enteritis that may not have been seen on the water contrast study today I will obtain serology for inflammatory bowel disease will get fecal calprotectin, C reactive protein 09/20/2022 I reviewed her old records. I saw that in 2018 she had a very similar, in fact almost identical presentation. Pain beginning after having been at [facility], a CT scan that showed possible ileitis verses SBO she did well with NG suction. She then had a colonoscopy which revealed normal terminal ileum, Ruling out Crohn's disease. She had followed up with Dr. Ayon in the office and it was felt that she did not have inflammatory bowel disease. I think therefore, there is still a possibility that she has partial small-bowel obstruction due to adhesions, particularly given the fact she has had extensive surgery. We are waiting calprotectin and IBD serology (3) History of incisional hernia repair: Code(s): Z98.890 - Other specified postprocedural states; Z87.19 - Personal history of other diseases of the digestive system Status: Acute Assessment and Plan: given the fact she has had multiple abdominal operations including appendectomy cholecystectomy, she is certainly at risk for obstruction due to adhesions. We will need to advance her diet slowly, as tolerated today she is willing to try a full liquid diet. She states that she kept a clear liquids down last night without any significant problem (4) Transaminitis: Code(s): R74.01 - Elevation of levels of liver transaminase levels Status: Acute Assessment and Plan: her LFTs were normal on admission and again on September 16. Two days ago however AST jumped to 195, ALT 146. I will recheck them today and get gamma GTP as well. She has no history of liver disease. The last time she had alcohol was on new year's. Plan I Shared with her the my findings. we went over all of her previous hospitalizations. She does recall now that the admission in 2018 was very similar. Between however she has had no significant problems, therefore it would be difficult to believe that this is due to inflammatory bowel disease. I also told her that although yesterday's KUB was read as unremarkable that there was significant increase in the amount of small bowel air. Therefore I am reluctant to advance her diet at this point. Time Spent With Patient Time with patient: Greater than 35 minutes Subjective Date/time seen: 09/20/22 10:13 Yesterday she was quite uncomfortable by mid afternoon, having had lunch. She was feeling much distended again. We did obtain a KUB which was interpreted as: nonspecific gas pattern. However compared to the previous day there is a significant increase in the amount of small bowel gas. Also gas is seen in the colon and she has been passing some gas per rectum. She is able to eat some of her full liquid diet but does not tolerate more than about half of it. having noted an elevation of her liver enzymes I asked her if she has ever had liver problems. She had not. The last time she had alcohol was on s Flor. Exam Const: General: alert Orientation/consciousness: patient oriented x3 Resp: Auscultation: clear to auscultation bilaterally Cardio: Rhythm: regular rhythm GI: GI Palp: Yes Soft to palpation, Yes Tenderness to palpat
[2022-09-20 13:44] VITALS: BP 110/73; PULSE 74; RESP 16; TEMP 36.4; O2SAT 99
[2022-09-20 14:53] LABS: CRP < 0.5 mg/dL (<1.0)
--- NOTE | 2022-09-20 15:22 | PM.IMPN ---
Progress Note: A&P Assessment and Plan (1) SBO (small bowel obstruction): Code(s): K56.609 - Unspecified intestinal obstruction, unspecified as to partial versus complete obstruction Status: Acute Assessment and Plan: History of significant abdominal surgeries including hysterectomy, cholecystectomy, appendectomy, partial colon resection. CTA on admission showed small bowel obstruction without perforation or abscess. Appreciate general surgery consultation. completed small-bowel follow-through on 09/18 which showed normal transit time from stomach to colon of 30-45 minutes. NG tube removed per General surgery recommendations on 09/18. she has advanced to full liquid diet and is tolerating well. TPN discontinued 09/19. Continues to complain of increased bloating and pain today. Continue supportive care. Antiemetics as needed (2) Abdominal pain: Code(s): R10.9 - Unspecified abdominal pain Status: Acute Assessment and Plan: Initially felt to be related to SBO, however worsened pain following resolution of obstruction. patient has been seen in consultation by GI. Laboratory workup for IBD is pending. KUB unremarkable, though Dr. Calhoun noted concerns for possible enteritis. Continue analgesics and antiemetics as needed. Continue with full liquid diet and advance slowly as tolerated (3) Transaminitis: Code(s): R74.01 - Elevation of levels of liver transaminase levels Status: Acute Assessment and Plan: LFTs normal on presentation with sharp increase on 09/18/22. Trending down today. Etiology unclear. Will evaluate hepatitis panel. Trend LFTs and continue to monitor Subjective Date/time seen: 09/20/22 15:22 Interval history: Date of service: 09/20/2022 Patient seen in follow-up for small bowel obstruction. She slept well last night and was starting to feel a bit better this morning. She ate breakfast this morning and felt she was very full afterwards like she was about to bust. She endorses pressure and cramping. She had a loose stool yesterday but no bowel movement today. Passing flatus. No nausea or vomiting. No fever or chills. No SOB or cough. Review of Systems Review of Systems: All systems reviewed & are unremarkable except as noted in HPI and below Exam Narrative: General: Well-nourished, well-appearing 41-year-old female, sitting up in bed, NARD Neuro: awake, alert and oriented x4, speech clear, no focal neuro deficits noted HEENMT: normocephalic, atraumatic, EOMI, sclerae anicteric Respiratory: clear to auscultation bilaterally, nonlabored breathing Cardio: regular rate, regular rhythm with S1-S2 Abdomen: distended, normoactive bowel sounds, soft, tender to palpation across lower abdomen Extremities: no edema, erythema, or tenderness to palpation, DP pulses 2+ bilaterally Skin: no rashes or lesions, warm and dry Psych: appropriate mood and affect, judgment and insight intact Objective Data Vital Signs Vital Signs: Vital Signs - 24 hr 09/19/22 19:39 09/19/22 20:00 09/20/22 04:22 Temperature 97.6 F 97.7 F Pulse Rate 79 77 Respiratory Rate 18 18 Blood Pressure 114/70 106/64 Pulse Oximetry 100 98 Oxygen Delivery Room Air 09/20/22 08:00 09/20/22 13:44 Temperature 97.6 F Pulse Rate 74 Respiratory Rate 16 Blood Pressure 110/73 Pulse Oximetry 99 Oxygen Delivery Room Air Intake/Output Intake/Output: Intake & Output 09/17/22 09/18/22 09/19/22 09/20/22 23:59 23:59 23:59 23:59 Intake Total 2250 4166 3413 630 Output Total 1950 2000 Balance 300 2166 3413 630 Meds/Results Medications: Active Medications Generic Name Dose Route Start Last Admin Trade Name Freq PRN Reason Stop Dose Admin Dextrose 12.5 gm 09/17/22 17:53 Dextrose 50% 25 Gm/50 Ml Syringe IV PUSH PRN PRN Hypoglycemia Protocol Enoxaparin Sodium 40 mg 09/15/22 09:00 09/20/22 08:35 Enoxaparin 40 Mg/0.4 Ml Syringe SUB
[2022-09-20 15:27] LABS: Alanine Aminotransferase 95 U/L (6-35); Albumin Level 4.1 g/dL (3.5-5.1); Alkaline Phosphatase 100 U/L (38-126); Aspartate Amino Transferase 46 U/L (14-36); Bilirubin,Total 0.3 mg/dL (0.2-1.3)
[2022-09-20 20:14] VITALS: BP 102/70; PULSE 96; RESP 16; TEMP 36.6; O2SAT 96
[2022-09-20 20:25] LABS: Triglycerides 177 mg/dL (<150)
[2022-09-21 05:08] VITALS: BP 104/58; PULSE 69; RESP 20; TEMP 36.6; O2SAT 96
[2022-09-21] MEDS: CENTRAL LINE FLUSH 10 ML IV PUSH ×3 (05:31→21:12)
[2022-09-21 05:40] LABS: Hematocrit 40.2 % (37.0-47.0); Mean Corpuscular HGB Conc 32.3 g/dl (32-36); Mean Corpuscular Hemoglobin 29.1 pg (26-34); Mean Corpuscular Volume 90.1 fl (80-100); Mean Platelet Volume 9.2 fl (7.4-10.4); Platelet Count Result 334 k/mm3 (150-375); Red Blood Count 4.46 M/mm3 (4.2-5.4); Red Cell Distribution Width 12.4 % (11.5-14.5); White Blood Count 6.1 K/mm3 (4.5-10.0)
[2022-09-21 05:51] LABS: Alanine Aminotransferase 75 U/L (6-35); Albumin Level 3.8 g/dL (3.5-5.1); Alkaline Phosphatase 87 U/L (38-126); Anion Gap 5 mmol/L (8-16); Aspartate Amino Transferase 39 U/L (14-36); Bilirubin,Total 0.4 mg/dL (0.2-1.3); Blood Urea Nitrogen 17 mg/dL (7-17); Calcium 8.7 mg/dL (8.4-10.2); Carbon Dioxide 29 mmol/L (22-30); Chloride 106 mmol/L (98-107); Estimated CRCL calculation 98 ml/min; Estimated Glomerular Filt Rate > 60; Glucose 80 mg/dL (65-110); Potassium 4.9 mmol/L (3.4-5.0); Sodium 140 mmol/L (137-145)
[2022-09-21 06:43] LABS: Hepatitis B Surface Antigen Negative (Negative)
[2022-09-21 06:49] LABS: HAV RESULT Negative (Negative); Hepatitis B Core IgM Result Negative (Negative)
[2022-09-21 07:01] LABS: Hepatitis C Virus Antibody Negative (Negative)
--- NOTE | 2022-09-21 07:38 | WPDGIPROGNO ---
Progress Note: A&P Assessment and Plan (1) Abdominal pain: Code(s): R10.9 - Unspecified abdominal pain Status: Acute Assessment and Plan: the pain is rather diffuse and bilateral which is perplexing, given the fairly normal radiographs except for the initial CT scan. the most recent KUB is read as unremarkable however there is significantly more air in the small bowel on that exam compared to the 1 a few days previous. I discussed with the patient performing small-bowel series with regular contrast not water soluble to trying get better detail of the distal small bowel (2) SBO (small bowel obstruction): Code(s): K56.609 - Unspecified intestinal obstruction, unspecified as to partial versus complete obstruction Status: Acute Assessment and Plan: Small-bowel series today does not show obstruction. I am concerned however that the findings on CT scan could represent regional enteritis that may not have been seen on the water contrast study today I will obtain serology for inflammatory bowel disease will get fecal calprotectin, C reactive protein 09/20/2022 I reviewed her old records. I saw that in 2018 she had a very similar, in fact almost identical presentation. Pain beginning after having been at [facility], a CT scan that showed possible ileitis verses SBO she did well with NG suction. She then had a colonoscopy which revealed normal terminal ileum, Ruling out Crohn's disease. She had followed up with Dr. Ayon in the office and it was felt that she did not have inflammatory bowel disease. I think therefore, there is still a possibility that she has partial small-bowel obstruction due to adhesions, particularly given the fact she has had extensive surgery. We are waiting calprotectin and IBD serology 09/21/2022 further discussion today of her past history reveals that she has virtually no problems between hospitalizations. Mother words does not have abdominal pain or diarrhea (3) History of incisional hernia repair: Code(s): Z98.890 - Other specified postprocedural states; Z87.19 - Personal history of other diseases of the digestive system Status: Acute Assessment and Plan: given the fact she has had multiple abdominal operations including appendectomy cholecystectomy, she is certainly at risk for obstruction due to adhesions. We will need to advance her diet slowly, as tolerated today she is willing to try a full liquid diet. She states that she kept a clear liquids down last night without any significant problem (4) Transaminitis: Code(s): R74.01 - Elevation of levels of liver transaminase levels Status: Acute Assessment and Plan: her LFTs were normal on admission and again on September 16. Two days ago however AST jumped to 195, ALT 146. I will recheck them today and get gamma GTP as well. She has no history of liver disease. The last time she had alcohol was on new year's. LFTs have been improving since their peak a few days ago 09/21/2022 AST is down to 39 today. It was normal on admission. I told her therefore this is probably all stress and/or medication related. Plan I Shared with her the my findings. we went over all of her previous hospitalizations. She does recall now that the admission in 2018 was very similar. Between however she has had no significant problems, therefore it would be difficult to believe that this is due to inflammatory bowel disease. I also told her that although yesterday's KUB was read as unremarkable that there was significant increase in the amount of small bowel air. Therefore I am reluctant to advance her diet at this point. will schedule small bowel series and premedicated her with Zofran. Time Spent With Patient Time with patient: Greater than 35 minutes Subjective Date/time seen: 09/21/22 07:38 She had old male yesterday morning after which she was uncomfortable. lunch and dinner also made
[2022-09-21] MEDS: ONDANSETRON INJ 4 MG/2 ML VIAL IV PUSH (08:15)
[2022-09-21] MEDS: ENOXAPARIN 40 MG/0.4 ML SYRINGE SUB-Q (10:09)
[2022-09-21] MEDS: FAMOTIDINE 20 MG/2 ML VIAL IV PUSH ×2 (10:10→21:12)
[2022-09-21 13:57] VITALS: BP 100/68; PULSE 73; RESP 16; TEMP 37.2; O2SAT 100
--- NOTE | 2022-09-21 14:18 | PM.IMPN ---
Progress Note: A&P Assessment and Plan (1) SBO (small bowel obstruction): Code(s): K56.609 - Unspecified intestinal obstruction, unspecified as to partial versus complete obstruction Status: Acute Assessment and Plan: History of significant abdominal surgeries including hysterectomy, cholecystectomy, appendectomy, partial colon resection. CTA on admission showed small bowel obstruction without perforation or abscess. Appreciate general surgery consultation. completed small-bowel follow-through on 09/18 which showed normal transit time from stomach to colon of 30-45 minutes. NG tube removed per General surgery recommendations on 09/18. Advance to low fiber diet. TPN discontinued 09/19. Continue supportive care. Antiemetics as needed (2) Abdominal pain: Code(s): R10.9 - Unspecified abdominal pain Status: Acute Assessment and Plan: Initially felt to be related to SBO, however worsened pain following resolution of obstruction. patient has been seen in consultation by GI. Laboratory workup for IBD is pending. KUB unremarkable. Small bowel series with contrast completed today was unremarkable. Continue analgesics and antiemetics as needed. Advance to low fiber diet and will see how she tolerates. (3) Transaminitis: Code(s): R74.01 - Elevation of levels of liver transaminase levels Status: Acute Assessment and Plan: LFTs normal on presentation with sharp increase on 09/18/22. Trending down today. Etiology unclear. Hepatitis panel pending. Trend LFTs and continue to monitor (4) Anxiety: Code(s): F41.9 - Anxiety disorder, unspecified Status: Acute Assessment and Plan: Patient endorses anxiety and increased stress. May benefit from SSRI. Will defer to PCP. Patient should have close outpatient follow up after discharge. Subjective Date/time seen: 09/21/22 14:18 Interval history: Date of service: 09/20/2022 Patient seen in follow-up for small bowel obstruction. She is feeling better today. She does complain of soreness but thinks that her bloating has improved. She is tolerating full liquid and would like to advance her diet. She denies nausea or vomiting. She had loose stools following her upper GI series today. Her mother is at the bedside and raises the concern that many of her symptoms may be due to stress. The patient agreed and notes that she has been under stress lately, especially with the recent holidays and she has been feeling anxious. Review of Systems Review of Systems: All systems reviewed & are unremarkable except as noted in HPI and below Exam Narrative: General: well-nourished, well-appearing 41-year-old female, sitting up in bed, NARD Neuro: awake, alert and oriented x4, speech clear, no focal neuro deficits noted HEENMT: normocephalic, atraumatic, EOMI, sclerae anicteric Respiratory: clear to auscultation bilaterally, nonlabored breathing Cardio: regular rate, regular rhythm with S1-S2 Abdomen: nondistended, normoactive bowel sounds, soft, tender to palpation across lower abdomen Extremities: no edema, erythema, or tenderness to palpation, DP pulses 2+ bilaterally Skin: no rashes or lesions, warm and dry Psych: appropriate mood and affect, judgment and insight intact Objective Data Vital Signs Vital Signs: Vital Signs - 24 hr 09/20/22 20:14 09/20/22 20:00 09/21/22 05:08 Temperature 97.9 F 97.8 F Pulse Rate 96 69 Respiratory Rate 16 20 Blood Pressure 102/70 104/58 L Pulse Oximetry 96 96 Oxygen Delivery Room Air 09/21/22 08:00 09/21/22 13:57 Temperature 98.9 F Pulse Rate 73 Respiratory Rate 16 Blood Pressure 100/68 Pulse Oximetry 100 Oxygen Delivery Room Air Intake/Output Intake/Output: Intake & Output 09/18/22 09/19/22 09/20/22 09/21/22 23:59 23:59 23:59 23:59 Intake Total 4166 3413 990 700 Output Total 1999 500 Balance 2166 3413 990 200 Meds/Results Medications:
[2022-09-21] MEDS: HYDROmorphone HCL INJ (*CRX) 1 MG/ML SYR 0.5 MG IV PUSH (16:59)
[2022-09-21 21:00] VITALS: BP 109/66; PULSE 78; RESP 16; TEMP 36.4; O2SAT 97
[2022-09-22] MEDS: CENTRAL LINE FLUSH 10 ML IV PUSH ×3 (05:47→21:01)
[2022-09-22 05:58] LABS: Basophils Absolute Auto 0.1 K/mm3 (0.0-0.1); Basophils Percent Auto 1.3 % (0.2-1.2); Eosinophils Absolute Auto 0.2 K/mm3 (0-0.3); Eosinophils Percent Auto 2.4 % (0-4.4); Hematocrit 38.6 % (37.0-47.0); Hemoglobin 12.7 g/dL (12.0-15.0); Immature Granulocyte Absolute 0.01 K/mm3 (0.00-0.031); Immature Granulocyte Percent A 0.1 % (0-0.5); Lymphocytes Absolute Auto 2.27 K/mm3 (0.9-3.2); Mean Corpuscular HGB Conc 32.9 g/dl (32-36); Mean Corpuscular Hemoglobin 28.7 pg (26-34); Mean Corpuscular Volume 87.1 fl (80-100); Monocytes Absolute Auto 0.5 K/mm3 (0.1-0.6); Monocytes Percent Auto 7.3 % (2.6-8.5); Neutrophils Absolute Auto 3.7 K/mm3 (1.3-6.7); Neutrophils Percent Auto 54.9 % (45.5-73.1); Platelet Count Result 344 k/mm3 (150-375); Red Blood Count 4.43 M/mm3 (4.2-5.4); Red Cell Distribution Width 12.2 % (11.5-14.5); White Blood Count 6.7 K/mm3 (4.5-10.0)
[2022-09-22 06:00] VITALS: BP 120/69; PULSE 73; RESP 16; TEMP 36.7; O2SAT 96
[2022-09-22 06:17] LABS: Alanine Aminotransferase 57 U/L (6-35); Albumin Level 4.1 g/dL (3.5-5.1); Alkaline Phosphatase 98 U/L (38-126); Anion Gap 5 mmol/L (8-16); Aspartate Amino Transferase 32 U/L (14-36); Bilirubin,Total 0.4 mg/dL (0.2-1.3); Blood Urea Nitrogen 17 mg/dL (7-17); Calcium 8.9 mg/dL (8.4-10.2); Carbon Dioxide 30 mmol/L (22-30); Chloride 104 mmol/L (98-107); Estimated CRCL calculation 98 ml/min; Estimated Glomerular Filt Rate > 60; Glucose 102 mg/dL (65-110); Potassium 5.2 mmol/L (3.4-5.0); Sodium 139 mmol/L (137-145); Triglycerides 119 mg/dL (<150)
[2022-09-22 06:21] LABS: Transferrin 250 mg/dL (206-381)
--- NOTE | 2022-09-22 07:27 | WPDGIPROGNO ---
Progress Note: A&P Assessment and Plan (1) Abdominal pain: Code(s): R10.9 - Unspecified abdominal pain Status: Acute Assessment and Plan: the pain is rather diffuse and bilateral which is perplexing, given the fairly normal radiographs except for the initial CT scan. the most recent KUB is read as unremarkable however there is significantly more air in the small bowel on that exam compared to the 1 a few days previous. I discussed with the patient performing small-bowel series with regular contrast not water soluble to trying get better detail of the distal small bowel (2) SBO (small bowel obstruction): Code(s): K56.609 - Unspecified intestinal obstruction, unspecified as to partial versus complete obstruction Status: Acute Assessment and Plan: Small-bowel series today does not show obstruction. I am concerned however that the findings on CT scan could represent regional enteritis that may not have been seen on the water contrast study today I will obtain serology for inflammatory bowel disease will get fecal calprotectin, C reactive protein 09/20/2022 I reviewed her old records. I saw that in 2018 she had a very similar, in fact almost identical presentation. Pain beginning after having been at [facility], a CT scan that showed possible ileitis verses SBO she did well with NG suction. She then had a colonoscopy which revealed normal terminal ileum, Ruling out Crohn's disease. She had followed up with Dr. Ayon in the office and it was felt that she did not have inflammatory bowel disease. I think therefore, there is still a possibility that she has partial small-bowel obstruction due to adhesions, particularly given the fact she has had extensive surgery. We are waiting calprotectin and IBD serology 09/21/2022 further discussion today of her past history reveals that she has virtually no problems between hospitalizations. Mother words does not have abdominal pain or diarrhea 09/22/2022 small-bowel series done yesterday is entirely normal. We are advancing her diet. Because she gets uncomfortable when she eats, I will start her anti spasmodic. I did Explain to her that taking pain medication can decrease motility and may be partly responsible for her bloating. (3) History of incisional hernia repair: Code(s): Z98.890 - Other specified postprocedural states; Z87.19 - Personal history of other diseases of the digestive system Status: Acute Assessment and Plan: given the fact she has had multiple abdominal operations including appendectomy cholecystectomy, she is certainly at risk for obstruction due to adhesions. We will need to advance her diet slowly, as tolerated today she is willing to try a full liquid diet. She states that she kept a clear liquids down last night without any significant problem (4) Transaminitis: Code(s): R74.01 - Elevation of levels of liver transaminase levels Status: Acute Assessment and Plan: her LFTs were normal on admission and again on September 16. Two days ago however AST jumped to 195, ALT 146. I will recheck them today and get gamma GTP as well. She has no history of liver disease. The last time she had alcohol was on . LFTs have been improving since their peak a few days ago 09/21/2022 AST is down to 39 today. It was normal on admission. I told her therefore this is probably all stress and/or medication related. 09/22/2022 AST is back to normal Plan I Shared with her the my findings. we went over all of her previous hospitalizations. She does recall now that the admission in 2018 was very similar. Between however she has had no significant problems, therefore it would be difficult to believe that this is due to inflammatory bowel disease. I also told her that although yesterday's KUB was read as unremarkable that there was significant increase in the amount of small bowel air. Therefore I
[2022-09-22] MEDS: FAMOTIDINE 20 MG/2 ML VIAL IV PUSH ×2 (08:45→21:01)
[2022-09-22] MEDS: ENOXAPARIN 40 MG/0.4 ML SYRINGE SUB-Q (08:45)
[2022-09-22] MEDS: DICYCLOMINE HCL 10 MG CAPSULE 20 MG PO ×3 (08:46→17:16)
[2022-09-22] MEDS: traMADol HCL (*CRX) 25 MG TABLET PO (10:51)
--- NOTE | 2022-09-22 13:24 | PCNFU ---
Nutrition Follow-Up Complete: Inadqeuate energy intake related to NPO status and altered GI function as evidenced by current diet order and dx. Goal: Diet advancement when appropriate Goal being met. Diet advanced to low residue, tolerating Pt current nutrition is Low residue diet. Intakes 50-85% since advanced. Drinking some strawberry Ensure. Nutrition recommendation: Agree with current diet and supplements. Continue current diet and care plan Last recorded weight is 69.1 kg. Bowel Motility: +1 BM 09/22/22 Labs Reviewed: K+ 5.2, Cre 0.6 Meds Noted: Lovenox, Zofran Skin: WNL Additional Notes: Drinking Ensure and tolerating low fiber diet. Monitor for diet order, intake, wt, labs. Follow up in 3 days.
[2022-09-22 14:00] VITALS: BP 122/72; PULSE 80; RESP 16; TEMP 36.6; O2SAT 96
--- NOTE | 2022-09-22 17:01 | PM.IMPN ---
Progress Note: A&P Assessment and Plan (1) SBO (small bowel obstruction): Code(s): K56.609 - Unspecified intestinal obstruction, unspecified as to partial versus complete obstruction Status: Acute Assessment and Plan: History of significant abdominal surgeries including hysterectomy, cholecystectomy, appendectomy, partial colon resection. CTA on admission showed small bowel obstruction without perforation or abscess. Appreciate general surgery consultation. completed small-bowel follow-through on 09/18 which showed normal transit time from stomach to colon of 30-45 minutes. NG tube removed per General surgery recommendations on 09/18. TPN discontinued 09/19. Continue low fiber diet. (2) Abdominal pain: Code(s): R10.9 - Unspecified abdominal pain Status: Acute Assessment and Plan: Initially felt to be related to SBO, however worsened pain following resolution of obstruction. patient has been seen in consultation by GI. Laboratory workup for IBD is pending. KUB unremarkable. Small bowel series with contrast completed yesterday was unremarkable. Continue analgesics and antiemetics as needed. Continue low fiber diet. Dicyclomine added today, hopefully will provide symptomatic improvement. Stop narcotics as this could worsen abdominal pain. (3) Transaminitis: Code(s): R74.01 - Elevation of levels of liver transaminase levels Status: Acute Assessment and Plan: LFTs normal on presentation with sharp increase on 09/18/22. Trending down today. AST normalized. GGT pending. Etiology unclear. Hepatitis panel negative. Trend LFTs and continue to monitor (4) Anxiety: Code(s): F41.9 - Anxiety disorder, unspecified Status: Acute Assessment and Plan: Patient endorses anxiety and increased stress. May benefit from SSRI. Will defer to PCP. Patient should have close outpatient follow up after discharge. Subjective Date/time seen: 09/22/22 17:01 Interval history: Date of service: 09/20/2022 Patient seen in follow-up for small bowel obstruction. she has more bloating today. States her abdomen is sore. She has pretty significant pain when she stands up that she describes as stabbing in nature. She had an episode of diarrhea yesterday but no loose stools today. She was able to tolerate her breakfast this morning but does feel that she became more bloated after. Review of Systems Review of Systems: All systems reviewed & are unremarkable except as noted in HPI and below Exam Narrative: General: well-nourished, well-appearing 41-year-old female, sitting up in bed, NARD Neuro: awake, alert and oriented x4, speech clear, no focal neuro deficits noted HEENMT: normocephalic, atraumatic, EOMI, sclerae anicteric Respiratory: clear to auscultation bilaterally, nonlabored breathing Cardio: regular rate, regular rhythm with S1-S2 Abdomen: distended, normoactive bowel sounds, soft, diffuselty tender to palpation Extremities: no edema, erythema, or tenderness to palpation, DP pulses 2+ bilaterally Skin: no rashes or lesions, warm and dry Psych: appropriate mood and affect, judgment and insight intact Objective Data Vital Signs Vital Signs: Vital Signs - 24 hr 09/21/22 21:00 09/21/22 20:00 09/22/22 06:00 Temperature 97.6 F 98.1 F Pulse Rate 78 73 Respiratory Rate 16 16 Blood Pressure 109/66 120/69 Pulse Oximetry 97 96 Oxygen Delivery Room Air 09/22/22 08:50 09/22/22 14:00 Temperature 97.8 F Pulse Rate 80 Respiratory Rate 16 Blood Pressure 122/72 Pulse Oximetry 96 Oxygen Delivery Room Air Intake/Output Intake/Output: Intake & Output 09/19/22 09/20/22 09/21/22 09/22/22 23:59 23:59 23:59 23:59 Intake Total 3413 990 940 660 Output Total 500 Balance 3413 990 440 660 Meds/Results Medications: Active Medications Generic Name Dose Route Start Last Admin Trade Name Freq PRN Reason Stop Dose Admin Dextrose 12.5 g
[2022-09-22 22:06] VITALS: BP 104/76; PULSE 76; RESP 18; TEMP 36.2; O2SAT 95
[2022-09-23] MEDS: CENTRAL LINE FLUSH 10 ML IV PUSH (05:35)
[2022-09-23] MEDS: DICYCLOMINE HCL 10 MG CAPSULE 20 MG PO ×2 (05:35→11:03)
[2022-09-23 05:45] VITALS: BP 120/82; PULSE 78; RESP 18; TEMP 36.2; O2SAT 97
[2022-09-23 05:53] LABS: Alanine Aminotransferase 49 U/L (6-35); Alkaline Phosphatase 96 U/L (38-126); Anion Gap 5 mmol/L (8-16); Aspartate Amino Transferase 30 U/L (14-36); Bilirubin,Total 0.3 mg/dL (0.2-1.3); Blood Urea Nitrogen 13 mg/dL (7-17); Calcium 8.9 mg/dL (8.4-10.2); Carbon Dioxide 29 mmol/L (22-30); Chloride 103 mmol/L (98-107); Estimated CRCL calculation 98 ml/min; Estimated Glomerular Filt Rate > 60; Glucose 90 mg/dL (65-110); Potassium 4.1 mmol/L (3.4-5.0); Sodium 137 mmol/L (137-145)
[2022-09-23] MEDS: ENOXAPARIN 40 MG/0.4 ML SYRINGE SUB-Q (08:16)
[2022-09-23] MEDS: FAMOTIDINE 20 MG/2 ML VIAL IV PUSH (08:16)
--- NOTE | 2022-09-23 11:13 | PM.DS ---
DS: Admitting Diagnosis Discharge Date 09/23/2022 Admitting Diagnosis small-bowel obstruction DS: Discharge Diagnosis Discharge Diagnosis (1) SBO (small bowel obstruction): Code(s): K56.609 - Unspecified intestinal obstruction, unspecified as to partial versus complete obstruction Status: Acute Assessment and Plan: History of significant abdominal surgeries including hysterectomy, cholecystectomy, appendectomy, partial colon resection. CTA on admission showed small bowel obstruction without perforation or abscess. patient was seen in consultation by General surgery. She had symptomatic improvement with Bowel rest, IV fluids, and NG decompression. Completed small-bowel follow-through on 09/18 which showed normal transit time from stomach to colon of 30-45 minutes. NG tube removed and TPN was discontinued. Patient was able to slowly advanced to a low-fiber diet which she was able to tolerate well and will continue as an outpatient. (2) Abdominal pain: Code(s): R10.9 - Unspecified abdominal pain Status: Acute Assessment and Plan: Initially felt to be related to SBO, however worsened pain following resolution of obstruction. She was seen in consultation by GI. Laboratory workup for IBD completed during admission with results pending at time of discharge. Repeat KUB unremarkable. Small bowel series with contrast completed on 09/21 was unremarkable. started on dicyclomine 20 mg with meals and did have some improvement with this. She will follow-up with GI as an outpatient for continued monitoring and laboratory follow-up. (3) Transaminitis: Code(s): R74.01 - Elevation of levels of liver transaminase levels Status: Resolved Assessment and Plan: Resolved. LFTs normal on presentation with sharp increase on 09/18/22 and then subsequent decline. Etiology for this is unclear, may be reactive response. LFTs normalized. Hepatitis panel negative. (4) Anxiety: Code(s): F41.9 - Anxiety disorder, unspecified Status: Acute Assessment and Plan: Patient endorses anxiety and increased stress. Would likely benefit from SSRI. Will defer to PCP. Patient should have close outpatient follow up after discharge. DS: Summary Hospital Course Hospital Course: date of admission: 09/14/2022 date of discharge: 09/23/2022 Sara Aviles is a 41-year-old female with a history of diverticulitis, ureteral stones, incisional hernia s/p surgical repair, cholecystectomy, appendectomy, and sigmoidectomy who presented to the emergency department on 09/14/2022 with complaints of abdominal pain ongoing for 2 days prior to presentation. On presentation to the ED, her vital signs were stable, she was afebrile, WBC 11.1, additional laboratory workup unremarkable. NG tube was initiated and patient was admitted to the hospitalist service for further evaluation management. Please see above for further details. obstruction resolved and NG tube was removed. Patient was able to slowly advanced to low-fiber diet which she will continue. Hospital course was complicated by persistent abdominal pain for which she was evaluated by Gastroenterology with negative workup. Continue dicyclomine for symptomatic improvement. Follow-up with GI as an outpatient. symptoms were controlled and patient was tolerating diet, therefore was determined to no longer require inpatient care and was discharged in hemodynamically stable condition on 09/23/2022. Patient in agreement with discharge plans. Discussed worrisome signs and symptoms for which to return and she was educated on her medications. She was referred to the on-call PCP as her insurance changed on the 14 of September and is no longer accepted at her current PCP Status at Discharge Functional status at discharge: independent ambulation Overall status at discharge: patient is progressing back to baseline Time Spent with Patient Time attestation:
[2022-09-24 12:21] LABS: ANCA Screen Negative (Negative); Myeloperoxidase Ab <1.0 AI (<1.0); Proteinase-3 Ab <1.0 AI (<1.0); S cerevisiae Ab (IgA) 5.6 U (<=20.0); S cerevisiae Ab (IgG) 8.6 U (<=20.0)
[2022-09-24 15:47] LABS: GGT 32 U/L (3-55)
[2022-09-26 21:17] LABS: Calprotectin, Stool 19 mcg/g
== END 2022-09-23 12:55 | disposition home or self-care (01) | DRG 390 ==
LOC: ANHED 19:23 → ANH2MED 09-15 01:13
PROVIDERS: Emergency Medicine; Internal Medicine Gastroenterology; Nurse Practitioner Family; Surgery; Admitting Provider Student in an Organized Health Care Education/Training Program; Emergency Provider Emergency Medicine; PCP Internal Medicine; Visit Provider Physician Assistant
DX: K56.609 Unspecified intestinal obstruction, unspecified as to partial versus complete obstruction (principal); K58.9 Irritable bowel syndrome, unspecified; F41.9 Anxiety disorder, unspecified; R74.01 Elevation of levels of liver transaminase levels; R10.9 Unspecified abdominal pain; Z20.822 Contact with and (suspected) exposure to COVID-19; Z28.21 Immunization not carried out because of patient refusal; Z90.49 Acquired absence of other specified parts of digestive tract; Z87.442 Personal history of urinary calculi; Z90.710 Acquired absence of both cervix and uterus; Z87.19 Personal history of other diseases of the digestive system
CPT/HCPCS: 36415; 36569; 74018; 74177; 74246; 74248; 74250; 80048; 80053; 80074; 80076; 81003; 82948; 82977; 83605; 83690; 83735; 83993; 84100; 84466; 84478; 85025; 85027; 85730; 86036; 86140; 86671; 87636; 96361; 96374; 96375; 96376; 99285; A9270; C1751; C9113; G0378; J1170; J1650; J1741; J2270; J2405; J3480; J7030; Q9967

== ENCOUNTER 2022-10-24 13:49 | Outpatient (CLI) | payer OTHER, SELFPAY ==
--- NOTE | 2022-10-24 | ECG_ITS ---
Measurements Intervals [place] Rate: 68 P: 12 MA: 164 QRS: 29 QRSD: 82 T: 32 QT: 367 QTc: 393 Interpretive Statements SINUS RHYTHM COMPARED TO ECG 06/16/2022 08:36:25 NO SIGNIFICANT CHANGES Electronically Signed On 10-25-2022 8:17:43 EDUCATIONAL MANAGER by Renee Corrales M.D.
--- NOTE | ~2022-10-24 | XR_ITS ---
EXAMINATION: XR chest 2V DATE: 10/24/2022 14:22 INDICATION: Dyspnea on exertion TECHNIQUE: PA and lateral views of the chest were obtained. COMPARISON: Chest radiograph dated 07/10/2021 FINDINGS: The lungs remain clear with no focal airspace opacities, pulmonary edema, pleural effusion or pneumot horax. The cardiomediastinal silhouette is normal. Cholecystectomy clips in right upper quadrant. Lik milton developmental fusion at T6-T7. IMPRESSION: 1. No acute cardiopulmonary disease. Reviewed, dictated and finalized at location A. INVESTIGATOR
[2022-10-24 15:20] LABS: Hematocrit 44.5 % (37.0-47.0); Hemoglobin 14.4 g/dL (12.0-15.0); Mean Corpuscular HGB Conc 32.4 g/dl (32-36); Mean Corpuscular Hemoglobin 28.5 pg (26-34); Mean Corpuscular Volume 87.9 fl (80-100); Platelet Count Result 295 k/mm3 (150-375); Red Blood Count 5.06 M/mm3 (4.2-5.4); Red Cell Distribution Width 12.1 % (11.5-14.5); White Blood Count 5.9 K/mm3 (4.5-10.0)
[2022-10-24 15:31] LABS: Prothrombin Time 12.4 Seconds (11.1-14.7)
[2022-10-24 15:32] LABS: Partial Thromboplastin Time 25.4 SECONDS (22.3-36.8)
[2022-10-24 15:35] LABS: Alanine Aminotransferase 31 U/L (6-35); Albumin Level 4.9 g/dL (3.5-5.1); Alkaline Phosphatase 117 U/L (38-126); Anion Gap 8 mmol/L (8-16); Aspartate Amino Transferase 35 U/L (14-36); Bilirubin,Total 0.4 mg/dL (0.2-1.3); Blood Urea Nitrogen 14 mg/dL (7-17); Calcium 9.5 mg/dL (8.4-10.2); Carbon Dioxide 30 mmol/L (22-30); Chloride 102 mmol/L (98-107); Estimated Glomerular Filt Rate > 60; Glucose 81 mg/dL (65-110); Potassium 3.8 mmol/L (3.4-5.0); Sodium 140 mmol/L (137-145)
== END 2022-10-24 13:50 | disposition home or self-care (01) ==
PROVIDERS: PCP Internal Medicine
DX: R10.9 Unspecified abdominal pain (principal); R06.09 Other forms of dyspnea
CPT/HCPCS: 36415; 71046; 80053; 85027; 85610; 85730; 93005

== ENCOUNTER 2023-06-23 19:42 | Observation (INO) | payer OTHER, SELFPAY ==
--- NOTE | ~2023-06-23 | XR_ITS ---
XR abdomen/kub 1V 06/26/2023 16:59 INDICATION: Abdominal distention TECHNIQUE: KUB COMPARISON: Comparison to multiple prior studies sequentially, with oldest reviewed study dated 12/2022. FINDINGS: Bowel gas pattern is normal. There are cholecystectomy clips. There are surgical clips in t he pelvis. There is no evidence of free air, mass, organomegaly, ascites or obstruction. No abnormal calculi are seen. The bones appear intact. IMPRESSION: 1: No acute abdominal abnormality identified. Reviewed, dictated and finalized at location A.
--- NOTE | ~2023-06-23 | CT_ITS ---
EXAMINATION: CT abdomen pelvis w con INDICATION: Abdominal pain TECHNIQUE: Computed tomographic images of the abdomen and pelvis were obtained after the administrati on of 100 cc of Omnipaque 350 intravenous contrast. The dose-length product (DLP) was 323.71 mGy-cm. Automated exposure control and iterative reconstruction technique were employed. COMPARISON: 09/14/2022 FINDINGS: Minimal dependent atelectasis is present in the lung bases. The heart size is normal. The g allbladder is surgically absent. There is mild enlargement of the common bile duct and central intrah epatic ducts which is likely due to post cholecystectomy state. The liver, spleen, pancreas, and adre nal glands are normal. A 4 mm hypoattenuating lesion of the left kidney is too small to characterize but likely represents a cyst. The right kidney is unremarkable. No pathologically enlarged abdominal or pelvic lymph nodes are identified. No free intraperitoneal gas or evidence of bowel obstruction. T here are fluid-filled loops of nondistended small bowel in the midabdomen. Again noted is a [place] ventral hernia containing large and small bowel. IMPRESSION: 1. No CT correlate for the patient's symptoms. Reviewed, dictated and finalized at location F.
[2023-06-23 20:07] VITALS: PULSE 83; RESP 15; TEMP 36.8; O2SAT 100
[2023-06-23 20:23] LABS: Basophils Absolute Auto 0.1 K/mm3 (0.0-0.1); Eosinophils Absolute Auto 0.2 K/mm3 (0-0.3); Eosinophils Percent Auto 2.5 % (0-4.4); Hematocrit 42.9 % (37.0-47.0); Hemoglobin 14.3 g/dL (12.0-15.0); Immature Granulocyte Absolute 0.01 K/mm3 (0.00-0.031); Immature Granulocyte Percent A 0.1 % (0-0.5); Lymphocytes Absolute Auto 3.57 K/mm3 (0.9-3.2); Mean Corpuscular HGB Conc 33.3 g/dl (32-36); Mean Corpuscular Hemoglobin 29.7 pg (26-34); Mean Corpuscular Volume 89.2 fl (80-100); Mean Platelet Volume 9.2 fl (7.4-10.4); Monocytes Absolute Auto 0.5 K/mm3 (0.1-0.6); Neutrophils Absolute Auto 3.8 K/mm3 (1.3-6.7); Neutrophils Percent Auto 46.4 % (45.5-73.1); Platelet Count Result 314 k/mm3 (150-375); Red Blood Count 4.81 M/mm3 (4.2-5.4); Red Cell Distribution Width 12.5 % (11.5-14.5); White Blood Count 8.1 K/mm3 (4.5-10.0)
[2023-06-23 20:34] LABS: Alanine Aminotransferase 28 U/L (6-35); Albumin Level 4.9 g/dL (3.5-5.1); Alkaline Phosphatase 112 U/L (38-126); Anion Gap 9 mmol/L (8-16); Aspartate Amino Transferase 33 U/L (14-36); Bilirubin,Total 0.5 mg/dL (0.2-1.3); Blood Urea Nitrogen 14 mg/dL (7-17); Calcium 10.1 mg/dL (8.4-10.2); Carbon Dioxide 25 mmol/L (22-30); Chloride 102 mmol/L (98-107); Estimated CRCL calculation 86 ml/min; Estimated Glomerular Filt Rate > 60; Glucose 97 mg/dL (65-110); Lipase 285 U/L (23-300); Potassium 4.1 mmol/L (3.4-5.0); Sodium 136 mmol/L (137-145)
--- NOTE | 2023-06-23 21:21 | ED.GENADULT ---
[facility] - General Adult General Chief complaint: Abdominal Pain Stated complaint: upper abd pain x 24 hours Time Seen by Provider: 06/23/23 20:48 History of Present Illness HPI narrative: Patient presents the emergency department with gradually worsening abdominal pain and distention since last night. She has an extensive past abdominal surgical history including hysterectomy cholecystectomy appendectomy resulting small bowel obstructions and incisional hernia with abscesses. She has been doing well since her last surgery 6 months ago. Denies fevers chills. Denies nausea and vomiting. Abdomen is distended on exam and very tender. Related Data Allergies Allergy/AdvReac Type Severity Reaction Status Date / Time No Known Allergies Allergy Verified 06/23/23 19:43 Review of Systems Review of Systems: Review of systems negative except what is documented in the [facility] Past Medical History Medical History (Updated 09/23/22 @ 11:16 by Mehreen Romero PA-C) Acute diverticulitis resolved after sigmoidectomy in 2020 Overweight (BMI 25.0-29.9) Right ureteral stone Surgical History Surgical History (Updated 09/18/22 @ 17:18 by Davis Calhoun MD) History of appendectomy laparoscopic appendectomy February 2021 History of cholecystectomy 2010, laparoscopic History of hysterectomy 2013, ovaries removed each year the next 2 years History of incisional hernia repair laparoscopic incisional hernia repair July 2021 [facility] S/P laparoscopic-assisted sigmoidectomy February 2021 at [place], [place] Family History Family History Other Carcinoma of colon Other Diabetes mellitus Grandparent Heart attack Other Family history of coronary artery disease Social History Social History Smoking status: Never smoker Second hand tobacco smoke exposure: No Alcohol intake: current Drinks per week: 5 Substance use: never Substance use type: does not use Lack of Transportation: No Lack of Food: Never True Current Housing: I Have Housing Concerned About Future Housing: No Difficulty Paying Gas/Electric Bills: No Difficulty Paying for Meds: No Currently Unemployed: No Education: Associate Degree Difficulty w/ Childcare or Family Care: No Gender identity (if verbalized by the patient): Female Spiritual care concerns: No Exam Narrative: GENERAL: Well-appearing, well-nourished, and in no acute distress. HEAD: Normocephalic, atraumatic. EYES: PERRLA and EOMI. ENT: Nares clear, no rhinorrhea or epistaxis. Mucous membranes moist. NECK: Supple. CHEST: Clear to auscultation. No respiratory distress. HEART: Regular rate and rhythm. ABDOMEN: Soft, distended and acutely tender diffusely. EXTREMITIES: Normal range of motion. No edema. SKIN: Warm, dry, no rash. NEURO: No focal deficits. Alert and oriented x3. PSYCH: Normal mood and affect. Course Course Emergency Course: Differential diagnosis includes but not limited to small bowel obstruction, ischemic bowel, perforated bowel, abscesses Telemetry ordered due to narcotic pain medication to evaluate for dysrhythmias. Evaluated by myself. Rhythm NS Rate 85 Vital Signs Vital signs: Vital Signs Temperature 36.8 C 06/23/23 20:07 Pulse Rate 83 06/23/23 20:07 Respiratory Rate 15 06/23/23 20:07 Pulse Oximetry 100 06/23/23 20:07 Oxygen Delivery Room Air 06/23/23 20:07 Temperature 36.8 C 06/23/23 20:07 Pulse Rate 68 06/23/23 22:31 Respiratory Rate 18 06/23/23 22:31 Blood Pressure 122/86 06/23/23 22:31 Pulse Oximetry 98 06/23/23 22:31 Oxygen Delivery Room Air 06/23/23 20:07 Medical Decision Making MDM Narrative Medical decision making narrative: CT and labs unremarkable. No explanation for patient's pain Vital Signs Vital Signs: Vital Signs Temp
[2023-06-23 21:31] VITALS: BP 128/90; PULSE 70; RESP 13; O2SAT 100
[2023-06-23] MEDS: SODIUM CHLORIDE 0.9% IV 1,000 ML 999 ML IV CONT (21:42)
[2023-06-23] MEDS: HYDROmorphone HCL INJ (*CRX) 1 MG/ML SYR IV PUSH (21:43)
[2023-06-23] MEDS: ONDANSETRON INJ 4 MG/2 ML VIAL IV PUSH (21:43)
[2023-06-23 22:02] LABS: Lactic Acid Reflex 0.8 mmol/L (0.7-2.0)
[2023-06-23 22:31] VITALS: BP 122/86; PULSE 68; RESP 18; O2SAT 98
[2023-06-23 23:51] LABS: Appearance Urine Clear (Clear); Bacteria Urine None Seen /hpf; Bilirubin Urine Negative (Negative); Blood Urine Negative (Negative); Color Urine Yellow (Yellow); Glucose Urine UA Negative (Negative); Ketones Urine Trace mg/dL (Negative); Leukocyte Esterase Ur 1+ LEU/UL (Negative); Nitrate Urine Negative (Negative); Non Pathogenic Casts 0-2; Protein Urine Negative (Negative); RBC Urine 0-2 /hpf (0-2); Squamous Epithelial Cell Urine None seen /hpf (Few); Urobilinogen Urine 0.2 mg/dL (<2.0)
[2023-06-23 23:54] LABS: Add Urine Microscopic? YES; Specific Grav Ur 1.041 (1.001-1.035)
[2023-06-24] VITALS (7 sets, daily range): BP systolic 102–126; BP diastolic 67–91; PULSE 63–78; RESP 14–18; TEMP 35.9–36.3; O2SAT 92–100
[2023-06-24] MEDS: DICYCLOMINE HCL 10 MG CAPSULE 20 MG PO
[2023-06-24] MEDS: KETOROLAC 30 MG/ML VIAL (*BKC) IV PUSH
[2023-06-24] MEDS: HYDROmorphone HCL INJ (*CRX) 1 MG/ML SYR IV PUSH ×3 (00:59→06:11)
--- NOTE | 2023-06-24 03:21 | ADMGEN ---
This patient, Sara Aviles, was admitted to [facility] Surg Room 326-01. Patient/family oriented to hospital policies and general routines including ID bracelet, bed and alarms, visiting hours, pain management, procedures, bathroom and other care routines, personal items, smoking policy, room service/diet, and visiting hours. Information on how to activate the Rapid Response Team has been discussed. Patient/Family are encouraged to report perceived risks to care and to ask questions if they do not understand what they are told or what they should do.
[2023-06-24] MEDS: ACETAMINOPHEN 325 MG TABLET 650 MG PO ×3 (09:16→20:07)
[2023-06-24] MEDS: CYCLOBENZAPRINE HCL 5 MG TABLET PO ×2 (13:04→19:58)
--- NOTE | 2023-06-24 13:50 | PM.IMHP ---
H&P: HPI History of Present Illness Date/Time: 06/24/23 13:50 Chief Complaint: abdominal pain Narrative: This is a 42-year-old female with a significant past medical history of abdominal surgeries. Patient had colon resection in 2020 due to recurrent diverticulitis, appendectomy in 2020, 6 hernia repairs in 2020, lap choly in 2010 and hysterectomy. Patient does have history of recurrent obstructions and had abdominal adhesion removal in November of 2022. She returned to the ED due to acute abdominal pain that she describes as feeling as if she is going into labor. patient has upper abdominal pain and cramping that she does not feels associated with eating or drinking. Patient does have visible abdominal distension. She is not have any lower abdominal pain although she feels as if she has not been able to pee for the past several days. Patient was bladder scanned and was found to have 450 cc in the bladder and was straight cathed. Urine suspicious for UTI with +1 leukocyte esterase and 11-20 wbc's and started on Rocephin. Will wait to put in a Baxter. CT abdomen pelvis did not reveal any acute findings for why patient was having upper abdominal pain. She is started on IV Protonix and Gas-X. She does have some nausea but denies any vomiting, diarrhea and urinary symptoms such as dysuria. [facility] Past Medical History Medical History Acute diverticulitis resolved after sigmoidectomy in 2020 Overweight (BMI 25.0-29.9) Right ureteral stone Surgical History Surgical History History of abdominal surgery History of appendectomy laparoscopic appendectomy February 2021 History of cholecystectomy 2010, laparoscopic History of hysterectomy 2013, ovaries removed each year the next 2 years History of incisional hernia repair laparoscopic incisional hernia repair July 2021 [facility] S/P laparoscopic-assisted sigmoidectomy February 2021 at [place], [place] Family History Family History Other Carcinoma of colon Other Diabetes mellitus Grandparent Heart attack Other Family history of coronary artery disease Social History Social History (Reviewed 06/24/23 @ 14:02 by SOLIS Dias Smoking status: Never smoker Second hand tobacco smoke exposure: No Alcohol intake: current Drinks per week: 6 Substance use: never Substance use type: does not use Lack of Transportation: No Lack of Food: Never True Current Housing: I Have Housing Concerned About Future Housing: No Difficulty Paying Gas/Electric Bills: No Difficulty Paying for Meds: No Currently Unemployed: No Education: Associate Degree Difficulty w/ Childcare or Family Care: No Gender identity (if verbalized by the patient): Female Spiritual care concerns: No Meds Home Medications and Allergies Home Medications Medication Instructions Recorded Confirmed Type No Home Medications 06/24/23 06/24/23 History Allergies Allergy/AdvReac Type Severity Reaction Status Date / Time No Known Allergies Allergy Verified 06/23/23 19:43 Vital Signs Vital Signs - 24 hr 06/23/23 20:07 06/23/23 21:31 06/23/23 22:31 Temperature 98.2 F Pulse Rate 83 70 68 Respiratory Rate 15 13 18 Blood Pressure 128/90 122/86 Pulse Oximetry 100 100 98 Oxygen Delivery Room Air 06/24/23 00:05 06/24/23 02:04 06/24/23 03:03 Temperature Pulse Rate 68 69 63 Respiratory Rate 14 Blood Pressure 126/91 H 113/76 109/82 Pulse Oximetry 100 96 96 Oxygen Delivery 06/24/23 03:29 06/24/23 06:24 Temperature 96.7 F L 96.6 F L Pulse Rate 69 64 Respiratory Rate 18 16 Blood Pressure 114/81 106/69 Pulse Oximetry 100 99 Oxygen Delivery Exam Narrative: GENERAL: Comfortable, no acute distress HENMT: moist mucous membranes EYE
[2023-06-24] MEDS: SIMETHICONE 80 MG TAB.CHEW PO ×3 (14:12→19:58)
[2023-06-24] MEDS: PANTOPRAZOLE SODIUM IV 40 MG VIAL IV PUSH (19:58)
[2023-06-25 04:43] VITALS: BP 109/78; PULSE 77; RESP 16; TEMP 36.3; O2SAT 100
[2023-06-25] MEDS: HYDROcodone/acetaminophen (*CRX) 10-325 MG TABLET 1 TAB PO (04:50)
[2023-06-25] MEDS: LACTATED RINGERS 1,000 ML 100 ML IV CONT (04:51)
[2023-06-25] MEDS: CYCLOBENZAPRINE HCL 5 MG TABLET PO ×2 (06:50→15:53)
[2023-06-25 06:59] LABS: Basophils Absolute Auto 0.1 K/mm3 (0.0-0.1); Basophils Percent Auto 1.6 % (0.2-1.2); Eosinophils Absolute Auto 0.1 K/mm3 (0-0.3); Eosinophils Percent Auto 2.8 % (0-4.4); Hematocrit 39.2 % (37.0-47.0); Hemoglobin 12.6 g/dL (12.0-15.0); Immature Granulocyte Absolute 0.01 K/mm3 (0.00-0.031); Immature Granulocyte Percent A 0.2 % (0-0.5); Lymphocytes Absolute Auto 1.74 K/mm3 (0.9-3.2); Lymphocytes Percent Auto 39.9 % (18.3-44.2); Mean Corpuscular HGB Conc 32.1 g/dl (32-36); Mean Corpuscular Hemoglobin 29.2 pg (26-34); Monocytes Absolute Auto 0.3 K/mm3 (0.1-0.6); Monocytes Percent Auto 6.4 % (2.6-8.5); Neutrophils Absolute Auto 2.1 K/mm3 (1.3-6.7); Neutrophils Percent Auto 49.1 % (45.5-73.1); Platelet Count Result 238 k/mm3 (150-375); Red Blood Count 4.31 M/mm3 (4.2-5.4); Red Cell Distribution Width 12.3 % (11.5-14.5); White Blood Count 4.4 K/mm3 (4.5-10.0)
[2023-06-25 07:19] LABS: Alanine Aminotransferase 24 U/L (6-35); Albumin Level 3.9 g/dL (3.5-5.1); Alkaline Phosphatase 79 U/L (38-126); Anion Gap 5 mmol/L (8-16); Aspartate Amino Transferase 28 U/L (14-36); Bilirubin,Total 0.5 mg/dL (0.2-1.3); Blood Urea Nitrogen 8 mg/dL (7-17); Calcium 9.1 mg/dL (8.4-10.2); Carbon Dioxide 28 mmol/L (22-30); Chloride 104 mmol/L (98-107); Estimated CRCL calculation 75 ml/min; Estimated Glomerular Filt Rate > 60; Glucose 94 mg/dL (65-110); Potassium 4.1 mmol/L (3.4-5.0); Sodium 137 mmol/L (137-145)
[2023-06-25] MEDS: PANTOPRAZOLE SODIUM IV 40 MG VIAL IV PUSH ×2 (08:02→21:00)
[2023-06-25] MEDS: SIMETHICONE 80 MG TAB.CHEW PO ×3 (08:03→20:59)
[2023-06-25 08:04] VITALS: O2SAT 98
[2023-06-25] MEDS: HYDROcodone/acetaminophen (*CRX) 5-325 MG TABLET 1 TAB PO ×2 (08:06→15:53)
--- NOTE | 2023-06-25 13:54 | PM.IMPN ---
Progress Note: A&P Assessment and Plan (1) Abdominal pain: Code(s): R10.9 - Unspecified abdominal pain Status: Acute Assessment and Plan: patient presented to the ED due to 2 days of abdominal pain. CT abdomen pelvis unremarkable. Lipase within normal limits. History of appendectomy and cholecystectomy. Start on IV Protonix 40 mg b.i.d.. GI consulted appreciate recommendations (2) UTI (urinary tract infection): Code(s): N39.0 - Urinary tract infection, site not specified Status: Acute Assessment and Plan: Patient was found to have cloudy urine, 1+ leukocyte esterase and 11-20 wbc's. Patient started on Rocephin. Urine cultures pending Tailor antibiotics to culture results (3) History of abdominal surgery: Code(s): Z98.890 - Other specified postprocedural states Status: Acute Assessment and Plan: Patient with history of colon resection in 2020, appendectomy in 2020, 6 hernia repairs in 2020 and cholecystectomy in 2010. Patient underwent abdominal adhesion removal in November of 2022. Subjective Date/time seen: 06/25/23 13:54 Interval history: Patient continues to have abdominal pain and bloating associated with p.o. intake. Will consult GI. Patient may need EGD or gastric emptying scan. she states that her nausea has improved and denies any diarrhea. Exam Narrative: GENERAL: Comfortable, no acute distress HENMT: moist mucous membranes EYES: EOM intact b/l NECK: no lymphadenopathy RESPIRATORY: clear to auscultation CARDIO: RRR GI: soft, Diffuse tenderness to palpation, distension, bowel sounds present SKIN: no rashes EXTREMITIES: no edema, redness or tenderness Objective Data Vital Signs Vital Signs: Vital Signs - 24 hr 06/24/23 14:00 06/24/23 21:15 06/25/23 04:43 Temperature 96.9 F L 97.3 F L 97.3 F L Pulse Rate 78 71 77 Respiratory Rate 16 16 16 Blood Pressure 102/67 109/69 109/78 Pulse Oximetry 92 95 100 Oxygen Delivery 06/25/23 08:04 06/25/23 08:00 Temperature Pulse Rate Respiratory Rate Blood Pressure Pulse Oximetry 98 Oxygen Delivery Room Air Room Air Intake/Output Intake/Output: Intake & Output 10/09/23 10/10/23 10/11/23 10/12/23 23:59 23:59 23:59 23:59 Intake Total 1000 1172 530 Output Total 1400 600 Balance 1000 -228 -70 Meds/Results Medications: Active Medications Generic Name Dose Route Start Last Admin Trade Name Michelle PRN Reason Stop Dose Admin Acetaminophen 650 mg 06/24/23 09:12 06/24/23 20:07 Acetaminophen 325 Mg Tablet PO 650 mg Q4H PRN Administration Mild Pain (1-3) or Fever Hydrocodone Bitart/Acetaminophen 1 tab 06/25/23 07:37 06/25/23 08:06 Hydrocodone/Acetaminophen (*Crx) 5-325 Mg Tablet PO 1 tab Q6H PRN Administration Pain Rated 4-10 Cyclobenzaprine HCl 5 mg 06/24/23 12:44 06/25/23 06:50 Cyclobenzaprine Hcl 5 Mg Tablet PO 5 mg Q8H PRN Administration Muscle Spasm Ceftriaxone Sodium 1 gm in 50 mls @ 100 mls/hr 06/24/23 09:00 06/25/23 09:21 Rocephin 1 Gm/Ns 50 Ml IVPB Infused Q24H WILEY Infusion Morphine Sulfate 2 mg 06/25/23 13:50 Morphine Sulfate (*Crx) 2 Mg/Ml Inj IV PUSH Q4H PRN Pain Rated 7-10 Pantoprazole Sodium 40 mg 06/24/23 21:00 06/25/23 08:02 Pantoprazole Sodium Iv 40 Mg Vial IV PUSH 40 mg Q12HR WILEY Administration Simethicone 80 mg 06/24/23 13:00 06/25/23 08:03 Simethicone 80 Mg Tab.Chew PO 80 mg QID WILEY Administration Radiology Results: ITS Impressions Abdomen/Pelvis CT 06/23/23 22:10 IMPRESSION: 1. No CT correlate for the patient's symptoms. Labs Labs: Laboratory Results - last 24 hr 06/25/23 06:44 WBC 4.4 L RBC 4.31 Hgb 12.6 Hct 39.2 MCV 91.0 MCH 29.2 MCHC 32.1 RDW 12.3 Plt Count 238 MPV 9.0 Immature Gran % (Auto) 0.2 Neut % (Auto) 49.1 Lymph % (Auto) 39.9 [place] % (Auto) 6.4
[2023-06-25 14:00] VITALS: BP 112/81; PULSE 69; RESP 16; TEMP 36.6; O2SAT 100
[2023-06-25] MEDS: MORPHINE SULFATE (*CRX) 2 MG/ML INJ IV PUSH ×2 (14:10→18:22)
[2023-06-25 21:24] VITALS: BP 114/72; PULSE 72; RESP 14; TEMP 37.1; O2SAT 98
[2023-06-26] MEDS: MORPHINE SULFATE (*CRX) 2 MG/ML INJ IV PUSH ×4 (02:53→20:22)
[2023-06-26 06:00] VITALS: BP 119/74; PULSE 70; RESP 14; TEMP 36.9; O2SAT 99
[2023-06-26 06:10] LABS: Basophils Absolute Auto 0.1 K/mm3 (0.0-0.1); Basophils Percent Auto 1.3 % (0.2-1.2); Eosinophils Absolute Auto 0.2 K/mm3 (0-0.3); Eosinophils Percent Auto 3.6 % (0-4.4); Hematocrit 39.9 % (37.0-47.0); Hemoglobin 12.7 g/dL (12.0-15.0); Immature Granulocyte Absolute 0.01 K/mm3 (0.00-0.031); Immature Granulocyte Percent A 0.2 % (0-0.5); Lymphocytes Absolute Auto 2.44 K/mm3 (0.9-3.2); Mean Corpuscular HGB Conc 31.8 g/dl (32-36); Mean Corpuscular Hemoglobin 28.9 pg (26-34); Mean Corpuscular Volume 90.7 fl (80-100); Mean Platelet Volume 9.1 fl (7.4-10.4); Monocytes Absolute Auto 0.4 K/mm3 (0.1-0.6); Monocytes Percent Auto 6.7 % (2.6-8.5); Neutrophils Absolute Auto 2.5 K/mm3 (1.3-6.7); Neutrophils Percent Auto 44.2 % (45.5-73.1); Platelet Count Result 244 k/mm3 (150-375); Red Cell Distribution Width 12.2 % (11.5-14.5); White Blood Count 5.5 K/mm3 (4.5-10.0)
[2023-06-26] MEDS: CYCLOBENZAPRINE HCL 5 MG TABLET PO ×2 (06:10→16:25)
[2023-06-26] MEDS: HYDROcodone/acetaminophen (*CRX) 5-325 MG TABLET 1 TAB PO ×2 (06:10→16:25)
[2023-06-26 06:32] LABS: Alanine Aminotransferase 23 U/L (6-35); Albumin Level 3.9 g/dL (3.5-5.1); Alkaline Phosphatase 76 U/L (38-126); Anion Gap 3 mmol/L (8-16); Aspartate Amino Transferase 27 U/L (14-36); Bilirubin,Total 0.5 mg/dL (0.2-1.3); Blood Urea Nitrogen 7 mg/dL (7-17); Carbon Dioxide 30 mmol/L (22-30); Chloride 104 mmol/L (98-107); Estimated CRCL calculation 75 ml/min; Estimated Glomerular Filt Rate > 60; Glucose 92 mg/dL (65-110); Potassium 3.9 mmol/L (3.4-5.0); Sodium 137 mmol/L (137-145)
--- NOTE | 2023-06-26 07:01 | WPDGICN ---
Assessment and Plan Assessment and plan (1) Right upper quadrant pain: Code(s): R10.11 - Right upper quadrant pain Status: Acute Assessment and Plan: her symptoms are atypical for peptic ulcer disease but we have no explanation so far for upper abdominal pain. I will schedule her for an EGD to be done today (2) Abdominal distension: Code(s): R14.0 - Abdominal distension (gaseous) Status: Acute Assessment and Plan: although she states she feels and does look a bit distended, x-rays do not show any signs of obstruction or ileus (3) History of abdominal surgery: Code(s): Z98.890 - Other specified postprocedural states Status: Acute Assessment and Plan: she has had innumerable operations for various issues including endometriosis, appendicitis, diverticulitis, and adhesiolysis. Plan I suspect her symptoms may be due to adhesions given the history she has with them. perform EGD to rule out upper gastrointestinal disease not seen on CT scan GI Consult Note Consult date/time: 06/26/23 07:01 HPI: Sara Aviles is a 42 year old female Who has had recurrent problems with intestinal obstruction requiring extensive adhesiolysis which was done just about 6 months ago. She was doing great until last week Thursday when she developed discomfort in the right flank area. It has persisted and become much worse particularly after she tries to eat something it radiates across the abdomen but is most intense in the right side below the costal margin laterally. She has had nausea but no vomiting. She has been passing some gas. She past medical history includes the fact she has had a colon resection 2 years ago for diverticulitis. She had an appendectomy, she has had apparently 6 deferred hernia repairs the laparoscopic cholecystectomy and finally hysterectomy. This past September she was hospitalized here and scan showed possible abnormality of the terminal ileum. She had had these changes seen once before and had had a colonoscopy a few years ago by , which was entirely normal including the terminal ileum. During her last hospitalization with obtain serology for inflammatory bowel disease all of which was negative. Also she had of stool calprotectin level that was low. These therefore rule out any inflammatory bowel disease process. She denies using NSAIDs to excess in fact does not take any home medications. Review of Systems Review of Systems: All systems reviewed & are unremarkable except as noted in HPI and below PMFSH Past Medical History Medical History Acute diverticulitis resolved after sigmoidectomy in 2020 Overweight (BMI 25.0-29.9) Right ureteral stone Surgical History Surgical History History of abdominal surgery History of appendectomy laparoscopic appendectomy February 2021 History of cholecystectomy 2010, laparoscopic History of hysterectomy 2013, ovaries removed each year the next 2 years History of incisional hernia repair laparoscopic incisional hernia repair July 2021 [facility] S/P laparoscopic-assisted sigmoidectomy February 2021 at [place], [place] Family History Family History Other Carcinoma of colon Other Diabetes mellitus Grandparent Heart attack Other Family history of coronary artery disease Social History Social History Smoking status: Never smoker Second hand tobacco smoke exposure: No Alcohol intake: current Drinks per week: 6 Substance use: never Substance use type: does not use Lack of Transportation: No Lack of Food: Never True Current Housing: I Have Housing Concerned About Future Housing: No Difficulty Paying Gas/Electric Bills: No Difficulty Paying fo
[2023-06-26] MEDS: PANTOPRAZOLE SODIUM IV 40 MG VIAL IV PUSH ×2 (08:17→20:22)
[2023-06-26] MEDS: SIMETHICONE 80 MG TAB.CHEW PO ×3 (08:19→20:22)
[2023-06-26 12:04] VITALS: BP 116/87; PULSE 64; RESP 16; TEMP 36.2; O2SAT 99
[2023-06-26] MEDS: LACTATED RINGERS 1,000 ML 150 ML IV CONT (12:08)
--- NOTE | 2023-06-26 12:45 | WPDANESEPPF ---
Anes - Initial Pre Proc Eval Procedure: Operation Date: 06/26/23 13:00 Proposed Procedures p Esophagogastroduodenoscopy - Davis Calhoun MD Date/Time: 06/26/23 12:45 Surgeon: Kourtney Quesada MD Pre Op Diagnosis: Abdominal Pain Patient Data Age: 42 Gender: F Height: 1.6 m Weight: 62.6 kg Last Vital Signs Temp 97.1 F L 06/26/23 12:04 Pulse 64 06/26/23 12:04 Resp 16 06/26/23 12:04 BP 116/87 06/26/23 12:04 Pulse Ox 99 06/26/23 12:04 O2 Del Method Room Air 06/26/23 12:04 Allergies Allergy/AdvReac Type Severity Reaction Status Date / Time No Known Allergies Allergy Verified 06/26/23 12:03 Home Medications Medication Instructions Recorded Confirmed Type No Home Medications 06/24/23 06/24/23 History Laboratory Tests 06/26/23 05:50 WBC 5.5 K/mm3 (4.5-10.0) RBC 4.40 M/mm3 (4.2-5.4) Hgb 12.7 g/dL (12.0-15.0) Hct 39.9 % (37.0-47.0) MCV 90.7 fl (80-100) MCH 28.9 pg (26-34) MCHC 31.8 L g/dl (32-36) RDW 12.2 % (11.5-14.5) Plt Count 244 k/mm3 (150-375) MPV 9.1 fl (7.4-10.4) Immature Gran % (Auto) 0.2 % (0-0.5) Neut % (Auto) 44.2 L % (45.5-73.1) Lymph % (Auto) 44.0 % (18.3-44.2) [place] % (Auto) 6.7 % (2.6-8.5) Eos % (Auto) 3.6 % (0-4.4) Baso % (Auto) 1.3 H % (0.2-1.2) Lymph # (Auto) 2.44 K/mm3 (0.9-3.2) [place] # (Auto) 0.4 K/mm3 (0.1-0.6) Eos # (Auto) 0.2 K/mm3 (0-0.3) Baso # (Auto) 0.1 K/mm3 (0.0-0.1) Abs Immat Gran (auto) 0.01 K/mm3 (0.00-0.031) Absolute Neuts (auto) 2.5 K/mm3 (1.3-6.7) Absolute Nucleated RBC 0.0 K/mm3 (0.0-0.012) Nucleated RBC % 0.0 % (0.0-0.2) Sodium 137 mmol/L (137-145) Potassium 3.9 mmol/L (3.4-5.0) Chloride 104 mmol/L (98-107) Carbon Dioxide 30 mmol/L (22-30) Anion Gap 3 L mmol/L (8-16) BUN 7 mg/dL (7-17) Creatinine 0.70 mg/dL (0.7-1.0) Estim Creat Clear Calc 75 ml/min Estimated GFR > 60 (59 - ) Glucose 92 mg/dL (65-110) Calcium 9.0 mg/dL (8.4-10.2) Total Bilirubin 0.5 mg/dL (0.2-1.3) AST 27 U/L (14-36) ALT 23 U/L (6-35) Alkaline Phosphatase 76 U/L (38-126) Total Protein 7.0 g/dL (6.3-8.2) Albumin 3.9 g/dL (3.5-5.1) Patient hx anesthesia problems: none Family hx anesthesia problems: none Results Review: All pre-operative results and documents have been reviewed as part of the pre-operative evaluation. [facility] Past Medical History Medical History Acute diverticulitis resolved after sigmoidectomy in 2020 Overweight (BMI 25.0-29.9) Right ureteral stone Surgical History Surgical History History of abdominal surgery History of appendectomy laparoscopic appendectomy February 2021 History of cholecystectomy 2010, laparoscopic History of hysterectomy 2013, ovaries removed each year the next 2 years History of incisional hernia repair laparoscopic incisional hernia repair July 2021 [facility] S/P laparoscopic-assisted sigmoidectomy February 2021 at [place], [place] Family History Family History Other Carcinoma of colon Other Diabetes mellitus Grandparent Heart attack Other Family history of coronary artery disease Social History Social History Smoking status: Never smoker Second hand tobacco smoke exposure: No Alcohol intake: current Drinks per week: 6 Substance use: never Substance use type: does not use Lack of Transportation: No Lack of Food: Never True Current Housing: I Have Housing Concerned About Future Housing: No Difficulty Paying Gas/Electric Bills: No Difficulty Paying for Meds: No Currently Unemployed: No Educ
[2023-06-26 13:11] VITALS: BP 131/64; PULSE 73; RESP 23; O2SAT 100
[2023-06-26 13:21] VITALS: BP 108/71; PULSE 68; RESP 18; O2SAT 99
[2023-06-26 13:31] VITALS: BP 105/68; PULSE 71; RESP 20; O2SAT 100
--- NOTE | 2023-06-26 13:57 | PM.IMPN ---
Progress Note: A&P Assessment and Plan (1) Abdominal pain: Code(s): R10.9 - Unspecified abdominal pain Status: Acute Assessment and Plan: patient presented to the ED due to 2 days of abdominal pain. CT abdomen pelvis unremarkable. Lipase within normal limits. History of appendectomy and cholecystectomy. Start on IV Protonix 40 mg b.i.d.. GI consulted appreciate recommendations EGD performed revealing gastritis. Advance diet as tolerated. (2) UTI (urinary tract infection): Code(s): N39.0 - Urinary tract infection, site not specified Status: Acute Assessment and Plan: Patient was found to have cloudy urine, 1+ leukocyte esterase and 11-20 wbc's. Urine culture no growth. Rocephin discontinued (3) History of abdominal surgery: Code(s): Z98.890 - Other specified postprocedural states Status: Acute Assessment and Plan: Patient with history of colon resection in 2020, appendectomy in 2020, 6 hernia repairs in 2020 and cholecystectomy in 2010. Patient underwent abdominal adhesion removal in November of 2022. Subjective Date/time seen: 06/26/23 13:57 Interval history: Patient continues to have abdominal pain. Patient had EGD today showed revealing gastritis. I have talked with GI and they did not believe that there is any further workup needed at this time. Advance diet at this time. Exam Narrative: GENERAL: Comfortable, no acute distress HENMT: moist mucous membranes EYES: EOM intact b/l NECK: no lymphadenopathy RESPIRATORY: clear to auscultation CARDIO: RRR GI: soft, Diffuse tenderness to palpation, distension, bowel sounds present SKIN: no rashes EXTREMITIES: no edema, redness or tenderness Objective Data Vital Signs Vital Signs: Vital Signs - 24 hr 06/25/23 14:00 06/25/23 21:24 06/26/23 06:00 Temperature 97.9 F 98.7 F 98.4 F Pulse Rate 69 72 70 Respiratory Rate 16 14 14 Blood Pressure 112/81 114/72 119/74 Pulse Oximetry 100 98 99 Oxygen Delivery 06/26/23 08:00 06/26/23 12:04 06/26/23 13:11 Temperature 97.1 F L Pulse Rate 64 73 Respiratory Rate 16 23 H Blood Pressure 116/87 131/64 Pulse Oximetry 99 100 Oxygen Delivery Room Air Room Air Room Air 06/26/23 13:21 06/26/23 13:31 Temperature Pulse Rate 68 71 Respiratory Rate 18 20 Blood Pressure 108/71 105/68 Pulse Oximetry 99 100 Oxygen Delivery Room Air Room Air Intake/Output Intake/Output: Intake & Output 06/23/23 06/24/23 06/25/23 06/26/23 23:59 23:59 23:59 23:59 Intake Total 1000 1172 648 150 Output Total 1400 600 Balance 1000 -228 48 150 Meds/Results Medications: Active Medications Generic Name Dose Route Start Last Admin Trade Name Freq PRN Reason Stop Dose Admin Acetaminophen 650 mg 06/24/23 09:12 06/24/23 20:07 Acetaminophen 325 Mg Tablet PO 650 mg Q4H PRN Administration Mild Pain (1-3) or Fever Hydrocodone Bitart/Acetaminophen 1 tab 06/25/23 07:37 06/26/23 06:10 Hydrocodone/Acetaminophen (*Crx) 5-325 Mg Tablet PO 1 tab Q6H PRN Administration Pain Rated 4-6 Cyclobenzaprine HCl 5 mg 06/24/23 12:44 06/26/23 06:10 Cyclobenzaprine Hcl 5 Mg Tablet PO 5 mg Q8H PRN Administration Muscle Spasm Ceftriaxone Sodium 1 gm in 50 mls @ 100 mls/hr 06/24/23 09:00 06/26/23 08:49 Rocephin 1 Gm/Ns 50 Ml IVPB Infused Q24H WILEY Infusion Morphine Sulfate 2 mg 06/25/23 13:50 06/26/23 08:18 Morphine Sulfate (*Crx) 2 Mg/Ml Inj IV PUSH 2 mg Q4H PRN Administration Pain Rated 7-10 Pantoprazole Sodium 40 mg 06/24/23 21:00 06/26/23 08:17 Pantoprazole Sodium Iv 40 Mg Vial IV PUSH 40 mg Q12HR WILEY Administration Simethicone 80 mg 06/24/23 13:00 06/26/23 08:19 Simethicone 80 Mg Tab.Chew PO 80 mg QID WILEY Administration Radiology Results: ITS Impressions Abdomen/Pelvis CT 06/23/23 22:10 IMPRESSION: 1. No CT correlate for
[2023-06-26 21:15] VITALS: BP 102/75; PULSE 75; RESP 12; TEMP 36.1; O2SAT 99
[2023-06-27] MEDS: MORPHINE SULFATE (*CRX) 2 MG/ML INJ IV PUSH ×2 (04:26→09:18)
[2023-06-27 05:31] VITALS: BP 102/65; PULSE 64; RESP 12; TEMP 36.1; O2SAT 98
[2023-06-27 07:03] LABS: Basophils Absolute Auto 0.1 K/mm3 (0.0-0.1); Basophils Percent Auto 0.9 % (0.2-1.2); Eosinophils Absolute Auto 0.2 K/mm3 (0-0.3); Eosinophils Percent Auto 3.9 % (0-4.4); Hematocrit 40.6 % (37.0-47.0); Hemoglobin 13.5 g/dL (12.0-15.0); Immature Granulocyte Absolute 0.01 K/mm3 (0.00-0.031); Immature Granulocyte Percent A 0.2 % (0-0.5); Lymphocytes Absolute Auto 2.17 K/mm3 (0.9-3.2); Lymphocytes Percent Auto 38.4 % (18.3-44.2); Mean Corpuscular HGB Conc 33.3 g/dl (32-36); Mean Corpuscular Hemoglobin 29.9 pg (26-34); Mean Platelet Volume 8.9 fl (7.4-10.4); Monocytes Absolute Auto 0.4 K/mm3 (0.1-0.6); Monocytes Percent Auto 6.7 % (2.6-8.5); Neutrophils Absolute Auto 2.8 K/mm3 (1.3-6.7); Neutrophils Percent Auto 49.9 % (45.5-73.1); Platelet Count Result 238 k/mm3 (150-375); Red Blood Count 4.51 M/mm3 (4.2-5.4); Red Cell Distribution Width 12.1 % (11.5-14.5); White Blood Count 5.7 K/mm3 (4.5-10.0)
[2023-06-27 07:18] LABS: Alanine Aminotransferase 24 U/L (6-35); Alkaline Phosphatase 69 U/L (38-126); Anion Gap 5 mmol/L (8-16); Aspartate Amino Transferase 34 U/L (14-36); Bilirubin,Total 0.5 mg/dL (0.2-1.3); Blood Urea Nitrogen 9 mg/dL (7-17); Calcium 9.2 mg/dL (8.4-10.2); Carbon Dioxide 28 mmol/L (22-30); Chloride 104 mmol/L (98-107); Estimated CRCL calculation 75 ml/min; Estimated Glomerular Filt Rate > 60; Glucose 102 mg/dL (65-110); Potassium 4.3 mmol/L (3.4-5.0); Sodium 137 mmol/L (137-145)
[2023-06-27] MEDS: PANTOPRAZOLE SODIUM IV 40 MG VIAL IV PUSH (08:22)
[2023-06-27] MEDS: SIMETHICONE 80 MG TAB.CHEW PO ×2 (08:22→13:28)
--- NOTE | 2023-06-27 12:10 | PM.DS ---
DS: Admitting Diagnosis Discharge Date 06/27/23 Admitting Diagnosis abdominal pain DS: Discharge Diagnosis Discharge Diagnosis (1) Abdominal pain: Code(s): R10.9 - Unspecified abdominal pain Status: Acute (2) UTI (urinary tract infection): Code(s): N39.0 - Urinary tract infection, site not specified Status: Acute (3) History of abdominal surgery: Code(s): Z98.890 - Other specified postprocedural states Status: Acute DS: Summary Hospital Course Hospital Course: This is a 42-year-old female with a significant past medical history of abdominal surgeries.? Patient had colon resection in 2020 due to recurrent diverticulitis, appendectomy in 2020, 6 hernia repairs in 2020, lap choly in 2010 and hysterectomy.? Patient does have history of recurrent obstructions and had abdominal adhesion removal in November of 2022.? She returned to the ED due to acute abdominal pain that she describes as feeling as if she is going into labor. Patient did have visible abdominal distension.? She is not have any lower abdominal pain although she feels as if she has not been able to pee for the past several days.? Patient was bladder scanned and was found to have 450 cc in the bladder and was straight cathed.? Urine suspicious for UTI with +1 leukocyte esterase and 11-20 wbc's and started on Rocephin.? Urine was cultured and came back with no growth and Rocephin was discontinued.? CT abdomen pelvis did not reveal any acute findings for why patient was having upper abdominal pain.? She is started on IV Protonix and Gas-X.? Patient was started on clear liquid diet and with this she had abdominal discomfort distension each time she ate. GI was consulted and did an EGD. EGD revealed gastritis. Spoke with GI physician and he did not believe there is need for any further workup since patient has had a complete GI workup in the past eliminating the possibility for IBD. Discussed with patient that I recommend PPI, sucralfate and Zofran as well as a follow-up with PCP. Patient agreed to discharge home and follow PCP early this coming week. Her labs and vital signs are stable she is medically for discharge at this time. Time Spent with Patient Time attestation: Total time spent providing and/or coordinating discharge services: Exam Narrative: GENERAL: Comfortable, no acute distress HENMT: moist mucous membranes EYES: EOM intact b/l NECK: no lymphadenopathy RESPIRATORY: clear to auscultation CARDIO: RRR GI: soft, Diffuse tenderness to palpation, distension, bowel sounds present SKIN: no rashes EXTREMITIES: no edema, redness or tenderness DS: Data Data Completed and Pending Pending studies at discharge: Pending at discharge 06/26/23 13:11 Surgical [PTH] Routine Labs on day of discharge: Labs from last 24 hours 06/27/23 06:38 WBC 5.7 RBC 4.51 Hgb 13.5 Hct 40.6 MCV 90.0 MCH 29.9 MCHC 33.3 RDW 12.1 Plt Count 238 MPV 8.9 Immature Gran % (Auto) 0.2 Neut % (Auto) 49.9 Lymph % (Auto) 38.4 [place] % (Auto) 6.7 Eos % (Auto) 3.9 Baso % (Auto) 0.9 Lymph # (Auto) 2.17 [place] # (Auto) 0.4 Eos # (Auto) 0.2 Baso # (Auto) 0.1 Abs Immat Gran (auto) 0.01 Absolute Neuts (auto) 2.8 Absolute Nucleated RBC 0.0 Nucleated RBC % 0.0 Sodium 137 Potassium 4.3 Chloride 104 Carbon Dioxide 28 Anion Gap 5 L BUN 9 Creatinine 0.70 Estim Creat Clear Calc 75 Estimated GFR > 60 Glucose 102 Calcium 9.2 Total Bilirubin 0.5 AST 34 ALT 24 Alkaline Phosphatase 69 Total Protein 7.0 Albumin 4.0 Discharge Plan Discharge Attending physician on discharge: Nancy Ramirez Consulting providers: Grady Argueta Discharging Clinician: Elva Flores Patient Disposition: Home, Self-Care Activity: as tolerated Diet: bland and low fiber Discharge Instructions: Pantoprazole 40 mg twice daily Sucralfate up to 4 times daily for abdominal distention and disc
== END 2023-06-27 13:42 | disposition home or self-care (01) ==
LOC: ANHED 21:15 → ANH3MEDSUR 06-24 03:05
PROVIDERS: Internal Medicine Critical Care Medicine; Internal Medicine Gastroenterology; Admitting Provider Internal Medicine; Emergency Provider Emergency Medicine; PCP Internal Medicine; Visit Provider Hospitalist
PROC: 0DJ08ZZ Inspection of Upper Intestinal Tract, Via Natural or Artificial Opening Endoscopic (ICD-10-PCS; CPT 43235; principal; 2023-06-26 13:00)
DX: K29.70 Gastritis, unspecified, without bleeding (principal); N39.0 Urinary tract infection, site not specified; E66.3 Overweight; Z68.24 Body mass index [BMI] 24.0-24.9, adult; F10.90 Alcohol use, unspecified, uncomplicated; Z23 Encounter for immunization; Z90.710 Acquired absence of both cervix and uterus; Z90.49 Acquired absence of other specified parts of digestive tract; Z98.890 Other specified postprocedural states
CPT/HCPCS: 43239; 36415; 74018; 74177; 80053; 81001; 81025; 83605; 83690; 85025; 87081; 87086; 88305; 90471; 90686; 96361; 96374; 96375; 96376; 99285; A9270; C9113; G0008; G0378; J0696; J1170; J1885; J2001; J2270; J2405; J2704; J7030; J7120; Q9967

== ENCOUNTER 2024-02-14 12:03 | Emergency (ER) | payer OTHER, SELFPAY ==
--- NOTE | ~2024-02-14 | CT_ITS ---
EXAMINATION: CT abdomen pelvis w con DATE: 02/14/2024 13:17 INDICATION: Nausea, vomiting and right abdominal pain TECHNIQUE: Computed tomography (CT) of the abdomen and pelvis was performed with 100 cc Omnipaque 350 intravenous contrast. The dose-length product was 315.91 mGy-cm. Automated exposure control and iterative reconstruction technique were employed. COMPARISON: CT dated 06/23/2023 FINDINGS: There are fluid-filled small bowel loops left abdomen, likely related to normal peristalsis . Heart size normal. No significant pleural or pericardial effusion. No significant vascular abnormal ity. No lymphadenopathy. Fatty infiltration of the liver. Status post cholecystectomy. The spleen, pancreas, adrenal glands an d kidneys are unremarkable. There is a [place] ventral abdominal hernia at the level of the umbilic us with nonobstructed bowel. No evidence for bowel obstruction. No free air or free fluid. IMPRESSION: 1. No acute abdominal abnormality. No findings to account for patient's symptoms. Reviewed, dictated and finalized at location B. IMPRESSION: 1. No acute abdominal abnormality. No findings to account for patient's symptom s.
[2024-02-14 12:08] VITALS: BP 128/83; PULSE 80; RESP 15; O2SAT 100
--- NOTE | 2024-02-14 12:14 | PC.NURSE ---
hx of hysterectomy, hernia repair x6, partial intestine removal, gall bladder removal, and appendix removal
[2024-02-14 12:28] LABS: Basophils Absolute Auto 0.1 K/mm3 (0.0-0.1); Basophils Percent Auto 1.1 % (0.2-1.2); Eosinophils Absolute Auto 0.1 K/mm3 (0-0.3); Eosinophils Percent Auto 1.2 % (0-4.4); Hematocrit 40.7 % (37.0-47.0); Hemoglobin 13.5 g/dL (12.0-15.0); Immature Granulocyte Absolute 0.02 K/mm3 (0.00-0.031); Immature Granulocyte Percent A 0.3 % (0-0.5); Lymphocytes Absolute Auto 2.66 K/mm3 (0.9-3.2); Lymphocytes Percent Auto 36.3 % (18.3-44.2); Mean Corpuscular HGB Conc 33.2 g/dl (32-36); Mean Corpuscular Hemoglobin 29.5 pg (26-34); Mean Corpuscular Volume 88.9 fl (80-100); Mean Platelet Volume 9.3 fl (7.4-10.4); Monocytes Absolute Auto 0.5 K/mm3 (0.1-0.6); Monocytes Percent Auto 6.3 % (2.6-8.5); Neutrophils Percent Auto 54.8 % (45.5-73.1); Platelet Count Result 293 k/mm3 (150-375); Red Blood Count 4.58 M/mm3 (4.2-5.4); Red Cell Distribution Width 12.4 % (11.5-14.5); White Blood Count 7.3 K/mm3 (4.5-10.0)
--- NOTE | 2024-02-14 12:32 | ED.ABDPAIN ---
HPI - Abdominal Pain General Chief Complaint: Abdominal Pain Stated Complaint: RUQ abd pain Time Seen by Provider: 02/14/24 12:18 History of Present Illness HPI narrative: patient who has had history of cholecystectomy, hysterectomy, appendectomy, presents here with 1 day of right-sided abdominal pain, nausea vomiting. Related Data Allergies Allergy/AdvReac Type Severity Reaction Status Date / Time No Known Allergies Allergy Verified 02/14/24 12:06 Review of Systems Review of Systems: All systems reviewed & are unremarkable except as noted in HPI and below PMFSH Past Medical History Medical History Acute diverticulitis resolved after sigmoidectomy in 2020 Overweight (BMI 25.0-29.9) Right ureteral stone Surgical History Surgical History History of abdominal surgery History of appendectomy laparoscopic appendectomy February 2021 History of cholecystectomy 2010, laparoscopic History of hysterectomy 2013, ovaries removed each year the next 2 years History of incisional hernia repair laparoscopic incisional hernia repair July 2021 [facility] S/P laparoscopic-assisted sigmoidectomy February 2021 at [place], [place] Family History Family History Other Carcinoma of colon Other Diabetes mellitus Grandparent Heart attack Other Family history of coronary artery disease Social History Social History Smoking status: Never smoker Second hand tobacco smoke exposure: No Alcohol intake: current Drinks per week: 6 Substance use: never Substance use type: does not use Lack of Transportation: No Lack of Food: Never True Current Housing: I Have Housing Concerned About Future Housing: No Difficulty Paying Gas/Electric Bills: No Difficulty Paying for Meds: No Currently Unemployed: No Education: Associate Degree Difficulty w/ Childcare or Family Care: No Gender identity (if verbalized by the patient): Female Spiritual care concerns: No Exam Narrative: EXAMINATION OF ORGAN SYSTEMS/BODY AREAS: Constitutional: Vital signs per nursing GENERAL: appears uncomfortable in bed HEAD: Normal with no signs of head trauma. EYES: EOMI, conjunctiva normal ENT: Hearing grossly intact LUNGS: Nonlabored breathing. HEART: [Regular rate and rhythm] ABD: [Soft], [tender to palpation] diffusely but mostly to the right side EXT: Normal range of motion SKIN: [No rashes or lesions.] NEURO: [Alert and oriented x 3. No gross focal sensory or strength deficits.] PSYCH: Normal affect Course Vital Signs Vital signs: Vital Signs Pulse Rate 80 02/14/24 12:08 Respiratory Rate 15 02/14/24 12:08 Blood Pressure 128/83 02/14/24 12:08 Pulse Oximetry 100 02/14/24 12:08 Pulse Rate 62 02/14/24 13:31 Respiratory Rate 15 02/14/24 13:31 Blood Pressure 135/88 02/14/24 13:31 Pulse Oximetry 100 02/14/24 13:31 MDM - Abdominal Pain MDM Narrative Medical decision making narrative: 1) Differential diagnosis: Obstruction, gastritis or gastroenteritis, pancreatitis 2) Comorbidities: gastritis 3) External notes reviewed: admission orders 4) History sources independently obtained from: patient's friend at bedside 5) Discussion of management with: [] 6) Independent interpretation of: [] 7) Diagnostic tests or therapies considered but not ordered: [] 8) Social determinants of health: [] 9) Shared decision making: Patient presented to the ED with complaint of [abdominal pain and vomiting]. Vitals [were within acceptable limits]. Physical exam revealed mild discomfort of her entire abdomen. Based on the patient's history and physical exam, my differential includes but is not limited to [gastritis, gastroenteritis, SBO, also consi
[2024-02-14 12:46] LABS: Alanine Aminotransferase 23 U/L (6-35); Albumin Level 4.5 g/dL (3.5-5.1); Alkaline Phosphatase 121 U/L (38-126); Anion Gap 7 mmol/L (4-12); Aspartate Amino Transferase 34 U/L (14-36); Bilirubin,Total 0.4 mg/dL (0.2-1.3); Blood Urea Nitrogen 14 mg/dL (7-17); Calcium 9.3 mg/dL (8.4-10.2); Carbon Dioxide 25 mmol/L (22-30); Chloride 107 mmol/L (98-107); Estimated CRCL calculation 85 ml/min; Estimated Glomerular Filt Rate > 60; Glucose 102 mg/dL (65-110); Lipase 362 U/L (23-300); Sodium 139 mmol/L (137-145)
[2024-02-14] MEDS: MORPHINE SULFATE (*CRX) 4 MG/ML INJ IV PUSH (12:53)
[2024-02-14] MEDS: FAMOTIDINE 20 MG/2 ML VIAL IV PUSH (12:53)
[2024-02-14] MEDS: LACTATED RINGERS 1,000 ML 999 ML IV CONT (12:53)
[2024-02-14] MEDS: ONDANSETRON INJ 4 MG/2 ML VIAL IV PUSH (12:54)
[2024-02-14 12:55] LABS: Appearance Urine Clear (Clear); Bilirubin Urine Negative (Negative); Blood Urine Negative (Negative); Color Urine Yellow (Yellow); Glucose Urine UA Negative (Negative); Ketones Urine Negative (Negative); Leukocyte Esterase Ur Negative LEU/UL (Negative); Nitrate Urine Negative (Negative); Protein Urine Negative (Negative); Specific Grav Ur 1.013 (1.001-1.035); Urobilinogen Urine 0.2 mg/dL (<2.0)
[2024-02-14 12:58] LABS: Add Urine Microscopic? NO
[2024-02-14 13:31] VITALS: BP 135/88; PULSE 62; RESP 15; O2SAT 100
[2024-02-14] MEDS: fentaNYL CITRATE INJ (*CRX) 100 MCG/2 ML VIAL 20 MCG IV PUSH (13:40)
[2024-02-14 14:10] VITALS: BP 120/80; PULSE 64; RESP 15; TEMP 36.9; O2SAT 100
== END 2024-02-14 14:11 | disposition home or self-care (01) ==
PROVIDERS: Family Medicine; Emergency Provider Emergency Medicine; PCP Internal Medicine
DX: R10.11 Right upper quadrant pain (principal); Z87.442 Personal history of urinary calculi
CPT/HCPCS: 36415; 74177; 80053; 81003; 83690; 85025; 96361; 96374; 96375; 99284; J2270; J2405; J3010; J7120; Q9967

== ENCOUNTER 2024-09-02 09:42 | Emergency (ER) | payer OTHER, SELFPAY ==
--- NOTE | ~2024-09-02 | CT_ITS ---
EXAMINATION: CT abdomen pelvis w con DATE: 09/02/2024 10:28 INDICATION: Lower abdominal pain TECHNIQUE: Computed tomography (CT) of the abdomen and pelvis was performed with 100 mL Omnipaque-350 intravenous contrast. Automated exposure control and iterative reconstruction technique were employe d. The dose-length product was 383.18 mGy-cm. COMPARISON: 02/14/2024 FINDINGS: Lung bases are clear. Heart size normal. No pericardial or pleural effusion. Unchanged mild intra and extra hepatic biliary ductal dilation likely related to prior cholecystectomy with surgical clips at the gallbladder fossa. Liver, spleen, pancreas, bilateral adrenal glands and kidneys are normal. Pos toperative change of prior appendectomy at the tip the cecum. There are few scattered clonic divertic angela without adjacent from trace stranding to suggest diverticulitis. There is no anastomotic suture l ine in the distal sigmoid colon consistent with prior partial sigmoidectomy. There is chronic midline ventral diastases. Bladder is normal. The uterus is not identified and has likely been surgically re sected. No free intraperitoneal gas or fluid. No pathologically enlarged abdominal or pelvic lymphade nopathy. Bones are unremarkable. IMPRESSION: 1. No acute intra-abdominal/pelvic process. 2. Postoperative changes of prior cholecystectomy, appendectomy and partial sigmoid colon resection. 3. Chronic ventral diastases. Reviewed, dictated and finalized at location A. ER SIFTER MACHINE IMPRESSION: 1. No acute intra-abdominal/pelvic process. 2. Postoperative changes of prior cholecystectomy, appendectomy and partial sig moid colon resection. 3. Chronic ventral diastases.
--- NOTE | 2024-09-02 09:48 | ED_ITS ---
HPI - Abdominal Pain General Chief Complaint: Abdominal Pain Stated Complaint: abd pain Time Seen by Provider: 09/02/24 09:46 Source: patient Mode of arrival: ambulatory Limitations: no limitations History of Present Illness HPI narrative: Patient is a 43 y/o female who presents to the ED with c/o abdominal pain. patient reports she woke up this morning around 4:30 a.m. with pain throughout her bilateral lower quadrants. States pain has continued to worsen, worse with any eating or drinking. She has history of multiple previous abdominal surgeries: partial small-bowel resection r/t diverticulitis, appendectomy, cholecystectomy, hernia repair, hysterectomy. C/o nausea, denies vomiting, diarrhea. Last BM was yesterday and normal. Reports feeling the urge to urinate but states she is unable right now. Denies issues with urination yesterday. Denies fevers. Related Data Allergies Allergy/AdvReac Type Severity Reaction Status Date / Time No Known Allergies Allergy Verified 02/14/24 12:06 Review of Systems 2 Review of Systems: All systems reviewed & are unremarkable except as noted in HPI. All systems reviewed & are unremarkable except as noted in HPI and below PMFSH Past Medical History Medical History Overweight (BMI 25.0-29.9) Right ureteral stone Acute diverticulitis resolved after sigmoidectomy in 2020 Surgical History Surgical History History of abdominal surgery History of incisional hernia repair laparoscopic incisional hernia repair July 2021 [facility] History of appendectomy laparoscopic appendectomy February 2021 S/P laparoscopic-assisted sigmoidectomy February 2021 at [place], [place] History of hysterectomy 2013, ovaries removed each year the next 2 years History of cholecystectomy 2010, laparoscopic Family History Family History Other Carcinoma of colon Other Diabetes mellitus Grandparent Heart attack Other Family history of coronary artery disease Social History Social History Smoking status: Never smoker Second hand tobacco smoke exposure: No Alcohol intake: current Drinks per week: 6 Substance use: never Substance use type: does not use Lack of Transportation: No Lack of Food: Never True Current Housing: I Have Housing Concerned About Future Housing: No Difficulty Paying Gas/Electric Bills: No Difficulty Paying for Meds: No Currently Unemployed: No Education: Associate Degree Difficulty w/ Childcare or Family Care: No Gender identity (if verbalized by the patient): Female Spiritual care concerns: No Exam 2 Narrative: GENERAL: Well appearing, well-nourished, non-toxic, in no acute distress. HEAD: Normocephalic, atraumatic. RESPIRATORY: Airway patent, respirations nonlabored. Clear to auscultation bilaterally, no rales, rhonchi, wheezing. CARDIOVASCULAR: Regular rate and rhythm without murmurs, rubs, or gallops. ABDOMINAL: Soft, diffuse tenderness or abdomen, worst in the right lower and left lower quadrants. Nondistended. Normoactive BS. MUSCULOSKELETAL: Moves all extremities. No gross deformities. SKIN: Warm, dry, normal color. NEURO: A&O X3. Speech clear. Cranial nerves II-XII grossly intact. Steady gait. No ataxic movements. PSYCHIATRIC: Appropriate mood and affect. Normal interaction. Course Vital Signs Vital signs: Vital Signs Temperature 97.2 F L 09/02/24 10:00 Pulse Rate 70 09/02/24 10:00 Respiratory Rate 16 09/02/24 10:00 Blood Pressure 144/95 H 09/02/24 10:00 Pulse Oximetry 100 09/02/24 10:00 Temperature 97.9 F 09/02/24 11:25 Pulse Rate 76 09/02/24 11:25 Respiratory Rate 18 09/02/24 11:25 Blood Pressure 128/93 H 09/02/24 11:25 Pulse Oximetry 100 09/02/24 11:25 MDM - Abdominal Pain MDM Narrative Medical decision making narrative: Patient presented to ED with lower abdominal pain, history of multiple previous abdominal surgeries. Vital signs are stable upon arrival. Patient in no acute distress. Laboratory studies are unremarkable. No leukocytosis or anemia. CMP is unremarkable. Normal electrolytes and kidney function. Normal LFTs. Lipase 303. Patient denying any upper abdominal pain. UA with elevated specific gravity, otherwise negative, no signs of infection. Patient given fluids in the ED. CT of the abdomen/pelvis was obtained and unremarkable. No intra-abdominal acute findings. Does show stable postoperative changes. Patient was updated on lab and imaging results, overall reassuring workup. Suspect gastroenteritis picture. Will discharge with Bentyl and Zofran for home use. Patient advised to continue Tylenol, recommended close follow-up with PCP for further evaluation. Given return precautions. She agrees with plan. Discharged in stable condition. Medical Records Attestation: I reviewed the patient's medical records. Lab Data Attestation: I reviewed the patient's lab results. 09/02/24 10:18 09/02/24 10:18 Labs: Lab Results 09/02/24 09/02/24 Range/Units 10:18 11:37 WBC 6.4 (4.5-10.0) K/mm3 RBC 4.93 (4.2-5.4) M/mm3 Hgb 14.3 (12.0-15.0) g/dL Hct 43.7 (37.0-47.0) % MCV 88.6 (80-100) fl MCH 29.0 (26-34) pg MCHC 32.7 (32-36) g/dl RDW 12.6 (11.5-14.5) % Plt Count 289 (150-375) k/mm3 MPV 9.2 (7.4-10.4) fl Immature Gran % (Auto) 0.2 (0-0.5) % Neut % (Auto) 54.4 (45.5-73.1) % Lymph % (Auto) 35.5 (18.3-44.2) % [place] % (Auto) 6.6 (2.6-8.5) % Eos % (Auto) 1.9 (0-4.4) % Baso % (Auto) 1.4 H (0.2-1.2) % Lymph # (Auto) 2.26 (0.9-3.2) K/mm3 [place] # (Auto) 0.4 (0.1-0.6) K/mm3 Eos # (Auto) 0.1 (0-0.3) K/mm3 Baso # (Auto) 0.1 (0.0-0.1) K/mm3 Abs Immat Gran (auto) 0.01 (0.00-0.031) K/mm3 Absolute Neuts (auto) 3.5 (1.3-6.7) K/mm3 Absolute Nucleated RBC 0.000 (0.0-0.012) K/mm3 Nucleated RBC % 0.0 (0.0-0.2) % Sodium 139 (137-145) mmol/L Potassium 4.0 (3.4-5.0) mmol/L Chloride 104 (98-107) mmol/L Carbon Dioxide 29 (22-30) mmol/L Anion Gap 6 (4-12) mmol/L BUN 12 (7-17) mg/dL Creatinine 0.70 (0.7-1.0) mg/dL Estim Creat Clear Calc 74 ml/min Estimated GFR > 60 (59 - ) Glucose 104 (65-110) mg/dL Lactic Acid 1.1 (0.7-2.0) mmol/L Calcium 9.9 (8.4-10.2) mg/dL Total Bilirubin 0.6 (0.2-1.3) mg/dL AST 31 (14-36) U/L ALT 29 (6-35) U/L Alkaline Phosphatase 130 H (38-126) U/L Total Protein 8.0 (6.3-8.2) g/dL Albumin 4.8 (3.5-5.1) g/dL Lipase 303 H (23-300) U/L Urine Color Yellow (Yellow) Urine Appearance Clear (Clear) Urine pH 7.0 (5.0-9.0) Ur Specific [place] > 1.045 H (1.001-1.035) Urine Protein Negative (Negative) mg/dL Urine Glucose (UA) Negative (Negative) mg/dL Urine Ketones Negative (Negative) mg/dL Ur Blood (Man) Negative (Negative) Urine Nitrate Negative (Negative) Urine Bilirubin Negative (Negative) Urine Urobilinogen 0.2 (<2.0) mg/dL Leukocyte Esterase Rfl Negative (Negative) YESSI/UL Imaging Data Attestation: I personally reviewed and interpreted this imaging study as follows: Radiologist's impression: ITS Impressions Abdomen/Pelvis CT 09/02/24 10:34 IMPRESSION: 1. No acute intra-abdominal/pelvic process. 2. Postoperative changes of prior cholecystectomy, appendectomy and partial sigmoid colon resection. 3. Chronic ventral diastases. Discharge Plan Discharge Clinical Impression: Bilateral lower abdominal pain Patient Disposition: Home, Self-Care Condition: Stable Instructions: Antibiotic Form, Gastroenteritis (ED), Abdominal Pain (ED) Additional Instructions: Utilize zofran as needed for further nausea. Recommend Tylenol, ibuprofen, Bentyl as needed for further abdominal discomfort. Increase fluid intake. Recommend electrolyte rich fluids, gatorade, pedialyte, body armour. Recommend clear liquids or bland diet until symptoms improve, such as bananas, rice, applesauce, toast, or crackers. Follow up with your primary care doctor for further evaluation. Return to the ED if you experience worsening or severe symptoms, unable to keep down food or drink, severe pain, fevers, rectal bleeding, vomiting blood, or any other symptoms of concern. Patient Language: Maltese Prescriptions: New dicyclomine 20 mg tablet 20 mg PO TID PRN (Reason: Abdominal Discomfort) Qty: 15 0RF ondansetron 4 mg tablet,disintegrating 4 mg PO Q8H PRN (Reason: nausea and vomiting) Qty: 15 0RF No Action omeprazole 40 mg capsule,delayed release(DR/EC) 40 mg PO BID Qty: 60 0RF sucralfate 1 gram tablet 1 g PO Q6H PRN (Reason: abdominal distention) Qty: 60 0RF ondansetron 4 mg tablet,disintegrating 4 mg PO Q8H PRN (Reason: nausea and vomiting) Qty: 60 0RF famotidine 20 mg tablet 20 mg PO DAILY Qty: 30 0RF dicyclomine 20 mg tablet 20 mg PO TID Qty: 30 0RF ondansetron 4 mg tablet,disintegrating 4 mg PO Q8H PRN (Reason: nausea and vomiting) Qty: 10 0RF Follow-up/Referrals: Sol,Dipesh Goodman MD [Primary Care Provider] - Time of Disposition: 12:19
[2024-09-02 10:00] VITALS: BP 144/95; PULSE 70; RESP 16; TEMP 36.2; O2SAT 100
[2024-09-02] MEDS: SODIUM CHLORIDE 0.9% IV 1,000 ML 999 ML IV CONT (10:12)
[2024-09-02] MEDS: ONDANSETRON INJ 4 MG/2 ML VIAL IV PUSH (10:12)
[2024-09-02] MEDS: MORPHINE SULFATE (*CRX) 4 MG/ML INJ IV PUSH (10:12)
--- NOTE | 2024-09-02 10:20 | PC.NURSE ---
Patient unable to urinate at this time. patient declines straight cath and reports that she will attempt go give urine sample with her fluids.
[2024-09-02 10:30] LABS: Basophils Absolute Auto 0.1 K/mm3 (0.0-0.1); Basophils Percent Auto 1.4 % (0.2-1.2); Eosinophils Absolute Auto 0.1 K/mm3 (0-0.3); Eosinophils Percent Auto 1.9 % (0-4.4); Hematocrit 43.7 % (37.0-47.0); Hemoglobin 14.3 g/dL (12.0-15.0); Immature Granulocyte Absolute 0.01 K/mm3 (0.00-0.031); Immature Granulocyte Percent A 0.2 % (0-0.5); Lymphocytes Absolute Auto 2.26 K/mm3 (0.9-3.2); Lymphocytes Percent Auto 35.5 % (18.3-44.2); Mean Corpuscular HGB Conc 32.7 g/dl (32-36); Mean Corpuscular Volume 88.6 fl (80-100); Mean Platelet Volume 9.2 fl (7.4-10.4); Monocytes Absolute Auto 0.4 K/mm3 (0.1-0.6); Monocytes Percent Auto 6.6 % (2.6-8.5); Neutrophils Absolute Auto 3.5 K/mm3 (1.3-6.7); Neutrophils Percent Auto 54.4 % (45.5-73.1); Platelet Count Result 289 k/mm3 (150-375); Red Blood Count 4.93 M/mm3 (4.2-5.4); Red Cell Distribution Width 12.6 % (11.5-14.5); White Blood Count 6.4 K/mm3 (4.5-10.0)
[2024-09-02 10:42] LABS: Alanine Aminotransferase 29 U/L (6-35); Albumin Level 4.8 g/dL (3.5-5.1); Alkaline Phosphatase 130 U/L (38-126); Anion Gap 6 mmol/L (4-12); Aspartate Amino Transferase 31 U/L (14-36); Bilirubin,Total 0.6 mg/dL (0.2-1.3); Blood Urea Nitrogen 12 mg/dL (7-17); Calcium 9.9 mg/dL (8.4-10.2); Carbon Dioxide 29 mmol/L (22-30); Chloride 104 mmol/L (98-107); Estimated CRCL calculation 74 ml/min; Estimated Glomerular Filt Rate > 60; Glucose 104 mg/dL (65-110); Lactic Acid Reflex 1.1 mmol/L (0.7-2.0); Lipase 303 U/L (23-300); Sodium 139 mmol/L (137-145)
[2024-09-02] MEDS: DICYCLOMINE HCL 10 MG CAPSULE 20 MG PO (11:16)
[2024-09-02] MEDS: KETOROLAC 30 MG/ML VIAL (*BKC) IV PUSH (11:17)
[2024-09-02 11:25] VITALS: BP 128/93; PULSE 76; RESP 18; TEMP 36.6; O2SAT 100
[2024-09-02 11:45] LABS: Add Urine Microscopic? NO; Appearance Urine Clear (Clear); Bilirubin Urine Negative (Negative); Blood Urine Negative (Negative); Color Urine Yellow (Yellow); Glucose Urine UA Negative (Negative); Ketones Urine Negative (Negative); Leukocyte Esterase Ur Negative LEU/UL (Negative); Nitrate Urine Negative (Negative); Protein Urine Negative (Negative); Specific Grav Ur > 1.045 (1.001-1.035); Urobilinogen Urine 0.2 mg/dL (<2.0)
== END 2024-09-02 12:40 | disposition home or self-care (01) ==
PROVIDERS: Emergency Provider Physician Assistant; PCP Internal Medicine
DX: R10.32 Left lower quadrant pain (principal); R10.31 Right lower quadrant pain; Z90.49 Acquired absence of other specified parts of digestive tract; Z90.710 Acquired absence of both cervix and uterus; Z90.722 Acquired absence of ovaries, bilateral; M62.08 Separation of muscle (nontraumatic), other site
CPT/HCPCS: 36415; 74177; 80053; 81003; 83605; 83690; 85025; 96361; 96374; 96375; 99284; 99285; A9270; J1885; J2270; J2405; J7030; Q9967

== ENCOUNTER 2024-12-18 09:25 | Emergency (ER) | payer OTHER, SELFPAY ==
--- NOTE | ~2024-12-18 | CT_ITS ---
CT abdomen pelvis wo con Ordering provider: Kaden Hernandez MD History: 43 years Female with . flank pain . Comparison: None. Technique: CT abdomen and pelvis without IV and without oral contrast. Automated exposure control and iterative reconstruction technique were employed. The dose-length product was 193.44 mGy-cm. Findings: VISUALIZED LOWER CHEST: Dependent atelectatic changes. UPPER ABDOMINAL ORGANS: Liver: Normal. Gallbladder: Status post cholecystectomy. Spleen: Normal. Stomach/duodenum: Normal. Pancreas: Normal. Adrenals: Normal. Kidneys: Normal. PELVIC ORGANS: The bladder is underfilled with thickened wall. BOWEL AND MESENTERY: Colon: No evidence of diverticulitis. Postoperative changes seen in the rectosigmoid area. Fecal mate rial is loaded in the colon. Status post appendectomy. Small Bowel: Normal. No obstruction. Peritoneum/mesentery: No free air or free fluid. No mesenteric lymphadenopathy. RETROPERITONEUM: Normal aorta. No retroperitoneal lymphadenopathy. MUSCULOSKELETAL: Superficial soft tissues: Anterior abdominal wall bulges seen suggestive of hernia containing bowel a nd fat. Otherwise, The superficial soft tissues are normal. Bones: Age appropriate degenerative changes of the spine. IMPRESSION: 1. No evidence of appendicitis, diverticulitis or intestinal obstruction. 2. Constipation. Reviewed, dictated and finalized at location A.
--- OUTSIDE RECORDS SUMMARY | 2024-12-18 09:26 | XMS_ITS | Encounter Summary ---
Author Organization [facility] Address [address] [place] [address] Care Team Providers Care Manager Embalmer Funeral Director Name Role Phone Dipesh [place] MD Primary Care Provider [phone] Encounter Details Date Type Department Care Team (Late st Contact Info) Description 03/20/2022 Cretia's Creationst Message Enc [facility] Medical Group Orthopedic & Sports Medicine - [place] [address] Deidre Borjas, MEMBERSHIP COUNSELOR-C Still trying to get authorization for MRI Social History Tobacco Use Types Packs/Day Years Used Date Smoking Tobacco: Former Cigarettes Q uit: 04/06/1999 Smokeless Tobacco: Never Comments:non smoker Alcohol Use Standard Drinks/Week Comments Yes 0 (1 standard drink = 0.6 oz pur e alcohol) 2-3/ wk BEER AUDIT-C Answer Date Recorded Frequency of Alcohol Consumption 2-3 times a wee k 04/06/2019 Average Number of Drinks 1 or 2 019 Frequency of Binge Drinking Never 03/15 PHQ-2 Answer Date Recorded PHQ-2 Score - If the patient scores above 3, please move on to questions 3-9 0 02/18/2022 Comments No Sex and Gender Information Value Date Recorded Sex Assigned at Female 04/06/2019 9:20 AM CDT Legal Sex Female 7:15 PM CDT Gender Identity Female 04/06/2019 9:20 AM CDT Sexual Orientation Straight 04/06/2019 9: 20 AM CDT COVID-19 Exposure Response Date Recorded In the last 10 days, have waldo dyson been in contact with someone who was confirmed or suspected to have Coronavirus/COVID-19? No / Unsure 02/26/2022 1:04 PM CDT documented as of this encounter Functional Status * RETIRED Are you deaf or do you have serious difficulty hearing Answer Date of Assessment Author Status No 05/10/2019 11:06 PM CDT Acti ve * RETIRED Are you blind or do you have serious difficulty seeing, even when wearing glasses? Answer Date of Assessment Author Status No 05/10/2019 11:06 PM CDT Acti ve * Do you have serious difficulty walking or climbing stairs? Answer Date of Assessment Author Status No 05/10/2019 11:06 PM CDT Raul Baig RN Active * Do you have difficulty dressing or bathing? Answer Date of Assessment Author Status No 05/10/2019 11:06 PM CDT Raul Baig RN Active * Because of a physical, mental, or emotional condition, do you have difficulty doing errands alone such as visiting a doctor's office or shopping? Answer Date of Assessment Author Status No 05/10/2019 11:06 PM CDT Raul Baig RN Active documented as of this encounter Mental Status * Because of a physical, mental, or emotional condition, do you have serious difficulty concentrating, remembering, or making decisions? Answer Entry Date Author Status No 05/10/2019 11:06 PM CDT Raul Baig RN Active documented in this encounter Progress Notes * Jb Marquez MA - 03/20/2022 4:00 PM CDT Please advise. documented in this encounter Plan of Treatment Not on file documented as of this encounter Visit Diagnoses Not on filedocumented in this encounter Additional Health Concerns Infection Onset Date Last Indicated Resolved Time COVID-19 Patient Reported Positive 03/14/2024202304/05/2024 12:32 AM CDT documented as of this encounter Care Teams Manager Embalmer Funeral Director Relationship Specialty Start Date End Date Dipesh [place] MD [address] [place] [address] PCP - General INTERNAL MEDICINE 04/06/19 documented as of this encounter
--- OUTSIDE RECORDS SUMMARY | 2024-12-18 09:26 | XMS_ITS | Encounter Summary ---
Author Organization [facility] Address [address] [place] [address] Care Team Providers Care Digital Media Planner Name Role Phone Dipesh [place] MD Primary Care Provider [phone] Encounter Details Date Type Department Care Team (Latest Contact Info) Description 07/20/2018 Abstract [facility] Medical Group , Anthony Doyle MD Social History Tobacco Use Types Packs/Day Years Used Date Smoking Tobacco: Never Assessed Comments Unknown Sex and Gender Information Value Date Recorded Sex Assigned at Female 04/06/2019 9:20 AM CDT Legal Sex Female 7:15 PM CDT Gender Identity Female 04/06/2019 9:20 AM CDT Sexual Orientation Straight 04/06/2019 9: 20 AM CDT documented as of this encounter Plan of Treatment Not on file documented as of this encounter Visit Diagnoses Not on filedocumented in this encounter Additional Health Concerns Infection Onset Date Last Indicated Resolved Time COVID-19 Patient Reported Positive 03/14/2024202304/05/2024 12:32 AM CDT documented as of this encounter Care Teams Digital Media Planner Relationship Specialty Start Date End Date Dipesh [place] MD [address] [place] [address] PCP - General INTERNAL MEDICINE 04/06/19 documented as of this encounter
--- OUTSIDE RECORDS SUMMARY | 2024-12-18 09:26 | XMS_ITS | Clinical Summary ---
Author Organization [facility] Address [address] [place] [address] Care Team Providers Care Carbon Lamp Cleaner Name Role Phone Dipesh [place] MD Primary Care Provider [phone] Allergies No known active allergies Medications methylPREDNISol raymundo EDUARDO, (MEDROL DOSEPAK) 4 MG tabletIndicatio ns:Chest heaviness Follow package directions 1 each Active Active Problems Problem Noted Date Diagnosed Date Positive self-administered antigen test for COVI D-19 03/16/2024 Small bowel obstruction ([facility]) 2023 Abdominal distension 10/09/2023 Anxiety 10/09/2023 History of incisional hernia repair 10/09/2023 History of diverticulitis of colon 10/09/2023 S/P laparoscopic-assisted sigmoidectomy 02/24/20 21 Diverticulitis of colon 02/13/2021 Acute diverticulitis of intestine 01/31/2021 Diverticula, colon 01/31/2021 Renal stone 05/30/2019 Abdominal pain 05/10/2019 Resolved Problems Problem Noted Date Diagnosed Date Resolved Date COVID-19 06/05/2022 03/16/2024 Enteritis 05/12/2019 01/31/2021 Esophageal reflux 09/20/2012 01/31/2021 Immunizations Name Administration Dates Next Due Fluzone Intradermal Quad (IIV4) 09/19/2020 Influenza Adult (Generic) 06/27/2023,09/19/2020 PFIZER COVID-19 (ORIGINAL FO RMULATION, PURPLE CAP) mRNA, LNP-S, PF, 30 MCG/0.3 ML DOSE 11/20/2020,10/23/2020 Family History Medical History Relation Comments Diabetes Father Relation Status Comments Father Social History Tobacco Use Types Packs/Day Years Used Date Smoking Tobacco: Former Cigarettes 1 4 0 04/06/1995 - 04/06/1999 Smokeless Tobacco: Never Tobacco Cessation:Counseling Given: Not Answered Comments:N/a Alcohol Use Standard Drinks/Week Comments Yes 0 (1 standard drink = 0.6 oz pur e alcohol) 2-3/ wk BEER AUDIT-C Answer Date Recorded Frequency of Alcohol Consumption 2-3 times a wee k 04/06/2019 Average Number of Drinks 1 or 2 019 Frequency of Binge Drinking Never 03/15 PHQ-2 Answer Date Recorded Patient Health Questionnaire-2 Score 0 10/09/2023 Comments No Sex and Gender Information Value Date Recorded Sex Assigned at Female 04/06/2019 9:20 AM CDT Legal Sex Female 7:15 PM CDT Gender Identity Female 04/06/2019 9:20 AM CDT Sexual Orientation Straight 04/06/2019 9: 20 AM CDT Last Filed Vital Signs Vital Sign Reading Time Taken Comments Blood Pressure 122/82 10/09/2023 9:41 AM DIRECTOR OF PARKS AND RECREATION Pulse 83 10/09/2023 9:41 AM DIRECTOR OF PARKS AND RECREATION Temperature 36.5 C (97.7 F) 10/09/2023 9:41 AM DIRECTOR OF PARKS AND RECREATION Respiratory Rate 16 10/09/2023 9:41 AM DIRECTOR OF PARKS AND RECREATION Oxygen Saturation 99% 10/09/2023 9:41 AM DIRECTOR OF PARKS AND RECREATION Inhaled Oxygen Concentration - - Weight 64.4 kg (142 lb) 10/09/2023 9:41 AM DIRECTOR OF PARKS AND RECREATION Height 160 cm (5' 3 ) 10/09/2023 9:41 AM DIRECTOR OF PARKS AND RECREATION Body Mass Index 25.15 10/09/2023 9:41 AM DIRECTOR OF PARKS AND RECREATION Plan of Treatment Health Maintenance Due Date Last Done Comments Annual Physical 12/31/1983 Hepatitis C 1998 DTaP, Tdap and Td Vaccines ( 1 - Tdap) 12/31/1999 Hepatitis B Vaccines (1 of 3 - 19+ 3-dose series) 12/31/1999 Mammogram Screening 2020 COVID-19 Vaccine (3 - 2023-2 5 season) 2024 11/20/2020, 10/23/2020 PHQ-2 (Physician Sunbright) 09/14/2024 10/09/2023 HPV Vaccines Aged Out No longer eligi ble based on patient's age to complete this topic Meningococcal B Vaccine Aged Out No l onger eligible based on patient's age to complete this topic Meningococcal Vaccine Aged Out No mauro vladimir eligible based on patient's age to complete this topic Pneumococcal Vaccine: Pediatrics (0 to 5 Years) and At-Risk Patients (6 to 64 Years) Aged Out No longer eligible b ased on patient's age to complete this topic RSV Immunizations Under 20 Months Aged Out No longer eligible b ased on patient's age to complete this topic Insurance Care Teams Carbon Lamp Cleaner Relationship Specialty Start Date End Date Dipesh [place] MD [address] [place] [id number] PCP - General INTERNAL MEDICINE 04/06/19
--- OUTSIDE RECORDS SUMMARY | 2024-12-18 09:26 | XMS_ITS | Clinical Summary ---
Author Organization [facility] [employer] Address [address] [facility] [place] [address] Care Team Providers Care Wire Basket Maker Name Role Phone Dipesh [place] MD Primary Care Provider [phone] Dipesh [place] MD Unavailable [phone] Source Comments [facility],non-owned Affiliates and Associated Physician Practices is amultiple site organization consisting of ambulatory clinics and hospital sitesin [place], [place], [place] and [place]. This disclosure is being madepursuant to the Care Everywhere program and may not contain all information available regarding this patient. Last updated 18.[facility] [employer] Allergies No known active allergies Medications * Be aware that medications may not be up to date on this document. Alwaysverify current medications with the patient. Medication Sig Dispensed Refills Start Date End Date Status HYDROcodone-aceta minophen (NORCO) 5-325 MG tablet Take 1 (one) tablet to 2 (two) tablets by mouth every 4 hours as needed 12 tablet 02/15/2021 Active HYDROcodone-aceta minophen (NORCO) 5-325 MG tablet Take 1 (one) tablet by mouth every 6 hours as needed for Pain 20 tablet 02/23/2021 Active ondansetron, disintegrating, (ZOFRAN ODT) 4 MG tablet Take 1 (one) tablet by mouth every 6 hours as needed for Nausea/Vomiting Allow tablet to dissolve on the tongue 20 tablet 07/26/2021 Active docusate sodium (COLACE) 100 MG capsule Take 1 (one) capsule by mouth 2 times daily 0 07/26/2021 Active bisacodyl (DULCOLAX) 10 MG suppository Insert 1 (one) suppository into the rectum once daily as needed for Constipation 10 suppository 07/26/2021 Active polyethylene glycol 3350 (MIRALAX) 17 GM/SCOOP powder Take 17 (seventeen) g by mouth once daily 238 g 07/26/2021 Active traMADol (ULTRAM) 50 MG tablet Take 1 (one) tablet by mouth every 6 hours as needed for Pain 12 tablet 07/26/2021 Active Active Problems Problem Noted Date Diagnosed Date Appendicitis, acute 02/23/2021 RLQ abdominal pain 02/23/2021 S/P laparoscopic-assisted sigmoidectomy 02/24/20 21 Diverticulitis of colon 02/13/2021 Immunizations Name Administration Dates Next Due [facility] primary monoval ent 12+ yr 0.3mL Purple cap 11/20/2020,10/23/2020 Social History Tobacco Use Types Packs/Day Years Used Date Smoking Tobacco: Former Cigarettes Q uit: 02/04/2001 Smokeless Tobacco: Never Comments:quit 12 years ago Alcohol Use Standard Drinks/Week Comments Yes 0 (1 standard drink = 0.6 oz pur e alcohol) socially Sex and Gender Information Value Date Recorded Sex Assigned at Not on file Gender Identity Not on file Sexual Orientation Not on file Last Filed Vital Signs Vital Sign Reading Time Taken Comments Blood Pressure 111/78 07/26/2021 4:59 PM FIELD SUPPORT REPRESENTATIVE Pulse 88 07/26/2021 12:24 PM FIELD SUPPORT REPRESENTATIVE Temperature 36.7 C (98 F) 07/26/2021 12:24 PM FIELD SUPPORT REPRESENTATIVE Respiratory Rate 18 07/26/2021 12:24 PM FIELD SUPPORT REPRESENTATIVE Oxygen Saturation 96% 07/26/2021 4:59 PM FIELD SUPPORT REPRESENTATIVE Inhaled Oxygen Concentration - - Weight 67.1 kg (148 lb) 07/26/2021 12:24 PM FIELD SUPPORT REPRESENTATIVE Height 160 cm (5' 3 ) 07/26/2021 12:24 PM FIELD SUPPORT REPRESENTATIVE Body Mass Index 26.22 07/26/2021 12:24 PM FIELD SUPPORT REPRESENTATIVE Plan of Treatment Health Maintenance Due Date Last Done Comments LIPID TESTING 1980 MAMMOGRAM 1980 PAP SMEAR 1980 HIV SCREENING 12/31/1995 HEPATITIS C SCREENING 12/26/1998 DTAP/TDAP/TD VACCINES (1 - Tdap) 12/31/1999 HEPATITIS B VACCINE (1 of 3 - 19+ 3-dose series) 12/31/1999 COVID-19 VACCINE (3 - 2023-2 5 season) 2024 11/20/2020, 10/23/2020 DEPRESSION SCREENING 09/14/2024 INFLUENZA VACCINE (Season Ended) 2025 09/19/2020 ZOSTER VACCINE (1 of 2) 2030 HIB VACCINE Aged Out No longer eligi ble based on patient's age to complete this topic HPV VACCINE Aged Out No longer eligi ble based on patient's age to complete this topic MENINGOCOCCAL (Group B) VACCINE SHARED DECISION-MAKING Aged Out No longer eligible based on patient's age to complete this topic MENINGOCOCCAL GROUPS A/C/Y/W VACCINE Aged Out No longer eligible b ased on patient's age to complete this topic PNEUMOCOCCAL VACCINE Aged Out No long er eligible based on patient's age to complete this topic Advance Directives * Full Code (Latest Code Status on File) Date Activated Date Inactivated Comments 02/23/2021 9:30 PM 02/24/2021 2:17 PM * Full Code Date Activated Date Inactivated Comments 02/23/2021 4:26 PM 02/23/2021 9:30 PM * Full Code Date Activated Date Inactivated Comments 02/13/2021 5:56 PM 02/15/2021 2:44 PM Care Teams Wire Basket Maker Relationship Specialty Start Date End Date Dipesh [place] MD [facility] [place] [address] PCP - General Internal Medicine 02/04/21 Dipesh [place] MD [address] [place] [address] 02/04/21
--- OUTSIDE RECORDS SUMMARY | 2024-12-18 09:27 | XMS_ITS | Encounter Summary ---
Author Organization [facility] Address [address] [place] [address] Care Team Providers Care Bedspread Seamer Name Role Phone Dipesh [place] MD Primary Care Provider [phone] Encounter Details Date Type Department Care Team (Late st Contact Info) Description 10/26/2020 Truly Wirelesst Message Enc [facility] Medical Group Family & Internal Medicine [facility] [address] [place] [address] Celine Nichole APNP [address] [place] [address] RE: Question Social History Tobacco Use Types Packs/Day Years Used Date Smoking Tobacco: Former Cigarettes Q uit: 04/06/1999 Smokeless Tobacco: Never Alcohol Use Standard Drinks/Week Comments Yes 0 (1 standard drink = 0.6 oz pur e alcohol) 2-3/ wk BEER AUDIT-C Answer Date Recorded Frequency of Alcohol Consumption 2-3 times a wee k 04/06/2019 Average Number of Drinks 1 or 2 019 Frequency of Binge Drinking Never 03/15 Comments No Sex and Gender Information Value Date Recorded Sex Assigned at Female 04/06/2019 9:20 AM CDT Legal Sex Female 7:15 PM CDT Gender Identity Female 04/06/2019 9:20 AM CDT Sexual Orientation Straight 04/06/2019 9: 20 AM CDT documented as of this encounter Functional [...] Date Author Status No 05/10/2019 11:06 PM [place] Raul Baig RN Active documented in this encounter Progress Notes * HUMERA Henning - 12/15/2020 6:00 PM CDT Pt woke up last night at 1 AM with LLQ pain (radiating to right). Denies any fever or chills, no nausea or vomiting or diarrhea--currently--had some diarrhea last week. No BM today, but hasn't eaten anything today. Pt has long standing history of bouts of diverticulitis. Will send over abx for now and discucssed with her danger signs of when to go to ER to include worsening pain/symptoms, fever, chills, bloody stool, absence of stool or gas. documented in this encounter Plan of Treatment Not on file documented as of this encounter Visit Diagnoses Diagnosis Diverticulitis- Primary Diverticulitis of colon (without mention of hemorrhage) documented in this encounter Additional Health Concerns Infection Onset Date Last Indicated Resolved Time COVID-19 Patient Reported Positive 03/14/2024202304/05/2024 12:32 AM CDT documented as of this encounter Care Teams Bedspread Seamer Relationship Specialty Start Date End Date Dipesh [place] MD [address] [place] [address] PCP - General INTERNAL MEDICINE 04/06/19 documented as of this encounter
--- OUTSIDE RECORDS SUMMARY | 2024-12-18 09:27 | XMS_ITS | Encounter Summary ---
Author Organization [facility] Address [address] [place] [address] Care Team Providers Care Piece Work Inspector Name Role Phone Dipesh [place] MD Primary Care Provider [phone] Encounter Details Date Type Department Care Team (Late st Contact Info) Description 07/15/2023 Link_A_ Media Message Enc [facility] Medical Group Family Medicine - [place] [address] [place] [address] [facility] Provider Screening Social History Tobacco Use Types Packs/Day Years Used Date Smoking Tobacco: Former Cigarettes 1 4 0 04/06/1995 - 04/06/1999 Smokeless Tobacco: Never Comments:N/a Alcohol Use Standard Drinks/Week Comments Yes 0 (1 standard drink = 0.6 oz pur e alcohol) 2-3/ wk BEER AUDIT-C Answer Date Recorded Frequency of Alcohol Consumption 2-3 times a wee k 04/06/2019 Average Number of Drinks 1 or 2 019 Frequency of Binge Drinking Never 03/15 PHQ-2 Answer Date Recorded Patient Health Questionnaire-2 Score 3 11/24/2022 Comments No Sex and Gender Information Value [...] Baig RN Active documented in this encounter Plan of Treatment Not on file documented as of this encounter Visit Diagnoses Not on filedocumented in this encounter Additional Health Concerns Infection Onset Date Last Indicated Resolved Time COVID-19 Patient Reported Positive 03/14/2024202304/05/2024 12:32 AM CDT Assessment Noted Time PHQ-9 Depression Total Score: 12 023 9:26 AM CDT documented as of this encounter Care Teams Piece Work Inspector Relationship Specialty Start Date End Date Dipesh [place] MD [address] [place] [id number] PCP - General INTERNAL MEDICINE 04/06/19 documented as of this encounter
[2024-12-18 09:36] VITALS: BP 126/75; PULSE 104; RESP 16; TEMP 36.2; O2SAT 100
[2024-12-18] MEDS: SODIUM CHLORIDE 0.9% IV 1,000 ML 150 ML IV CONT (10:41)
[2024-12-18] MEDS: MORPHINE SULFATE (*CRX) 4 MG/ML INJ IV PUSH (10:43)
[2024-12-18] MEDS: ONDANSETRON INJ 4 MG/2 ML VIAL IV PUSH (10:43)
[2024-12-18 10:45] VITALS: BP 122/87; O2SAT 100
[2024-12-18 10:48] LABS: Basophils Absolute Auto 0.1 K/mm3 (0.0-0.1); Basophils Percent Auto 1.4 % (0.2-1.2); Eosinophils Absolute Auto 0.1 K/mm3 (0-0.3); Hematocrit 40.9 % (37.0-47.0); Hemoglobin 13.3 g/dL (12.0-15.0); Immature Granulocyte Absolute 0.01 K/mm3 (0.00-0.031); Immature Granulocyte Percent A 0.2 % (0-0.5); Lymphocytes Absolute Auto 2.26 K/mm3 (0.9-3.2); Lymphocytes Percent Auto 44.3 % (18.3-44.2); Mean Corpuscular HGB Conc 32.5 g/dl (32-36); Mean Corpuscular Hemoglobin 29.4 pg (26-34); Mean Corpuscular Volume 90.5 fl (80-100); Monocytes Absolute Auto 0.3 K/mm3 (0.1-0.6); Monocytes Percent Auto 6.1 % (2.6-8.5); Neutrophils Absolute Auto 2.4 K/mm3 (1.3-6.7); Platelet Count Result 289 k/mm3 (150-375); Red Blood Count 4.52 M/mm3 (4.2-5.4); Red Cell Distribution Width 12.8 % (11.5-14.5); White Blood Count 5.1 K/mm3 (4.5-10.0)
--- OUTSIDE RECORDS SUMMARY | 2024-12-18 10:52 | XMS_ITS | Encounter Summary ---
Author Organization [facility] Address [address] [place] [address] Care Team Providers Care Plant Security Guard Name Role Phone Dipesh [place] MD Primary Care Provider Encounter Details Date Type Department Care Team (Late st Contact Info) Description 03/20/2022 atHomestarst Message Enc [facility] Medical Group Orthopedic & Sports Medicine - [place] [address] Deidre Borjas, GEOPHYSICAL OBSERVER-C Still trying to get authorization for MRI [...] documented as of this encounter Care Teams Plant Security Guard Relationship Specialty Start Date End Date Dipesh [place] MD [address] [place] [id number] PCP - General INTERNAL MEDICINE 04/06/19 documented as of this encounter
--- OUTSIDE RECORDS SUMMARY | 2024-12-18 10:52 | XMS_ITS | Encounter Summary ---
Author Organization [facility] Address [address] [place] [address] Care Team Providers Care Dynamic Balancer Set Up Worker Name Role Phone Dipesh [place] MD Primary Care Provider [phone] Encounter Details Date Type Department Care Team (Latest Contact Info) Description 07/20/2018 Abstract [facility] Medical Group , Anthony Doyle [...] documented as of this encounter Care Teams Dynamic Balancer Set Up Worker Relationship Specialty Start Date End Date Dipesh [place] MD [address] [place] [address] PCP - General INTERNAL MEDICINE 04/06/19 documented as of this encounter
--- OUTSIDE RECORDS SUMMARY | 2024-12-18 10:52 | XMS_ITS | Clinical Summary ---
Author Organization [facility] Address [address] [place] [address] Care Team Providers Care Cashier Or Checker Stock Clerk Name Role Phone Dipesh [place] MD Primary Care Provider [phone] Allergies No known active allergies Medications methylPREDNISol raymundo EDUARDO, (MEDROL DOSEPAK) 4 MG tabletIndicatio ns:Chest heaviness Follow package directions 1 each Active Active Problems Problem Noted Date Diagnosed Date Positive self-administered antigen test for COVI D-19 03/16/2024 Small bowel obstruction ([facility]) 2023 Abdominal distension 10/09/2023 Anxiety 10/09/2023 [...] Comments Blood Pressure 122/82 10/09/2023 9:41 AM SENIOR MECHANICAL PROJECT ENGINEER Pulse 83 10/09/2023 9:41 AM SENIOR MECHANICAL PROJECT ENGINEER Temperature 36.5 C (97.7 F) 10/09/2023 9:41 AM SENIOR MECHANICAL PROJECT ENGINEER Respiratory Rate 16 10/09/2023 9:41 AM SENIOR MECHANICAL PROJECT ENGINEER Oxygen Saturation 99% 10/09/2023 9:41 AM SENIOR MECHANICAL PROJECT ENGINEER Inhaled Oxygen Concentration - - Weight 64.4 kg (142 lb) 10/09/2023 9:41 AM SENIOR MECHANICAL PROJECT ENGINEER Height 160 cm (5' 3 ) 10/09/2023 9:41 AM SENIOR MECHANICAL PROJECT ENGINEER Body Mass Index 25.15 10/09/2023 9:41 AM SENIOR MECHANICAL PROJECT ENGINEER Plan of Treatment Health Maintenance Due Date Last Done Comments Annual Physical 12/31/1983 Hepatitis C 1998 DTaP, Tdap and Td Vaccines ( 1 - Tdap) 12/31/1999 Hepatitis B Vaccines (1 of 3 - 19+ 3-dose series) 12/31/1999 Mammogram Screening 2020 COVID-19 Vaccine (3 - 2023-2 5 season) 2024 11/20/2020, 10/23/2020 PHQ-2 (Physician Vendor) 09/14/2024 10/09/2023 HPV Vaccines Aged Out No [...] to complete this topic Insurance Care Teams Cashier Or Checker Stock Clerk Relationship Specialty Start Date End Date Dipesh [place] MD [address] [place] [address] [id number] PCP - General INTERNAL MEDICINE 04/06/19
--- OUTSIDE RECORDS SUMMARY | 2024-12-18 10:52 | XMS_ITS | Clinical Summary ---
Author Organization [facility] [employer] Address [address] [facility] [place] [address] Care Team Providers Care Business Programmer Name Role Phone Dipesh [place] MD Primary Care Provider [phone] Dipesh [place] MD Unavailable [phone] Source Comments [facility],non-owned Affiliates and Associated Physician Practices is amultiple site organization consisting of ambulatory clinics and hospital sitesin [place], [place], [place] and [place]. This disclosure is being madepursuant to the Care Everywhere program and may not contain all information available regarding this patient. Last updated 18.[facility] [employer] Allergies No known active allergies Medications * [...] 02/13/2021 Immunizations Name Administration Dates Next Due [employer] primary monoval ent 12+ yr 0.3mL Purple [...] Comments Blood Pressure 111/78 07/26/2021 4:59 PM ENGINE REPAIR SUPERVISOR Pulse 88 07/26/2021 12:24 PM ENGINE REPAIR SUPERVISOR Temperature 36.7 C (98 F) 07/26/2021 12:24 PM ENGINE REPAIR SUPERVISOR Respiratory Rate 18 07/26/2021 12:24 PM ENGINE REPAIR SUPERVISOR Oxygen Saturation 96% 07/26/2021 4:59 PM ENGINE REPAIR SUPERVISOR Inhaled Oxygen Concentration - - Weight 67.1 kg (148 lb) 07/26/2021 12:24 PM ENGINE REPAIR SUPERVISOR Height 160 cm (5' 3 ) 07/26/2021 12:24 PM ENGINE REPAIR SUPERVISOR Body Mass Index 26.22 07/26/2021 12:24 PM ENGINE REPAIR SUPERVISOR Plan of Treatment Health Maintenance Due Date [...] 5:56 PM 02/15/2021 2:44 PM Care Teams Business Programmer Relationship Specialty Start Date End Date Dipesh [place] MD [facility] [place] [address] PCP - General Internal Medicine 02/04/21 Dipesh [place] MD [address] [place] [address] 02/04/21
--- OUTSIDE RECORDS SUMMARY | 2024-12-18 10:53 | XMS_ITS | Encounter Summary ---
Author Organization [facility] Address [address] [place] [address] Care Team Providers Care Senior Lead Developer Name Role Phone Dipesh Horton MD Primary Care Provider [phone] Encounter Details Date Type Department Care Team (Late st Contact Info) Description 10/26/2020 Silentsoftt Message Enc [facility] Medical Group Family & Internal Medicine [facility] [address] [place] [address] Celine Nichole APNP [address] [place] [address] RE: Question Social History Tobacco [...] documented as of this encounter Care Teams Senior Lead Developer Relationship Specialty Start Date End Date Dipesh Horton MD [address] [place] [address] PCP - General INTERNAL MEDICINE 04/06/19 documented as of this encounter
--- OUTSIDE RECORDS SUMMARY | 2024-12-18 10:53 | XMS_ITS | Encounter Summary ---
Author Organization [facility] Address [address] [place] [address] Care Team Providers Care Inspector Brake Lining Name Role Phone Dipesh Horton MD Primary Care Provider [phone] Encounter Details Date Type Department Care Team (Late st Contact Info) Description 07/15/[address] My [employer] [address] [facility] Medical Group Family Medicine [place] [address] [place] [address] [facility] Provider Screening Social History Tobacco Use Types [...] documented as of this encounter Care Teams Inspector Brake Lining Relationship Specialty Start Date End Date Dipesh oHrton MD [address] [place] [address] PCP - General INTERNAL MEDICINE 04/06/19 documented as of this encounter
[2024-12-18 10:55] LABS: Add Urine Microscopic? YES; Appearance Urine Cloudy (Clear); Bacteria Urine None Seen /hpf; Bilirubin Urine Negative (Negative); Blood Urine Negative (Negative); Color Urine Yellow (Yellow); Glucose Urine UA Negative (Negative); Ketones Urine Negative (Negative); Leukocyte Esterase Ur Negative LEU/UL (Negative); Nitrate Urine Negative (Negative); Non Pathogenic Casts 0-2; Protein Urine Negative (Negative); RBC Urine 0-2 /hpf (0-2); Specific Grav Ur 1.009 (1.001-1.035); Squamous Epithelial Cell Urine None Seen /hpf (Few); Urobilinogen Urine 0.2 mg/dL (<2.0); WBC Urine 0-5 /hpf (0-3); pH Urine 5.5 (5.0-9.0)
[2024-12-18 11:00] VITALS: BP 120/78; O2SAT 96
[2024-12-18 11:00] LABS: Alanine Aminotransferase 25 U/L (6-35); Albumin Level 4.6 g/dL (3.5-5.1); Alkaline Phosphatase 116 U/L (38-126); Anion Gap 12 mmol/L (4-12); Aspartate Amino Transferase 34 U/L (14-36); Bilirubin,Total 0.8 mg/dL (0.2-1.3); Blood Urea Nitrogen 13 mg/dL (7-17); Calcium 9.3 mg/dL (8.4-10.2); Carbon Dioxide 25 mmol/L (22-30); Chloride 105 mmol/L (98-107); Estimated CRCL calculation 87 ml/min; Estimated Glomerular Filt Rate > 60; Glucose 94 mg/dL (65-110); Potassium 4.1 mmol/L (3.4-5.0); Sodium 142 mmol/L (137-145)
[2024-12-18] MEDS: KETOROLAC 30 MG/ML VIAL (*BKC) IV PUSH (11:35)
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
[2024-12-18 12:21] VITALS: BP 118/76; PULSE 77; RESP 16; O2SAT 100
== END 2024-12-18 12:20 | disposition home or self-care (01) ==
PROVIDERS: Emergency Provider Family Medicine; PCP Internal Medicine
DX: K59.01 Slow transit constipation (principal); M54.50 Low back pain, unspecified; E66.3 Overweight; Z68.26 Body mass index [BMI] 26.0-26.9, adult; Z87.442 Personal history of urinary calculi; Z90.49 Acquired absence of other specified parts of digestive tract; Z90.710 Acquired absence of both cervix and uterus; Z90.722 Acquired absence of ovaries, bilateral
CPT/HCPCS: 36415; 74176; 80053; 81001; 85025; 96361; 96374; 96375; 99284; J1885; J2270; J2405; J7030

== ENCOUNTER 2024-12-20 22:39 | Emergency (ER) | payer OTHER, SELFPAY ==
--- NOTE | ~2024-12-20 | CT_ITS ---
Noncontrast CT scan of the thoracolumbar spine CLINICAL HISTORY: Back pain TECHNIQUE: Axial noncontrast imaging of the thoracolumbar spine was performed. Sagittal and coronal r eformatted images were constructed. Dose reduction technique was used on this scan by utilizing autom ated exposure control and iterative reconstruction technique. The dose-length product (DLP) was 570.1 6 mGy-cm. FINDINGS: There is no fracture or soft tissue thoracic spine. Vertebral bodies maintain normal height and line. There is degenerative disc narrowing at T6-T7. Remaining disc spaces are well preserved. No significant disc bulge or herniation seen at any thoracic level. No spinal canal stenosis, cord co mpression, or neural foraminal narrowing identified in the thoracic spine. There is no fracture or dislocation of the lumbar spine. Vertebral bodies maintain normal height and alignment. Intervertebral disc spaces are well preserved. Probable minimal disc bulge with facet arthropathy present at L4-L5, with minimal central canal steno sis. No other areas of canal stenosis identified. There is mild right neural foraminal narrowing at L 4-L5. Remaining neural foramina are preserved. Paravertebral soft tissues are unremarkable. Impression: Mild degenerative spondylosis at L4-L5. Otherwise, no significant abnormality in the thoracic or lumbar spine. Reviewed, dictated and finalized at [facility]. Impression: Mild degenerative spondylosis at L4-L5. Otherwise, no significant abnormality in the thoracic or lumbar spine.
[2024-12-20 22:40] VITALS: BP 122/95; PULSE 100; RESP 17; TEMP 36.2; O2SAT 100
--- OUTSIDE RECORDS SUMMARY | 2024-12-20 22:41 | XMS_ITS | Clinical Summary ---
Author Organization [facility] Address [address] [place] [address] Care Team Providers Care Political Theory Professor Name Role Phone Dipesh Horton MD Primary Care Provider [phone] Allergies No known active allergies Medications methylPREDNISol raymundo EDUARDO, (MEDROL DOSEPAK) 4 MG tabletIndicatio ns:Chest heaviness Follow package directions 1 each Active Active Problems Problem Noted Date Diagnosed Date Positive self-administered antigen test for COVI D-19 03/16/2024 Small bowel obstruction ([facility]) 2023 Abdominal distension 10/09/2023 Anxiety 10/09/2023 History [...] Comments Blood Pressure 122/82 10/09/2023 9:41 AM LICENSE DISTRIBUTOR Pulse 83 10/09/2023 9:41 AM LICENSE DISTRIBUTOR Temperature 36.5 C (97.7 F) 10/09/2023 9:41 AM LICENSE DISTRIBUTOR Respiratory Rate 16 10/09/2023 9:41 AM LICENSE DISTRIBUTOR Oxygen Saturation 99% 10/09/2023 9:41 AM LICENSE DISTRIBUTOR Inhaled Oxygen Concentration - - Weight 64.4 kg (142 lb) 10/09/2023 9:41 AM LICENSE DISTRIBUTOR Height 160 cm (5' 3 ) 10/09/2023 9:41 AM LICENSE DISTRIBUTOR Body Mass Index 25.15 10/09/2023 9:41 AM LICENSE DISTRIBUTOR Plan of Treatment Health Maintenance Due Date Last Done Comments Annual Physical 12/31/1983 Hepatitis C 1998 DTaP, Tdap and Td Vaccines ( 1 - Tdap) 12/31/1999 Hepatitis B Vaccines (1 of 3 - 19+ 3-dose series) 12/31/1999 Mammogram Screening 2020 COVID-19 Vaccine (3 - 2023-2 5 season) 2024 11/20/2020, 10/23/2020 PHQ-2 (Physician [place]) 09/14/2024 10/09/2023 HPV Vaccines Aged Out No [...] to complete this topic Insurance Care Teams Political Theory Professor Relationship Specialty Start Date End Date Dipesh Horton MD [address] [place] [address] [id number] PCP - General INTERNAL MEDICINE 04/06/19
--- OUTSIDE RECORDS SUMMARY | 2024-12-20 22:41 | XMS_ITS | Encounter Summary ---
Author Organization [facility] Address [address] [place] [address] Care Team Providers Care Production Lapping Machine Operator Name Role Phone Dipesh Horton MD Primary Care Provider [phone] Encounter Details Date Type Department Care Team (Latest Contact Info) Description 07/20/2018 Abstract [facility] Medical Group , Anthony Doyle [...] documented as of this encounter Care Teams Production Lapping Machine Operator Relationship Specialty Start Date End Date Dipesh Horton MD [address] [place] [address] PCP - General INTERNAL MEDICINE 04/06/19 documented as of this encounter
--- OUTSIDE RECORDS SUMMARY | 2024-12-20 22:41 | XMS_ITS | Encounter Summary ---
Author Organization [facility] Address [address] [place] [address] Care Team Providers Care Biomedical Engineering Professor Name Role Phone Dipesh Horton MD Primary Care Provider [phone] Encounter Details Date Type Department Care Team (Late st Contact Info) Description 03/20/2022 Exentt Message Enc [facility] Medical Group Orthopedic & Sports Medicine - [place] [address] Deidre Borjas, SPORTS THERAPIST-C Still trying to get authorization for MRI [...] documented as of this encounter Care Teams Biomedical Engineering Professor Relationship Specialty Start Date End Date Dipesh Horton MD [address] [place] [id number] PCP - General INTERNAL MEDICINE 04/06/19 documented as of this encounter
--- OUTSIDE RECORDS SUMMARY | 2024-12-20 22:41 | XMS_ITS | Clinical Summary ---
Author Organization [facility] Address [address] [place] [address] Care Team Providers Care Theatrical Scenic Designer Name Role Phone Dipesh Horton MD Primary Care Provider [phone] Dipesh Horton MD Unavailable [phone] Source Comments [facility],non-owned Affiliates and Associated Physician Practices is amultiple site organization consisting of ambulatory clinics and hospital sitesin [place], [place], [place] and [place]. This disclosure is being madepursuant to the Care Everywhere program and may not contain all information available regarding this patient. Last updated 18.[facility] Allergies No known active allergies Medications * [...] 02/13/2021 Immunizations Name Administration Dates Next Due [employer] primary monoval ent 12+ yr 0.3mL Purple [...] Comments Blood Pressure 111/78 07/26/2021 4:59 PM EXTENSION ASSOCIATE Pulse 88 07/26/2021 12:24 PM EXTENSION ASSOCIATE Temperature 36.7 C (98 F) 07/26/2021 12:24 PM EXTENSION ASSOCIATE Respiratory Rate 18 07/26/2021 12:24 PM EXTENSION ASSOCIATE Oxygen Saturation 96% 07/26/2021 4:59 PM EXTENSION ASSOCIATE Inhaled Oxygen Concentration - - Weight 67.1 kg (148 lb) 07/26/2021 12:24 PM EXTENSION ASSOCIATE Height 160 cm (5' 3 ) 07/26/2021 12:24 PM EXTENSION ASSOCIATE Body Mass Index 26.22 07/26/2021 12:24 PM EXTENSION ASSOCIATE Plan of Treatment Health Maintenance Due Date [...] 5:56 PM 02/15/2021 2:44 PM Care Teams Theatrical Scenic Designer Relationship Specialty Start Date End Date Dipesh Horton MD [facility] [place] [address] PCP - General Internal Medicine 02/04/21 Dipesh Horton MD [address] [place] [address] 02/04/21
--- OUTSIDE RECORDS SUMMARY | 2024-12-20 22:41 | XMS_ITS | Encounter Summary ---
Author Organization [facility] Address [address] [place] [address] Care Team Providers Care Cigar Machine Feeder Name Role Phone Dipesh Horton MD Primary Care Provider [phone] Encounter Details Date Type Department Care Team (Late st Contact Info) Description 10/26/2020 Health & Blisst Message Enc [facility] Medical Group Family & Internal Medicine [facility] [address] [place] [address] Celine Nichole APNP [address] [place] [address] RE: Question Social History Tobacco [...] documented as of this encounter Care Teams Cigar Machine Feeder Relationship Specialty Start Date End Date Dipesh Horton MD [address] [place] [address] PCP - General INTERNAL MEDICINE 04/06/19 documented as of this encounter
--- OUTSIDE RECORDS SUMMARY | 2024-12-20 22:41 | XMS_ITS | Encounter Summary ---
Author Organization [facility] Address [address] [place] [address] Care Team Providers Care Bale Coverer Name Role Phone Dipesh Horton MD Primary Care Provider [phone] Encounter Details Date Type Department Care Team (Late st Contact Info) Description 07/15/2023 Cogbooks Message Enc [facility] Medical Group Family Medicine [place] [address] [place] [address] [facility] Provider Screening Social History Tobacco Use Types [...] documented as of this encounter Care Teams Bale Coverer Relationship Specialty Start Date End Date Dipesh Horton MD [address] [place] [address] PCP - General INTERNAL MEDICINE 04/06/19 documented as of this encounter
[2024-12-21] MEDS: KETOROLAC 30 MG/ML VIAL (*BKC) IM (02:56)
[2024-12-21] MEDS: ONDANSETRON HCL ODT 4 MG TABLET PO (02:56)
[2024-12-21 03:10] LABS: Add Urine Microscopic? YES; Appearance Urine Turbid (Clear); Bacteria Urine None Seen /hpf; Bilirubin Urine Negative (Negative); Blood Urine Negative (Negative); Color Urine Yellow (Yellow); Glucose Urine UA Negative (Negative); Ketones Urine 1+ mg/dL (Negative); Leukocyte Esterase Ur Negative LEU/UL (Negative); Nitrate Urine Negative (Negative); Non Pathogenic Casts 0-2; Protein Urine Trace mg/dL (Negative); RBC Urine 0-2 /hpf (0-2); Squamous Epithelial Cell Urine None Seen /hpf (Few); WBC Urine 0-5 /hpf (0-3)
--- OUTSIDE RECORDS SUMMARY | 2024-12-21 03:20 | XMS_ITS | Encounter Summary ---
Author Organization [facility] Address [address] [place] [address] Care Team Providers Care Validation Leader Name Role Phone Dipesh Horton MD Primary Care Provider [phone] Encounter Details Date Type Department Care Team (Late st Contact Info) Description 03/20/2022 [employer] Message Enc [facility] Medical Group Orthopedic & Sports Medicine - [place] [address] Deidre Borjas, SEAM HAMMERER-C Still trying to get authorization for MRI [...] documented as of this encounter Care Teams Validation Leader Relationship Specialty Start Date End Date Dipesh Horton MD [address] [place] [address] PCP - General INTERNAL MEDICINE 04/06/19 documented as of this encounter
--- OUTSIDE RECORDS SUMMARY | 2024-12-21 03:20 | XMS_ITS | Encounter Summary ---
Author Organization [facility] Address [address] [place] [address] Care Team Providers Care Superintendent Car Construction Name Role Phone Dipesh Horton MD Primary Care Provider [phone] Encounter Details Date Type Department Care Team (Latest Contact Info) Description 07/20/2018 Abstract [facility] Medical Group , Anthony Doyle MD Social [...] documented as of this encounter Care Teams Superintendent Car Construction Relationship Specialty Start Date End Date Dipesh Horton MD [address] [place] [address] PCP - General INTERNAL MEDICINE 04/06/19 documented as of this encounter
--- OUTSIDE RECORDS SUMMARY | 2024-12-21 03:20 | XMS_ITS | Clinical Summary ---
Author Organization [facility] Address [address] [place] [address] Care Team Providers Care Journeyman Carpenter Name Role Phone Dipehs Horton MD Primary Care Provider [phone] Allergies No known active allergies Medications methylPREDNISol raymundo EDUARDO, (MEDROL DOSEPAK) 4 MG tabletIndicatio ns:Chest heaviness Follow package directions 1 each Active Active Problems Problem Noted Date Diagnosed Date Positive self-administered antigen test for COVI D-19 03/16/2024 Small bowel obstruction ([facility]) 2023 Abdominal distension 10/09/2023 Anxiety 10/09/2023 History [...] Comments Blood Pressure 122/82 10/09/2023 9:41 AM C2 TACTICAL ANALYSIS TECHNICIAN Pulse 83 10/09/2023 9:41 AM C2 TACTICAL ANALYSIS TECHNICIAN Temperature 36.5 C (97.7 F) 10/09/2023 9:41 AM C2 TACTICAL ANALYSIS TECHNICIAN Respiratory Rate 16 10/09/2023 9:41 AM C2 TACTICAL ANALYSIS TECHNICIAN Oxygen Saturation 99% 10/09/2023 9:41 AM C2 TACTICAL ANALYSIS TECHNICIAN Inhaled Oxygen Concentration - - Weight 64.4 kg (142 lb) 10/09/2023 9:41 AM C2 TACTICAL ANALYSIS TECHNICIAN Height 160 cm (5' 3 ) 10/09/2023 9:41 AM C2 TACTICAL ANALYSIS TECHNICIAN Body Mass Index 25.15 10/09/2023 9:41 AM C2 TACTICAL ANALYSIS TECHNICIAN Plan of Treatment Health Maintenance Due Date Last Done Comments Annual Physical 12/31/1983 Hepatitis C 1998 DTaP, Tdap and Td Vaccines ( 1 - Tdap) 12/31/1999 Hepatitis B Vaccines (1 of 3 - 19+ 3-dose series) 12/31/1999 Mammogram Screening 2020 COVID-19 Vaccine (3 - 2023-2 5 season) 2024 11/20/2020, 10/23/2020 PHQ-2 (Physician [place]) 09/14/2024 10/09/2023 HPV Vaccines Aged Out No [...] to complete this topic Insurance Care Teams Journeyman Carpenter Relationship Specialty Start Date End Date Dipesh Horton MD [address] [place] [address] [id number] PCP - General INTERNAL MEDICINE 04/06/19
--- OUTSIDE RECORDS SUMMARY | 2024-12-21 03:20 | XMS_ITS | Encounter Summary ---
Author Organization [facility] Address [address] [place] [id number] Care Team Providers Care Marketing Technology Coordinator Name Role Phone Dipesh Horton MD Primary Care Provider [phone] Encounter Details Date Type Department Care Team (Late st Contact Info) Description 10/26/[address] [facility] Family & Internal Medicine [facility] [address] [place] [address] Celine Nichole APNP [address] [place] [address] RE: Question Social History Tobacco [...] documented as of this encounter Care Teams Marketing Technology Coordinator Relationship Specialty Start Date End Date Dipesh Horton MD [address] [place] [id number] PCP - General INTERNAL MEDICINE 04/06/19 documented as of this encounter
--- OUTSIDE RECORDS SUMMARY | 2024-12-21 03:20 | XMS_ITS | Clinical Summary ---
Author Organization [facility] Address [address] [place] [address] Care Team Providers Care Computer Engineering Professor Name Role Phone Dipesh Horton MD Primary Care Provider [phone] Dipesh Horton MD Unavailable [phone] Source Comments [facility],non-owned Affiliates and Associated Physician Practices is amultiple site organization consisting of ambulatory clinics and hospital sitesin [place], [place], [place] and [place]. This disclosure is being madepursuant to the Care Everywhere program and may not contain all information available regarding this patient. Last updated 18.[facility] Allergies No known active allergies Medications * [...] 02/13/2021 Immunizations Name Administration Dates Next Due HollyGridcentric primary monoval ent 12+ yr 0.3mL Purple [...] Comments Blood Pressure 111/78 07/26/2021 4:59 PM RECRUITMENT ASSISTANT Pulse 88 07/26/2021 12:24 PM RECRUITMENT ASSISTANT Temperature 36.7 C (98 F) 07/26/2021 12:24 PM RECRUITMENT ASSISTANT Respiratory Rate 18 07/26/2021 12:24 PM RECRUITMENT ASSISTANT Oxygen Saturation 96% 07/26/2021 4:59 PM RECRUITMENT ASSISTANT Inhaled Oxygen Concentration - - Weight 67.1 kg (148 lb) 07/26/2021 12:24 PM RECRUITMENT ASSISTANT Height 160 cm (5' 3 ) 07/26/2021 12:24 PM RECRUITMENT ASSISTANT Body Mass Index 26.22 07/26/2021 12:24 PM RECRUITMENT ASSISTANT Plan of Treatment Health Maintenance Due Date [...] 5:56 PM 02/15/2021 2:44 PM Care Teams Computer Engineering Professor Relationship Specialty Start Date End Date Dipesh Horton MD [facility] [place] [address] PCP - General Internal Medicine 02/04/21 Dipesh Horton MD [address] [place] [address] 02/04/21
--- OUTSIDE RECORDS SUMMARY | 2024-12-21 03:20 | XMS_ITS | Encounter Summary ---
Author Organization [facility] Address [address] [place] [address] Care Team Providers Care Quality Technician Name Role Phone Dipesh Horton MD Primary Care Provider [phone] Encounter Details Date Type Department Care Team (Late st Contact Info) Description 07/15/2023 [place] Message Enc [facility] Family Medicine - [place] [address] [place] [address] [place] [address] [facility] Provider Screening Social History Tobacco Use Types [...] documented as of this encounter Care Teams Quality Technician Relationship Specialty Start Date End Date Dipesh Horton MD [address] [place] [id number] PCP - General INTERNAL MEDICINE 04/06/19 documented as of this encounter
--- NOTE | 2024-12-21 03:31 | ED_ITS ---
HPI - Back Pain/Injury General Chief Complaint: Back Pain/Injury Stated Complaint: lower back pain Time Seen by Provider: 12/21/24 02:12 Source: patient Mode of arrival: EMS Limitations: no limitations History of Present Illness HPI Narrative: This is a 43-year-old female, with history diverticulitis status post sigmoidectomy, who presents emergency department complaining of low back pain. The patient states she was standing from a bent forward position lifting and in the laundry basket, when she felt severe right-sided back pain radiating to the leg. With some right-sided abdominal pain. This is associated with right leg and foot numbness. She denies fevers, chills, known trauma, loss of sensation in the groin, loss of bowel or bladder control. She describes pain as stabbing, rated 9/10. She has no other complaints at this time. She was seen in this emergency room 2 days ago for constipation. CT abdomen at that time was not concerning for acute intra-abdominal process. Related Data Allergies Allergy/AdvReac Type Severity Reaction Status Date / Time No Known Allergies Allergy Verified 12/20/24 22:40 Review of Systems Review of Systems: All systems reviewed & are unremarkable except as noted in HPI and below PMFSH Past Medical History Medical History Overweight (BMI 25.0-29.9) Right ureteral stone Acute diverticulitis resolved after sigmoidectomy in 2020 Surgical History Surgical History History of abdominal surgery History of incisional hernia repair laparoscopic incisional hernia repair July 2021 [facility] History of appendectomy laparoscopic appendectomy February 2021 S/P laparoscopic-assisted sigmoidectomy February 2021 at [place], [place] History of hysterectomy 2013, ovaries removed each year the next 2 years History of cholecystectomy 2010, laparoscopic Family History Family History Other Carcinoma of colon Other Diabetes mellitus Grandparent Heart attack Other Family history of coronary artery disease Social History Social History Smoking status: Never smoker Second hand tobacco smoke exposure: No Alcohol intake: current Drinks per week: 6 Substance use: never Substance use type: does not use Lack of Transportation: No Lack of Food: Never True Current Housing: I Have Housing Concerned About Future Housing: No Difficulty Paying Gas/Electric Bills: No Difficulty Paying for Meds: No Currently Unemployed: No Education: Associate Degree Difficulty w/ Childcare or Family Care: No Gender identity (if verbalized by the patient): Female Spiritual care concerns: No Exam Narrative: GENERAL: Well-developed, well-nourished, uncomfortable HEAD: Normocephalic, atraumatic. EYES: PERRLA and EOMI. CHEST: Clear to auscultation. No respiratory distress. No wheezes rales or rhonchi HEART: Regular rate and rhythm. No murmur heard. Normal peripheral pulses. ABDOMEN: Soft, nontender, nondistended, normal active bowel sounds. BACK: Midline spine tenderness to palpation at approximately T8 and L4 with no step-off, crepitus or overlying skin changes EXTREMITIES: Normal range of motion. No edema. SKIN: Warm, dry, no rash. NEURO: Alert and oriented x3. No focal deficit. Moving all 4 limbs spontaneously PSYCH: Normal mood and affect. Course Course Emergency Course: 05:36 - STAT Rad interpretation of CT lumbar and thoracic spine shows neuroforaminal stenosis but was not concerning for fracture or or mass. I suspect this is the cause of the patient's pain. A urinalysis also showed changes consistent with a urinary tract infection. Given the patient's recent unremarkable CT abdomen pelvis, I do not suspect the need for repeat imaging. The patient's exam is not concerning for vascular deficit and is consistent with sciatica. After IM and p.o. pain medications, pain began to improve. Will discharge with pain medications, muscle relaxers, antibiotics and recommendation for primary care follow-up. I discussed the findings and recommendations with the patient. Discussed return and emergency precautions including signs/symptoms of cauda equina, epidural abscess and acute abdomen. The patient voiced understanding and agreement with the plan. All questions answered to her satisfaction. Vital Signs Vital signs: Vital Signs Temperature 97.2 F L 12/20/24 22:40 Pulse Rate 100 12/20/24 22:40 Respiratory Rate 17 12/20/24 22:40 Blood Pressure 122/95 H 12/20/24 22:40 Pulse Oximetry 100 12/20/24 22:40 Oxygen Delivery Room Air 12/20/24 22:40 Temperature 97.2 F L 12/20/24 22:40 Pulse Rate 80 12/21/24 06:03 Respiratory Rate 16 12/21/24 06:03 Blood Pressure 128/86 12/21/24 06:03 Pulse Oximetry 98 12/21/24 06:03 Oxygen Delivery Room Air 12/20/24 22:40 MDM - Back Pain/Injury MDM Narrative Medical decision making narrative: Plan: Imaging, labs, pain control, reassess Differential Diagnosis Differential diagnosis: Likely lumbar radiculopathy, sciatica, thoracic back pain and other (Disc herniation, mass, fracture, UTI, other) Lab Data Labs: Lab Results 12/21/24 Range/Units 02:57 Urine Color Yellow (Yellow) Urine Appearance Turbid H (Clear) Urine pH 8.0 (5.0-9.0) Ur Specific [place] 1.020 (1.001-1.035) Urine Protein Trace (Negative) mg/dL Urine Glucose (UA) Negative (Negative) mg/dL Urine Ketones 1+ H (Negative) mg/dL Ur Blood (Man) Negative (Negative) Urine Nitrate Negative (Negative) Urine Bilirubin Negative (Negative) Urine Urobilinogen 1.0 (<2.0) mg/dL Leukocyte Esterase Rfl Negative (Negative) YESSI/UL Urine RBC 0-2 (0-2) /hpf Urine WBC 0-5 (0-3) /hpf Ur Squamous Epith Cells None seen (Few) /hpf Urine Bacteria None seen /hpf Urine Casts 0-2 Discharge Plan Discharge Clinical Impression: Acute pain of right lower extremity, UTI (urinary tract infection) Sciatica Qualifiers: Laterality: right Qualified Code(s): M54.31 - Sciatica, right side Low back pain Qualifiers: Chronicity: acute Back pain laterality: right Sciatica presence: with sciatica Sciatica laterality: sciatica of right side Qualified Code(s): M54.41 - Lumbago with sciatica, right side Patient Disposition: Home Condition: Stable Instructions: Antibiotic Form, Urinary Tract Infection in Women (ED), Sciatica (ED) Additional Instructions: You were seen in the emergency department. A scan of the back was not concerning for fracture or mass. I suspect your pain is related to the compression of a nerve. Your urinalysis showed changes consistent with a urinary tract infection. I recommend pain medications, muscle relaxers, lidocaine patches and a course of oral antibiotics. I recommend following up with the primary care doctor. If you develop loss of sensation in the groin, loss of bowel/bladder control, weakness in the leg, or if you have other emergent concerns for life, limb, or eyesight, return to the emergency department. Patient Language: Swedish Prescriptions: New sulfamethoxazole-trimethoprim [Bactrim DS] 800-160 mg tablet 1 tablet PO Q12H 7 Days Qty: 14 0RF naproxen 500 mg tablet 500 mg PO BID PRN (Reason: pain) Qty: 20 0RF hydrocodone-acetaminophen 5-325 mg tablet 1 tablet PO Q8H PRN (Reason: pain, severe) Qty: 6 0RF lidocaine 5 % adhesive patch,medicated 1 patch topical DAILY Qty: 30 0RF Rx Instructions: leave on most painful area for up to 12 hrs cyclobenzaprine 10 mg tablet 10 mg PO BID PRN (Reason: muscle spasm) Qty: 20 0RF No Action dicyclomine 20 mg tablet 20 mg PO TID PRN (Reason: Abdominal Discomfort) Qty: 15 0RF ondansetron 4 mg tablet,disintegrating 4 mg PO Q8H PRN (Reason: nausea and vomiting) Qty: 15 0RF ibuprofen 600 mg tablet 600 mg PO TID PRN (Reason: pain) Qty: 30 0RF cyclobenzaprine 5 mg tablet 5 mg PO TID Qty: 20 0RF polyethylene glycol 3350 [Miralax] 17 gram/dose powder 17 g PO DAILY Qty: 119 0RF omeprazole 40 mg capsule,delayed release(DR/EC) 40 mg PO BID Qty: 60 0RF sucralfate 1 gram tablet 1 g PO Q6H PRN (Reason: abdominal distention) Qty: 60 0RF ondansetron 4 mg tablet,disintegrating 4 mg PO Q8H PRN (Reason: nausea and vomiting) Qty: 60 0RF famotidine 20 mg tablet 20 mg PO DAILY Qty: 30 0RF dicyclomine 20 mg tablet 20 mg PO TID Qty: 30 0RF ondansetron 4 mg tablet,disintegrating 4 mg PO Q8H PRN (Reason: nausea and vomiting) Qty: 10 0RF Follow-up/Referrals: Sol,Dipesh Goodman MD [Primary Care Provider] - 2 Weeks Stand Alone Forms: Work/School Release IP Time of Disposition: 05:36
[2024-12-21 04:29] VITALS: BP 128/86; PULSE 80; RESP 16; O2SAT 98
[2024-12-21] MEDS: oxyCODONE/ACETAMINOPHEN (*CRX) 10-325 MG TABLET 1 TAB PO (04:30)
[2024-12-21] MEDS: HYDROmorphone HCL INJ (*CRX) 1 MG/ML SYR 0.5 MG IV PUSH (04:30)
[2024-12-21 06:03] VITALS: BP 128/86; PULSE 80; RESP 16; O2SAT 98
== END 2024-12-21 06:05 | disposition home or self-care (01) ==
PROVIDERS: Emergency Provider Preventive Medicine Aerospace Medicine; PCP Internal Medicine
DX: M54.41 Lumbago with sciatica, right side (principal); N39.0 Urinary tract infection, site not specified
CPT/HCPCS: 72128; 72131; 81001; 96372; 96374; 99284; A9270; J1171; J1885

== ENCOUNTER 2025-01-14 10:36 | Outpatient (CLI) | payer OTHER, SELFPAY ==
--- NOTE | ~2025-01-14 | MR_ITS ---
MRI of the lumbar spine Clinical History: Back pain Technique: Axial T2-weighted images, and sagittal T1-weighted, T2-weighted, and T2 fat-sat images wer e acquired. Findings: There is no fracture or subluxation of the lumbar spine. Vertebral bodies maintain normal a lignment. No suspicious bone marrow signal abnormality seen. At L1-L2 and L2-L3, there is no disc bulge or herniation. No spinal canal stenosis or neural foramina l narrowing at these levels. L3-L4, there is right foraminal disc extrusion with impingement of the exiting right-sided nerve root and severe right neural foraminal narrowing at this level. No spinal canal stenosis or left neural f oraminal narrowing. At L4-L5, there is minimal disc bulge with moderate facet arthropathy. No bibi central canal stenosi s. There is no definite neural foraminal narrowing. At L5-S1, there is no disc bulge or herniation. There is minimal facet arthropathy. No central canal stenosis or neural foraminal narrowing. Paravertebral soft tissues are otherwise unremarkable. Impression: Right foraminal disc extrusion at L3-L4 with severe right neural foraminal narrowing at this level an d impingement of the exiting right-sided nerve root. Reviewed, dictated and finalized at location . Impression: Right foraminal disc extrusion at L3-L4 with severe right neural foraminal narr owing at this level and impingement of the exiting right-sided nerve root.
== END 2025-01-14 10:37 | disposition home or self-care (01) ==
LOC: MICIMG 10:36
PROVIDERS: PCP Internal Medicine; Visit Provider Internal Medicine
DX: R29.898 Other symptoms and signs involving the musculoskeletal system (principal); M51.26 Other intervertebral disc displacement, lumbar region
CPT/HCPCS: 72148